=== PATIENT | female | born 1950 | race Caucasian/White ===

== ENCOUNTER → 2017-12-27 | Outpatient (CLI) | payer MEDICARE ==
[2017-12-27 11:18] LABS: Basophils % (A) 1 %; Eosinophils # (A) 0.2 k/uL (0-0.7); Eosinophils % (A) 4 %; HCT 45.9 % (34.0-46.0); HGB 14.8 gm/dL (11.4-16.0); Lymphocytes # (A) 1.5 k/uL (1.0-4.8); Lymphocytes % (A) 32 %; MCHC 32.3 g/dL (31.0-37.0); MCV 89.8 fL (80.0-100.0); Mean Platelet Volume 6.5; Monocytes # (A) 0.2 k/uL (0-1.0); Monocytes % (A) 4 %; Neutrophils # (A) 2.7 k/uL (1.3-7.7); Neutrophils % (A) 58 %; Platelet Count 211 k/uL (150-450); RBC 5.11 m/uL (3.80-5.40); RDW 13.6 % (11.5-15.5); WBC 4.7 k/uL (3.8-10.6)
[2017-12-27 11:28] LABS: INR 1.1 (<1.2); Partial Thromboplastin Time 23.9 sec (22.0-30.0); Prothrombin Time 10.3 sec (9.0-12.0)
[2017-12-27 11:34] LABS: Potassium 4.3 mmol/L (3.5-5.1)
== END | disposition home or self-care (01) ==
LOC: LABPAT 10:36
PROVIDERS: ATTEND Orthopaedic Surgery
DX: Z01.818 Encounter for other preprocedural examination (principal); Z79.01 Long term (current) use of anticoagulants
CPT/HCPCS: 36415; 80051; 85025; 85610; 85730; 86850; 86900; 86901; 87070; 93005

== ENCOUNTER → 2022-03-28 | Outpatient (CLI) | payer MEDICARE ==
[2022-03-28 10:50] VITALS: BP 175/94; PULSE 73; RESP 18; TEMP 98.2
--- NOTE | 2022-03-28 10:53 | P.CON ---
Consult Note - . Consult date: 03/28/22 Assessment/Plan:: HISTORY OF PRESENT ILLNESS: 71 yr old female as a referral from Dr Kern presents today with severe and chronic LBP for several years secondary to DDD, neuroforaminal stenoses and facet arthropathy for evaluation. Patient states her lower back pain is 3 out of 10 in intensity, dull, throbbing and waxes and wanes throughout the day with a burning pain down the left lower extremity. States her left lower pain is provoked by evening and standing on her toes. Pain is relieved with medications (Aleve, Tylenol OTC), topicals, physical therapy in November 2021 which made it worse, chiropractic treatments years ago, daily home exercise regimen, use of a hot top and rest. PMH: HTN, Hypothyroidism, OA PSH: R Shoulder Total Arthroplasty, R Hip Total Arthroplasty SH: Never smoker, Occasional ETOH use, No illicit drug use. FH: Non contributory All: See list Meds: See list REVIEW OF ORGAN SYSTEMS: CONSTITUTIONAL: No fevers or chills. No recent weight loss. HEENT: No visual acuity loss, eye pain, difficulties with hearing. No nosebleeds. No difficulty swallowing. RESPIRATORY: Denies any troubles with breathing or dyspnea on exertion. CARDIOVASCULAR: Denies any chest pain, palpitations, or recent heart attacks. GASTROINTESTINAL: Denies fatty food intolerance. Has change in bowel habits and gas bloat. GENITOURINARY: Denies any blood in urine. Has increased urinary frequency. NEUROLOGICAL: + numbness and tingling along the distal extremities. No seizure disorders or headaches. MUSCULOSKELETAL: + back pain SKIN: No skin cancer. No rash. PSYCHIATRIC: Denies current depression or suicidal tho ughts. ENDOCRINE: Denies current thyroid disorders. Denies any blood sugar glucose intolerance. HEME/LYMPHATIC: Denies any lumps and bumps around the neck. History of deep venous thrombosis. ALLERGY/IMMUNOLOGY: No immunoglobulin therapy. No immune deficiencies. BREAST: Denies current breast lumps, pain or nipple discharge. Physical Examinations : Constitutional : Cooperative , not in acute distress . HEENT: Neck supple. No Lymphadenopathy. Normal thyroid size . Eyes no ptosis , no icterus, no photophobia . Hearing intact. Normal oropharynx. No Thrush. Respiratory : Chest clear to auscultations bilaterally. No wheezing. No rhonchi. Cardiovascular : Regular rate and rhythm , S1 / S2. No S3 . No S4. Gastrointestinal : Abdomen soft. No tenderness. Bowel sounds x 4. No organomegaly . Genitourinary : Deferred. Neurologic : Cranial nerve II to XII intact. No focal neurological deficits. Psychiatric : alert & oriented x 3. Matching mood & appropriate affect. Judgment & insight intact. Lymphatic No Lymphadenopathy. Musculoskeletal : Cervical Spine Motor strength in the deltoid and biceps: Normal right side. Normal Left side Motor strength biceps and the wrist extensors: Normal right side . Normal left side Motor strength in the triceps muscle: Normal right side. Normal left side Deep tendon reflexes: Normal at the biceps. Normal at Brachioradialis. Normal at triceps Cervical facet loading test: positive bilaterally Spurling test: positive bilaterally Neck distraction test: positive bilaterally Neeru sign: positive bilaterally Lumbar spine Motor strength lower extremities ,thigh and legs 5/5 Right side , 5/5 Left side Deep tendon reflexes : Normal Knee Jerk. Normal Ankle Jerk Vertebral body tenderness over Lumbar facet Loading Test: positive Right / positive Left L4-L5, L5-S1 Range of motion of the lumbar spine Flexion 30 degrees, extension 10 degrees Straight Leg Raise test: Left/ Right positive at degree Wendy test: positive right / positive left. Severe tenderness over the Sacroiliac joint on the Right / Left sides Gaenslen test: positive bilaterally Seated flexion test: positive bilaterally. Imaging: MRI of the lumbar spine without contrast from 11/02/21 reviewed Assessment/ Plan : Recommendation of the facet blocks of the medial branches, left L4-L5, L5-S1 #1. May need a series of injections, up until RFA, for optimal pain relief. Risks, benefits of procedure discussed and patient verbalized understanding. Denies aspirin or anti- coagulant use or medical history of diabetes. All questions answered. I have spent greater than 50 minutes on patient care today. Dr Lan was available by phone for the evaluation of this patient. The time was used to review the medical records including relevant urine studies and Prescription history (MAPs), review of the available imaging, evaluation and examination of the patient, coordination of care with the medical staff and if applicable referring physicians, as well as creation of the medical record PQRS Measure Charge Sheet Mode of Arrival: Ambulatory - Pain Location Bilateral Lower Back Non-Pharmacological Interventions: Heat, Inactivity, Physical Therapy, Position/Reposition, Sitting Pharmacological Interventions: PRN Medication, Topical Medication PQRS Narrative: Smoking Status Never smoker Blood Pressure 175/94 Pain Intensity [Bilateral 3 Lower Back] Scale Used Numeric (1 - 10) Hx Alcohol Use (MH) No Home Medications: Ambulatory Orders Levothyroxine Sodium [Synthroid] 112 mcg PO DAILY 09/24/14 Acetaminophen-Codeine 300-30mg [Tylenol #3] 1 tab PO Q8H PRN #30 tablet 01/09/18 Aspirin 325 mg PO BID #60 tab 01/09/18 Docusate [Colace] 100 mg PO DAILY #30 capsule 01/09/18 traMADol HCl [Ultram] 50 mg PO Q6H PRN #40 tab 01/09/18
== END ==
LOC: PNWHC3 10:05
PROVIDERS: ATTEND Specialist
DX: M51.36 Other intervertebral disc degeneration, lumbar region (principal); M48.02 Spinal stenosis, cervical region; G89.29 Other chronic pain; M47.816 Spondylosis without myelopathy or radiculopathy, lumbar region; I10 Essential (primary) hypertension; E03.9 Hypothyroidism, unspecified; M19.90 Unspecified osteoarthritis, unspecified site; Z88.5 Allergy status to narcotic agent; Z88.8 Allergy status to other drugs, medicaments and biological substances
CPT/HCPCS: 99211

== ENCOUNTER 2022-04-28 11:07 | Day surgery (SDC) | payer MEDICARE ==
[~2022-04-28 11:07] MED LIST: LACTATED RINGERS 1,000 ML IV SCH; LIDOCAINE 1% (10MG/ML) FOR IV START INTRADERMA PRN
[2022-04-28 11:34] VITALS: TEMP 96.9
[2022-04-28] MEDS ORDERED: LACTATED RINGERS 1,000 ML IV ONE (11:39)
[2022-04-28] MEDS ORDERED: hydrALAZINE HCL 20 MG/ML 1 ML VIAL IVP ONE (12:21)
[2022-04-28] MEDS ORDERED: MIDAZOLAM 2 MG/2 ML VIAL ONE (12:52)
[2022-04-28] MEDS ORDERED: fentaNYL (PF) 50 MCG/ML 2 ML AMP ONE (12:52)
[2022-04-28] MEDS ORDERED: methylPREDNISolone ACETATE 80 MG/ML 1 ML VIAL ONE (12:52)
[2022-04-28] MEDS ORDERED: IOPAMIDOL M200 10 ML VIAL ONE (12:52)
--- NOTE | 2022-04-28 13:08 | P.PCN ---
Date of Procedure: 04/28/22 Procedure(s) Performed: PREOPERATIVE DIAGNOSIS: 1- Lumbar Degenerative Disc Diseases 2-Lumbar spondylosis with Facet arthropathy without myelopathy POSTOPERATIVE DIAGNOSIS: Same as preop diagnosis. PROCEDURE 1. Lumbar epidural steroid injection under fluoroscopic guidance at the L4-5 level. (Fluoroscopy imaging was available in radiology department) 2. Lumbar epidurogram. ANESTHESIA: Local with 1% lidocaine 3 ml and , moderate sedation with intravenous Versed 1 mg ,and fentanyle 50 Mcg EBL: Minimal PROCEDURE INDICATION: The patient with low back pain and radiculitis symptoms unresponsive to conservative treatment. Fluoroscopy was used to optimize visualization of the needle placement and to maximize safety. PROCEDURE DESCRIPTION / TECHNIQUE: The patient was seen and identified in the preoperative area. Risks, benefits, complications including but not limited to infections ,bleeding ,allergic reaction to the medications ,nerve damage and not complete pain releife , and alternatives were discussed with the patient. The patient agreed to proceed with the procedure and signed the consent. IV was started, and vital signs were stable. Patient was taken to the OR and time out was completed. The patient was placed in the prone position on procedure table and a pillow was placed under the abdomen to reduce lumbar lordosis. The lumbosacral area was prepped and draped in the usual sterile fashion.ere closely monitored during the procedure. Con scious sedation was used during the procedure to decrease patients anxiety. Vital signs was monitered during the entire procedure. Using anterior-posterior fluoroscopy, the L4-5 interlaminar space was identified and the skin over this site was marked and then infiltrated with 1% lidocaine subcutaneously. Subsequently, a 20-gauge Tuohy epidural needle was inserted and advanced toward the epidural space using the ``Loss of resistance technique and guided by AP and lateral fluoroscopy. The correct needle position in the epidural space was verified with the injection of 2 mL of the water soluble contrast dye Isovue 200 contrast and observing an excellent epidurogram with the epidural spread of the dye, after negative aspiration for blood and CSF and in the absence of paresthesias. Again after negative aspiration, a 6 ml mixture containing 60 mg of Depo-medrol , and 2 ml of preservative free Normal Saline, and 2 ml of preservative free lidocaine 1% solution was injected and a washout o f epidurogram was seen. Needle was withdrawn intact, skin was cleansed, and bandages were applied. COMPLICATIONS: None DISPOSITION / PLANS: The patient was placed in a supine position and transferred to the recovery area in a stable condition for observation. There was no evidence of lower extremity motor or sensory deficit after the procedure. Patient was discharged from the recovery room after meeting discharge criteria. Home discharge instructions were given to the patient by the staff. The patient was reexamined prior to discharge. The patient will schedule a follow up in the clinic in 2-4 weeks.
[2022-04-28] MEDS ORDERED: IV FLUID CONTINUATION 600 ML IV ONE (13:16)
[2022-04-28 13:21] VITALS: BP 138/61; PULSE 78; RESP 18
--- NOTE | 2022-04-28 15:55 | FL ---
EXAMINATION TYPE: FL guided pain mgmt statistic DATE OF EXAM: 04/28/2022 HISTORY: Fluoroscopy time 3 seconds of fluoroscopy provided. IMPRESSION: 1. Fluoroscopy time.
== END 2022-04-28 13:44 | disposition home or self-care (01) ==
LOC: ORPAIN 11:07
PROVIDERS: ATTEND Specialist
DX: M47.816 Spondylosis without myelopathy or radiculopathy, lumbar region (principal); M51.36 Other intervertebral disc degeneration, lumbar region; Z88.8 Allergy status to other drugs, medicaments and biological substances; Z79.899 Other long term (current) drug therapy; Z79.82 Long term (current) use of aspirin
CPT/HCPCS: 62323; J2250; J0360; J1040; J3010; Q9966

== ENCOUNTER → 2022-05-11 | Outpatient (CLI) | payer MEDICARE ==
[2022-05-11 14:55] VITALS: BP 134/87; PULSE 80; RESP 18; TEMP 98.9
--- NOTE | 2022-05-11 14:56 | P.PAINPG ---
PQRS Measure Charge Sheet Comment: A 71 yr old female with a history of severe and chronic low back pain secondary to lumbar degenerative disc diseases and lumbar spondylosis with facet arthropathy presents today for evaluation status post LESI L4-L5. Patient states she experienced 100% relief status post procedure. Pain level is currently at 2/10 in intensity, frequent shooting/burning/shooting pain that is worse at bedtime. Localized in the L hip pain that radiates towards her toes. Pain is relieved with heat, medications (Tylenol OTC), topicals, sitting, PT last in October 2021 which provoked the pain. Interventional pain procedures completed include LESI L4-L5 x1 Patient is currently on Tylenol OTC Patient denies any side effects of the medication(s), denies excessive drowsiness or sleepiness, denies suicidal ideation and reports that the current pain medication is helping to control the pain and improve activities of daily living. Patient denies any motor or sensory deficits. Patient denies any fever or night sweats, denies any change in the bowel movements or urination. Physical Examination: -Constitutional: Cooperative. Not in acute distress . -HEENT: Neck is supple. No lymphadenopathy. No thyromegaly. Normal thyroid size. Eyes: No ptosis , no icterus, no photophobia. ENT: No auditory deficits. Normal oropharynx. No Thrush. - Respiratory: Chest clear to auscultations bilaterally. No wheezing. No rhonchi. - Cardiovascular: Regular rate and rhythm. S1 / S2 , no S3 , no S4. - Gastrointestinal: Abdomen soft no tenderness. Bowel sounds positive in all four quadrants. No organomegaly. - Genitourinary: Deferred. - Neurologic: Cranial nerve II to XII intact. No focal neurological deficits. - Psychatric: Alert & oriented x 3. Matching mood & appropriate affect. Judgment and insight intact. - Lymphatic: No Lymphadenopathy. - Musculoskeletal: Cervical spine: Muscle bulk/ tone/ strength in the bilateral upper extremities normal Vertebral body tenderness to palpation over Facet loading test positive Thoracic spine Muscle bulk / tone/ strength in the bilateral paraspinal muscles normal Vertebral body tender to palpation over Facet loading test positive Lumbar spine: Motor bulk/ tone/ strength lower extremities , thigh and legs : 5/5 Deep tendon reflexes : Normal Knee Jerk. Normal Ankle Jerk . Vertebral body tenderness to palpation over Lumbar Facet Loading Test positive over BL L4-L5, L5-S1 with jump reflex, L>R Straight Leg Raise: positive at 30 degrees right side/ left side Gaenslen's Test positive Sacral spine : Severe tenderness over the Sacroiliac joint: right side / left side Range of motion: Flexion of the lumbar spine <60 degrees Range of motion: Extension of the lumbar spine <20 degrees Gaenslen's Test positive Romaine's Test positive Wendy test: positive right side / left side Thigh Thrust Test Sacral Thrust Test Assessment and plan: Chronic low back pain secondary to lumbar degenerative disc disease , lumbar spondylosis with facet arthropathy without myelopathy Recommendation of BL facet blocks of the medial branches L4-L5, L5-S1 #1. May need a series of injections, up until RFA, for optimal pain relief. Risks, benefits of procedure discussed and pt verbalized understanding. Denies anticoagulant use or medical history of diabetes. All patient questions answered MAPS reviewed and it was appropriate. I have spent 31 minutes on patient care today. Dr Lan was available by phone for the evaluation of this patient. The time was used to review the medical records including relevant urine studies and Prescription history (MAPs), review of the available imaging, evaluation and examination of the patient, coordination of care with the medical staff and if applicable referring physicians, as well as creation of the medical record PQRS Narrative: Smoking Status Never smoker Hx Alcohol Use (MH) No Home Medications: Ambulatory Orders Levothyroxine Sodium [Synthroid] 100 mcg PO DAILY 09/24/14 Acetaminophen [Tylenol Extra Strength] 500 mg PO Q6H PRN 04/27/22 Aspirin 81 mg PO DAILY 04/27/22 Aspirin/Acetaminophen/Caffeine [Excedrin Migraine Caplet] 1 each PO DIRECTED PRN 04/27/22 Naproxen Sodium [Aleve] 220 mg PO BID PRN 04/27/22 lisinopriL [Zestril] 20 mg PO DAILY 04/27/22 Controlled Substance Measures - Controlled Substance Measures Is patient prescribed a controlled substance at discharge?: No
== END ==
LOC: PNWHC3 14:18
PROVIDERS: ATTEND Specialist
DX: M51.36 Other intervertebral disc degeneration, lumbar region (principal); M47.816 Spondylosis without myelopathy or radiculopathy, lumbar region; G89.29 Other chronic pain; Z88.8 Allergy status to other drugs, medicaments and biological substances
CPT/HCPCS: 99211

== ENCOUNTER → 2022-08-01 | Outpatient (CLI) | payer MEDICARE ==
[2022-08-01 13:44] VITALS: BP 130/80; PULSE 62; RESP 18
--- NOTE | 2022-08-01 16:21 | P.PAINPG ---
Objective - Vital Signs Vital signs: Vital Signs Temp Pulse 62 08/01/22 13:40 Resp 18 08/01/22 13:40 BP 130/80 08/01/22 13:40 Pulse Ox 97 08/01/22 13:40 FiO2 Intake & Output 07/31/22 08/01/22 08/01/22 18:59 06:59 18:59 Weight 88.904 kg PQRS Measure Charge Sheet Mode of Arrival: Ambulatory Comment: A 72 yr old female with a history of severe and chronic low back pain secondary to lumbar degenerative disc diseases and lumbar spondylosis with facet arthropathy without myelopathy presents today for evaluation s/p TPIs of BL lumbar/ sacral paraspinal muscles. Pt states she experienced 0 % pain relief . Pain level is currently at 5 /10 in intensity, constant, localized in lumbar sine, dull/ achy/ sharp/ shooting towards the L hip and LLE. Pain is provoked by . Pain is alleviated with PT in Oct 2021, home stretching regimen, heat, medications (Ultram prn), topicals, repositioning and rest. Interventional pain procedures completed include TPIs of BL Lumbosacral paraspinals Patient is currently on DENIES Patient denies any side effects of the medication(s), denies excessive drowsiness or sleepiness, denies suicidal ideation and reports that the current pain medication is helping to control the pain and improve activities of daily living. Patient denies any motor or sensory deficits. Patient denies any fever or night sweats, denies any change in the bowel movements or urination. Physical Examination: -Constitutional: Cooperative. Not in acute distress . - Neurologic: Cranial nerve II to XII intact. No focal neurological deficits. - Psychatric: Alert & oriented x 3. Matching mood & appropriate affect. Judgment and insight intact. - Musculoskeletal: Cervical spine: Muscle bulk/ tone/ strength in the bilateral upper extremities normal Vertebral body tenderness to palpation over Spurling test positive Distraction test positive Facet loading test positive Thoracic spine Muscle bulk / tone/ strength in the bilateral paraspinal muscles normal Vertebral body tender to palpation over Facet loading test positive Lumbar spine: Motor bulk/ tone/ strength lower extremities , thigh and legs : 5/5 Deep tendon reflexes : Normal Knee Jerk. Normal Ankle Jerk . Vertebral body tenderness to palpation over L4, L5 Lumbar Facet Loading Test positive Straight Leg Raise: positive at 30 degrees right side/ left side Gaenslen's Test positive Sacral spine : Severe tenderness over the Sacroiliac joint: right side / left side Range of motion: Flexion of the lumbar spine <60 degrees Range of motion: Extension of the lumbar spine <20 degrees Gaenslen's Test positive Romaine's Test positive Wendy test: positive right side / left side Thigh Thrust Test Sacral Thrust Test Assessment and plan: Chronic low back pain secondary to lumbar degenerative disc disease , lumbar spondylosis with facet arthropathy without myelopathy Pt is strongly considering trying to wait to try MBB that lead to ablation. Also discussed a peripheral nerve neurostimulator implant of which she is watchign a video on it to decide. She is disinterested in medication management. Risks, benefits of procedure discussed and pt verbalized understanding. Denies anticoagulant use or medical history of diabetes. All patient questions answered MAPS reviewed and it was appropriate. I have spent less than 30 minutes on patient care today. Dr Lan was available by phone for the evaluation of this patient. The time was used to review the medical records including relevant urine studies and Prescription history (MAPs), review of the available imaging, evaluation and examination of the patient, coordination of care with the medical staff and if applicable referring physicians, as well as creation of the medical record - Pain Location Lower Back Non-Pharmacological Interventions: Heat, Home Exercise, Physical Therapy, Position/Reposition, Sitting, Stretching Pharmacological Interventions: Epidural, PRN Medication, Topical Medication PQRS Narrative: Smoking Status Never smoker Blood Pressure 130/80 Pain Intensity [Lower Back] 5 Scale Used Numeric (1 - 10) Hx Alcohol Use (MH) No Home Medications: Ambulatory Orders Levothyroxine Sodium [Synthroid] 100 mcg PO DAILY 09/24/14 Acetaminophen [Tylenol Extra Strength] 500 mg PO Q6H PRN 04/27/22 Aspirin 81 mg PO DAILY 04/27/22 lisinopriL [Zestril] 20 mg PO DAILY 04/27/22 Atorvastatin [Lipitor] 10 mg PO HS 07/11/22 Ibuprofen [Advil] 200 - 400 mg PO Q6HR PRN 07/11/22 diphenhydrAMINE [Benadryl] 25 mg PO BID PRN 07/11/22 Controlled Substance Measures - Controlled Substance Measures Is patient prescribed a controlled substance at discharge?: No
== END ==
LOC: PNWHC3 13:21
PROVIDERS: ATTEND Specialist
DX: M51.36 Other intervertebral disc degeneration, lumbar region (principal); M47.816 Spondylosis without myelopathy or radiculopathy, lumbar region; G89.29 Other chronic pain; Z88.8 Allergy status to other drugs, medicaments and biological substances
CPT/HCPCS: 99211

== ENCOUNTER → 2022-09-15 | Outpatient (CLI) | payer MEDICARE ==
[2022-09-15 14:30] VITALS: BP 152/76; PULSE 96; RESP 18; TEMP 98.9
--- NOTE | 2022-09-15 14:34 | P.PAINPG ---
PQRS Measure Charge Sheet Comment: A 72 yr old female with a history of severe and chronic low back pain x 14 mo secondary to lumbar degenerative disc diseases and lumbar spondylosis with facet arthropathy without myelopathy presents today for evaluation s/p BL MBB L4-L5, L5-S1 #1. Pt states she experienced % pain relief x days s/p procedure. Pain level is currently at 5/10 in intensity, constant, localized in lower lumbar spine, thorobbing in character w shooting towards the BL hips and LLE. Pain is accompanied w L foot numbness occasionally. Pain is provoked by bending/lifting. Pain is alleviated with medications, topicals, injections, PT x 5-6 sessions in Oct 2021 which provoked pain, hot showers, heating pad, sitting w LEs elevated, repositioning and rest. Interventional pain procedures completed include ESIs L4-L5, BL MBB L3-L5, Lumbar TPIs Patient is currently on Tylenol, Advil Patient denies any side effects of the medication(s), denies excessive drowsiness or sleepiness, denies suicidal ideation and reports that the current pain medication is helping to control the pain and improve activities of daily living. Patient denies any motor or sensory deficits. Patient denies any fever or night sweats, denies any change in the bowel movements or urination. Physical Examination: -Constitutional: Cooperative. Not in acute distress . - Neurologic: Cranial nerve II to XII intact. No focal neurological deficits. - Psychatric: Alert & oriented x 3. Matching mood & appropriate affect. Judgment and insight intact. - Musculoskeletal: Cervical spine: Muscle bulk/ tone/ strength in the bilateral upper extremities normal Vertebral body tenderness to palpation over Spurling test positive Distraction test positive Facet loading test positive Thoracic spine Muscle bulk / tone/ strength in the bilateral paraspinal muscles normal Vertebral body tender to palpation over Facet loading test positive Lumbar spine: Motor bulk/ tone/ strength lower extremities , thigh and legs : 5/5 Deep tendon reflexes : Normal Knee Jerk. Normal Ankle Jerk . Vertebral body tenderness to palpation over Lumbar Facet Loading Test positive Straight Leg Raise: positive at 30 degrees right side/ left side Gaenslen's Test positive Sacral spine : Severe tenderness over the Sacroiliac joint: right side / left side Range of motion: Flexion of the lumbar spine <60 degrees Range of motion: Extension of the lumbar spine <20 degrees Gaenslen's Test positive Romaine's Test positive Wendy test: positive right side / left side Thigh Thrust Test Sacral Thrust Test Assessment and plan: Chronic low back pain secondary to lumbar degenerative disc disease , lumbar spondylosis with facet arthropathy without myelopathy Pt did not exhibit sufficient pain relief w prior MBB procedure. She was negative for most SI joint dysfunction exams. She did not have sufficient pain relief w prior TPI injections and is disinterested in IPG placement. She will follow up w her orthopedic surgeon, Dr Kern, to explore additional treatment options. All patient questions answered ill for I have spent less than 30 minutes on patient care today. Dr Lan was available by phone for the evaluation of this patient. The time was used to review the medical records including relevant urine studies and Prescription history (MAPs), review of the available imaging, evaluation and examination of the patient, coordination of care with the medical staff and if applicable referring physicians, as well as creation of the medical record - Pain Location Bilateral Lower Back Non-Pharmacological Interventions: Heat, Inactivity, Physical Therapy, Sitting Pharmacological Interventions: Block, Epidural, PRN Medication, Scheduled Medication, Topical Medication PQRS Narrative: Smoking Status Never smoker Hx Alcohol Use (MH) No Home Medications: Ambulatory Orders Levothyroxine Sodium [Synthroid] 100 mcg PO QAM 09/24/14 Acetaminophen [Tylenol Extra Strength] 500 mg PO Q6H PRN 04/27/22 Aspirin 81 mg PO DAILY 04/27/22 lisinopriL [Zestril] 20 mg PO HS 04/27/22 Atorvastatin [Lipitor] 10 mg PO HS 07/11/22 Ibuprofen [Advil] 200 - 400 mg PO Q6HR PRN 07/11/22 Controlled Substance Measures - Controlled Substance Measures Is patient prescribed a controlled substance at discharge?: No
== END | disposition home or self-care (01) ==
LOC: PNWHC3 13:47
PROVIDERS: ATTEND Specialist
DX: M47.896 Other spondylosis, lumbar region (principal); M51.36 Other intervertebral disc degeneration, lumbar region
CPT/HCPCS: 99211

== ENCOUNTER → 2022-09-19 | Outpatient (CLI) | payer MEDICARE ==
--- NOTE | 2022-09-19 11:40 | US ---
EXAMINATION TYPE: US abdomen complete DATE OF EXAM: 09/19/2022 COMPARISON: NONE CLINICAL HISTORY: 72-year-old female R10.9 RIGHT FLANK PAIN. Right flank pain x 1.5 months. TECHNIQUE: Multiple sonographic images of the abdomen are obtained. FINDINGS: EXAM MEASUREMENTS: Liver Length: 19.3 cm Gallbladder Wall: 0.2 cm CBD: 0.9 cm Spleen: 10.6 cm Right Kidney: 12.4 x 5.7 x 4.7 cm Left Kidney: 11.3 x 5.1 x 5.7 cm TRAY WORKER NOTES: Limited due to gas. Pancreas: Limited visibility due to bowel gas. Liver: Enlarged increased echogenicity. Lobulated cystic area in the posterior right lobe measurin.1 x 7.1 x 5.0 cm. Anechoic area seen within the right lobe: 1.2 x 1.0 x 0.8 cm suggesting a cyst. Gallbladder: No abnormal distention, wall thickening, pericholecystic fluid, or shadowing calculi. Evidence for sonographic Humphrey's sign: No CBD: Mildly dilated at 9 mm. Spleen: Appears wnl Right Kidney: Mild fullness of the renal collecting system. Left Kidney: Prominent collecting system. Upper IVC: Appears wnl Abd Aorta: Prox and mid appear ectatic up to 2.7 cm. Iliacs were obscured. IMPRESSION: 1. Slight increased echogenicity of the liver could reflect mild fatty infiltration. There is mild he patomegaly 19.3 cm. 2. A lobulated lesion posterior right liver lobe measuring 8.1 cm, likely a cyst. 3-6 months follow-u p ultrasound to reassess. 3. Normal gallbladder by ultrasound. 4. Bile duct mildly dilated up to 9 mm. Likely chronic for the patient. Correlate with alkaline phosp hatase and bilirubin levels. 5. Fullness of the bilateral renal collecting systems probably transient. Follow-up with patient's ki dney function. If concern for early developing hydronephrosis, short interval follow-up ultrasound co uld be performed.
--- NOTE | 2022-09-19 12:03 | US ---
EXAMINATION TYPE: US pelvic complete DATE OF EXAM: 09/19/2022 COMPARISON: NONE CLINICAL HISTORY: 72-year-old female Right upper flank pain x 1.5 months. Hx ectopic in 198 2, D and C. . TECHNIQUE: Transabdominal sonographic images of the pelvis were acquired. Transvaginal sonographic images were offered to visualize left ovary. Patient declined transvaginal scanning at this time. Date of LMP: About 15 years ago. FINDINGS: EXAM MEASUREMENTS: Uterus: 7.8 x 4.1 x 2.4 cm Endometrial Stripe: 0.32 cm Right Ovary: 2.8 x 1.2 x 1.1 cm Left Ovary: Not visualized 1. Uterus: Anteverted and otherwise Appears wnl 2. Endometrium: Appears wnl 3. Right Ovary: Appears wnl 4. Left Ovary: Not visualized 5. Bilateral Adnexa: Appear wnl 6. Posterior cul-de-sac: Appears wnl IMPRESSION: 1. Unable to visualize the left ovary on transabdominal scanning. Patient declined transvaginal scann ing at this time. 2. Otherwise, unremarkable transabdominal sonographic examination of the pelvis.
== END | disposition home or self-care (01) ==
LOC: RADUSWWP 07:49
PROVIDERS: ATTEND Family Medicine
DX: R16.0 Hepatomegaly, not elsewhere classified (principal); K76.9 Liver disease, unspecified
CPT/HCPCS: 76700; 76856

== ENCOUNTER → 2022-10-20 | Outpatient (CLI) | payer MEDICARE ==
--- NOTE | 2022-10-20 09:20 | CT ---
EXAMINATION TYPE: CT lumbar spine wo con DATE OF EXAM: 10/20/2022 9:14 AM COMPARISON: None HISTORY: Spondylolisthesis, lumbar region CT DLP: 1228.5 mGycm Automated exposure control for dose reduction was used. Unenhanced CT of the lumbar spine was performed. Bone and soft tissue window settings are submitted as well as coronal and sagittal reconstructions. L1-L2: Normal disc space height. No disc herniation protrusion or central stenosis. No facet joint arthropathy. No evidence for foraminal encroachment. L2-L3: Mild degenerative disc space narrowing. Mild posterior disc bulge. No evidence for herniation or central stenosis. Foramina are patent bilaterally. L3-L4: Mild degenerative disc space narrowing. Mild posterior disc bulge. No evidence for herniation or central stenosis. Foramina are patent bilaterally. L4-L5: Mild degenerative disc space narrowing. Grade 1 anterolisthesis L4 and L5 measuring 4 mm. Post erior disc bulge with effacement ventral thecal sac. Hypertrophic degenerative change facet joints. M oderate central stenosis. Bilateral foraminal encroachment. L5-S1: Grade 1 anterolisthesis L5 on S1 of 2 mm. Severe facet joint arthropathy. Mild degenerative di sc space narrowing. No evidence for central stenosis or disc herniation. Mild bilateral neural forami nal encroachment. No evidence for fracture. No osseous lesions seen. IMPRESSION: 1. Multilevel degenerative disc disease. 2. 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 3. Grade 1 anterolisthesis of L4 on L5 and L5 on S1.
== END | disposition home or self-care (01) ==
LOC: RADCTMAIN 08:57
PROVIDERS: ATTEND Orthopaedic Surgery
DX: M47.27 Other spondylosis with radiculopathy, lumbosacral region (principal); M51.16 Intervertebral disc disorders with radiculopathy, lumbar region; M43.17 Spondylolisthesis, lumbosacral region; M48.061 Spinal stenosis, lumbar region without neurogenic claudication; M51.26 Other intervertebral disc displacement, lumbar region
CPT/HCPCS: 72131

== ENCOUNTER → 2022-10-24 | Outpatient (CLI) | payer MEDICARE | END | disposition home or self-care (01) | LOC: LABPAT 12:46 | PROVIDERS: ATTEND Orthopaedic Surgery | DX: Z01.812 Encounter for preprocedural laboratory examination (principal); M43.16 Spondylolisthesis, lumbar region; M48.061 Spinal stenosis, lumbar region without neurogenic claudication; Z22.322 Carrier or suspected carrier of Methicillin resistant Staphylococcus aureus | CPT/HCPCS: 87070 ==

== ENCOUNTER 2022-11-01 10:58 | Observation (INO) | payer MEDICARE ==
--- NOTE | 2022-11-01 06:35 | P.HPOR ---
History of Present Illness H&P Date: 10/24/22 .D:Date: 10/24/22 : 11:53am .T:Title: [facility] Date of :[birth year] Age: 72 year Height: 5'7" Weight: 220 lbs BP:120/68 BMI: 34.46 kg/m2 Occupation: Retired teacher VAS: 3 CHIEF COMPLAINT: pre-operative review of the planned lumbar (L4-S1) MIS Transforaminal Lumbar Interbody Fusion DOI: Chronic DOS: None Duration of current treatment regiment: >1 year HISTORY : Xrays No new xrays taken in office Trauma or injury No Work-Related No Pain description aching, burning, sharp, increasing . Location posterior Patient notes that their pain radiates to left lower extremity Activity Modification Hand Dominance TREATMENTS COMPLETED: 6 weeks of PT completed? Month and Year of last PT date? 10/2021 Yes How many sessions? 12 Did it help? No Physician directed home exercise completed? yes , daily without relief for greater than 3 months. Medications yes List: Tylenol and Advil PRN with mild relief. Has previously trialed Medrol Dosepak and Muscle relaxer (unspecified) without relief. Alternative interventions Chiropractic: No Massage therapy: No Brace: No Injections Yes (lumbar TRUDY (04/28/2022) and bilateral facet blocks (08/30/2022) without relief) RFA: No SUBJECTIVE: Ms. Rosen returns to the office for a recheck of their low back pain and to review the planned lumbar (L4-S1) MIS Transforaminal Lumbar Interbody Fusion. Patient reports no changes to her symptoms since the time of the last appointment. Patient continues to complain of low back pain radiating into the left lower extremity. Overall the patient has seen a progressive increase in symptoms since their onset. Ms. Rosen symptoms are exacerbated with prolonged standing and ambulation, due to this they notes that it is increasingly difficult for Ms. Rosen to complete many of their daily tasks. Patient is having sleep disturbances as well due to their ongoing pain and associated symptoms. Regarding treatments, the patient has previously trialed all abovementioned treatment modalities without relief of her symptoms. Patient denies trialing any other modalities at this time. For their symptoms, the patient has been taking Motrin and Tylenol PRN without relief of his symptoms. Otherwise the patient denies any f/c/sob/cp, no incision concerns, no bladder or bowel retention/incontinence, no perineal numbness/tingling, and ambulates independently. HPI: Ms. Rosen last returned to the office on 10/06/2022 for a recheck of their low back pain. Patient reports a continues , worsening low back pain extending into the left lower extremity. Furthermore the patient does also report that she has seen an increase in numbness and tingling about the L4-L5 dermatomal distribution of the left lower extremity as well. Overall the patient has seen a progressive increase in symptoms since their onset. Ms. Rosen symptoms are exacerbated with prolonged standing, ambulation, flexion/extension, and high impact movements like walking up and down stairs, due to this they notes that it is increasingly difficult for Ms. Rosen to complete many of their daily tasks. Patient is having severe sleep disturbances as well due to their ongoing pain and associated symptoms. Regarding treatments, the patient has previously trialed all abovementioned treatment modalities without relief of her symptoms. Patient denies trialing any other modalities at this time. For their symptoms, the patient has been taking Motrin ,Advil, and Tylenol all without relief. Otherwise the patient denies any f/c/sob/cp, no bladder or bowel retention/incontinence, no perineal numbness/tingling, and ambulates independently. Ms. Rosen was last seen on 02/28/2022 regarding her lumbar spine. She reports pain persisting for several years that has progressively worsened over time with no known injury or trauma to indicate an exact onset. Regarding her symptoms, the patient reports primarily left of midline lumbar pain radiating into the left buttocks and lower extremity and foot. This pain is quite diffuse and is made worse with prolonged standing and ambulation. Patient denies any numbness or tingling about the left lower extremity. As for treatments, the patient has perviously trialed 12 sessions of PT, completing her round on 10/2021, without any relief. Additionally she has trialed a physician recommended home exercise program for greater than 3 months without relief as well. In addition to this, sh does take Tylenol and Advil PRN with mild relief. She has previously trialed a Medrol Dosepak and muscle relaxer both without any relief. Overall she denies any lasting improvements to her symptoms with the modalities trialed thus far. Otherwise she denies any bladder or bowel retention/incontinence, no perineal numbness/tingling, and ambulates independently. The patients' past social, medical, family, surgical history, as well as review of systems, have been reviewed. Please refer to the Neurosurgery History and Physical form that has been scanned in to our electronic medical record system. 14 points review of systems completed and as stated in HPI, all other systems reviewed are negative. Social History: Reviewed, see appropriate section of the chart for details. P3 Social History: Smoking: never a smoker P3 Alcohol: occasional alcohol P3 Family History: Reviewed, see appropriate section of the chart for details. P2 Past Medical History: Reviewed, see appropriate section of the chart for details. P1 Current Medications: Rx: aspirin 81 mg tablet,delayed release Ref: 0 Rx: levothyroxine 100 mcg capsule Ref: 0 Rx: lisinopriL 20 mg tablet Ref: 0 Rx: Motrin Ref: 0 Rx: TylenoL Ref: 0 P1 PHYSICAL EXAMINATION: General: Awake, alert, appropriate for age, in no acute distress. HEENT: No unusual neck masses around region of lateral neck triangle, thyroid, supraclavicular groove Heart: Regular rate and rhythm, normal S1, S2 and no murmur/gallop. Lungs: Clear to auscultation bilaterally with no use of accessory muscles. Extremities: Skin warm and dry without acute lesions, coloration, temperature, skin intact, no tenderness or erythema Integument: Hairy patches: ABSENT Dorsal skin dimples: ABSENT Cafe au lait spots: ABSENT Surgical incisions: NONE Palpation: Please see Pain drawing on Intake sheet for further detail. Midline spinal tenderness: No E6 Cervical Tenderness: No E6 Paralumbar tenderness: No E6 Parathoracic tenderness: No E6 Buttocks tenderness: No E6 Sacroiliac Tenderness: No POSTURAL and MUSCULO-SKELETAL EVALUATION: Coronal Balance: NEUTRAL Recumbent testing: Patient is able to lay flat on back Sagittal Balance: NEUTRAL Shoulder Profile: LEVEL Pelvic Girdle: LEVEL Neck ROM: UNRESTRICTED Lumbar ROM: RESTRICTED Shoulder ROM: Symmetrical Hip ROM: Symmetrical Knee ROM: Symmetrical Hands: Normal appearance, symmetrical Feet: Normal appearance, Symmetrical VASCULAR STATUS : LEFT RIGHT Wrist Pulses INTACT INTACT Pedal Pulses (Dors. pedis & post.tibialis) INTACT INTACT Color NORMAL NORMAL Edema Absent Absent NEUROLOGIC EXAMINATION: Mental Status:Awake and alert, fully oriented, with normal attention, concentration and memory, and fluent, appropriate speech. Cranial Nerves: I: Olfactory not tested. II: Visual acuity normal, no visual field deficit noted with confrontation. III,IV: Normal pupillary reflexes & intact extraocular movements without nystagmus. V,: Intact symmetrical facial sensation. VII: Intact symmetrical facial motor movement VIII: Hearing intact. IX,X: Intact gag, swallow, & normal voice. XI: Sternocleidomastoid, trapezius function intact. XII: Tongue midline with normal movements. L'hermitte's Sign: Negative / absent Spurling'Sign: Absent bilaterally. Cubital percussion test: Absent bilaterally. Corrigan-Tinel sign - Carpal region: Absent bilaterally. Straight Leg Raising: Absent bilaterally. Crossed straight leg raise: negative O8 MOTOR EXAM (0-5/5, N/T Muscle appearance: Symmetrical, without signs of atrophy or dystrophy UPPER EXTREMITY RIGHT LEFT Shoulder Abduction 5/5 5/5 Biceps 5/5 5/5 Triceps 5/5 5/5 Wrist Extension 5/5 5/5 Hand Intrinsics 5/5 5/5 Human Resources Operations Coordinator 5/5 5/5 LOWER EXTREMITY RIGHT LEFT Hip Flexion 5/5 5/5 Knee Extension 5/5 5/5 Knee Flexion 5/5 5/5 Dorsiflexion 5/5 4+/5 Plantarflexion 5/5 4/5 EHL 5/5 5/5 FHL 5/5 5/5 Toe heel walk / heel-toe walk intact while maintaining satisfactory balance? No Squatting/straightening w/o assistance to a min of 60 degree knee flexion? No Single leg stance: intact Trendelenburg sign negative bilaterally REFLEXES(0-4/2, NT)Upper ExtremityLower Extremity Right 2 2 Left 2 2 Pathological Reflexes RIGHT LEFT Corrigan's Absent Absent Clonus Absent Absent Babinski Absent Absent Sensory system (0-4, N/T) Test type RU DANN RL LL Joint-Position 2 2 2 2 Vibration 2 2 2 2 Pain & LT sense 2 2 2 2 Dermatomal Deficit: None None None L4-L5 Gait and Functional Evaluation: Ambulatory aids: Independent Romberg's test: Intact bilaterally Steady Gait RADIOGRAPHIC STUDIES: XRay Lumbar Multiview (AP, Lateral, Flexion, Extension) with AP pelvis; 5 views taken at [facility] on 10/06/22 of Lumbar Spine and Pelvis: L4-5 and L5-S1 GI spondylolisthesis that accentuates on Flexion films. There is disruption of sagittal alignment due to this. There is disc height loss at these levels with segmental kyphotic changes on flexion films and subsequent hyperlordosis on extension films showing high degree of motion at these segments. No overt instability. No fracture. No lesions noted. AP pelvis shows congruent level pelvis no fracture MRI scancompleted at Outside facility from 11/02/2021 of Lumbar Spine: L4-5 and L5-S1 spondylolisthesis redemonstrated nearly reduced on supine film. There is disc dessication at both levels with acute disc injury at L5-S1 noted. There is central and foraminal stenosis related to ligamental hypertrophy, facet hypertrophy, pars elongation and epidural lipamatosis at these levels. There is b/l foraminal stenosis at these levels as well related to the slip and the spondylotic changes. No acute fractures noted. No lesions. IMPRESSION: It was my pleasure to have seen and examined Christina. I reviewed the patient's clinical syndrome, physical findings, and imaging studies during the appointment today. It is my impression that the patient has a diagnosis of. 1. L4-5 and L5-S1 spondylolisthesis grade 1 2. L4-S1 central and B/L foraminal stenosis 3.low back pain 4. left lower extremity radiculopathy I outlined the natural course history without intervention and various interventional options. PLAN: Based on my findings I suggest the following course of action: - Ordered a CT scan without contrast of the lumbar spine for pre-operative planning. -Advised patient to continue with supplements, health maintenance, and home exercise programs. Patient expressed understanding and will continue with these modalities. -I discussed treatment options with the patient, including operative and non- operative options, and they have elected to proceed with the following surgical procedure: lumbar (L4-S1) MIS Transforaminal Lumbar Interbody Fusion (88301, [id number], [id number], [id number], [id number], [id number]) The indications, risks, benefits, and alternatives to surgery were discussed with the patient at length. Specifically (but not limited to) the risks of infection, stiffness, recurrence of symptoms, need for revision surgery, local numbness, neurovascular injury, and blood clots were discussed. The patient's questions were answered. The decision to proceed was made. Consent will be obtained for the procedure. Discussed that she will need pre-operative clearance from her PCP. Spine Surgery Risk Review Ms. Rosen is presenting for evaluation of low back pain. It was my pleasure to have seen and examined Ms. Rosen. In our visit today we have had a chance to go over subjective complaints, physical examination findings and treatments including the natural course history without intervention and various interventional options. The patients imaging demonstrates: XRay Lumbar Multiview (AP, Lateral, Flexion, Extension) with AP pelvis; 5 views taken at [facility] on 10/06/22 of Lumbar Spine and Pelvis: L4-5 and L5-S1 GI spondylolisthesis that accentuates on Flexion films. There is disruption of sagittal alignment due to this. There is disc height loss at these levels with segmental kyphotic changes on flexion films and subsequent hyperlordosis on extension films showing high degree of motion at these segments. No overt instability. No fracture. No lesions noted. AP pelvis shows congruent level pelvis no fracture MRI scancompleted at Outside facility from 11/02/2021 of Lumbar Spine: L4-5 and L5-S1 spondylolisthesis redemonstrated nearly reduced on supine film. There is disc dessication at both levels with acute disc injury at L5-S1 noted. There is central and foraminal stenosis related to ligamental hypertrophy, facet hypertrophy, pars elongation and epidural lipamatosis at these levels. There is b/l foraminal stenosis at these levels as well related to the slip and the spondylotic changes. No acute fracture noted. No lesions. On physical exam, Ms. Rosen demonstrates significantly restricted lumbar ROM with left lower extremity radiculopathy. Patient does also demonstrate left lower extremity weakness with dermatomal deficits about the L4-L5 distribution. Overall functional testing limited due to pain. I have explained to the patient that as their condition progresses it will cause further neurological deficits and eventual paralysis. Based on the patients imaging, physical exam, and the rapid progression and disabling nature of their symptoms, at this time I recommend surgery in the form or a: lumbar (L4-S1) MIS Transforaminal Lumbar Interbody Fusion. I discussed the risk and benefits of this procedure at length with Ms. Rosen. The patient agreed to considered pursuing the procedure abovementioned. Prior to surgery, she should follow up with her PCP (Cardio, ID, IM etc) for clearance. Questions were invited and answ ered, and the patient wishes to proceed as outlined below. Currently, I am recommendin.lumbar (L4-S1) MIS Transforaminal Lumbar Interbody Fusion 2.Follow up with PCP for surgical clearance 3.Review of surgical risks and benefits as well as an educational packet on the proposed surgical procedure. Risks: All surgical procedures come with inherent risks, including those related to positioning, anesthesia, intraoperative findings, and postoperative complications. It is important to understand that surgery does not come with any guarantee of a successful outcome as complications and adverse events are always possible. The patient was given a handout in office today discussing the surgical procedure and risks associated with the intervention, both of which were discussed with the patient. These risks include but are not limited to the following: * Experiencing same, different or even worse symptoms in back, neck, arms, or legs compared to before surgery. Requiring further surgery or other forms of treatment presently or at some time in the future at same or other levels of the intended spine surgery. On an extreme but fortunately relatively rare basis severe complication such as blindness, stroke, heart attack, temporary and/or permanent nerve injury, paralysis, coma, or may occur, sometimes without known explanation. Surgical complications may include but are not limited to risk of infection, fluid accumulation in the surgical dissection site, including a seroma or hematoma, that requires additional surgery, wound drainage, bleeding, new numbness or weakness, vision changes/loss, spinal fluid leakage, non-healing and/or infected incision, headaches, difficulty or inability to swallow, hoarseness, hemopneumothorax, pneumothorax, impotence, retrograde ejaculation, vaginal dryness; injury to nerves, spinal cord, blood vessels, lymphatics or other vital organs (i.e., bowel injury, injury to the great vessels); heterotopic bone formation; complications related to the hardware such as screws, rods, cages including misplaced hardware, device failure, instrumentation at the wrong spine level, hardware fracture/breakage, or hardware loosening; vertebral failure of the spinal column above or below the newly placed hardware; retained surgical instrumentations or devices and the need for further surgery. * Medical risks of the planned spine surgery include but are not limited to generalized Infections to the whole body or local areas outside of the surgical site (sepsis), heart attack, bleeding, anaphylaxis, meningitis, seizure, epilepsy, hearing loss, burn laird, laceration of the head or other areas of the body, bruising, hypersensitivity of the skin, bladder over distension; allergic reaction; shoulder injury related to positioning; fat, blood and air clots to other areas of the body like heart, lungs, brain; failure of internal organs such as lungs, kidneys, liver and excessive bleeding. If blood transfusions are necessary, note that transfusions may cause intolerance reactions such as anaphylaxis or other complex reactions. Despite best efforts, the results of spine surgery might not heal in terms of bone, soft tissues such as skin, fascia, ligaments, and joints. Additionally, in order to achieve best possible results, spine surgery may be carried out beyond the initially planned levels and involve decompression, fusion including insertion of hardware at levels other than the original intended area of surgical interest change some portions of the procedure in order to ensure the best possible outcomes. With spine surgery and spinal fusion, there are different off label uses of instrumentation (devices, implants and hardware) as well as biological substances (bone morphogenic proteins, demineralized bone matrix) as well as using extra bone from allograft sources (i.e. cadaver bone) or autograft (iliac crest bone, ribs, or the spine itself). The patient has been given information about these practices and their inherent risks and benefits. [facility] is an educational center that serves as a training facility for neurosurgical and orthopedic TEACHER VOCAL and Nursing students. Physician assistants are medically trained surgical providers who function in the outpatient, inpatient, and operating room setting under the direct supervision of the attending surgeon. [facility] has multiple operating rooms with single and overlapping rooms running daily. They currently function under the required guidelines as produced by the [facility] Finance Committee with regards to the overlapping rooms and will continue to comply with changes to this policy as they occur. The requirements include and are complied with as follows: (1) the critical portions of the overlapping rooms will not occur at the same time, (2) the attending physician will be physically present during the critical portions of the procedure and immediately available during the entire case, and (3) a back-up attending is designated should the primary attending not be immediately available. The patient has had a chance to review all the listed information, has been given print outs detailing this information, and has had all his/her questions answered to their satisfaction. It was my pleasure to have seen and examined Ms. Rosen. In our visit today we have had a chance to go over my understanding of our patient's current condition, the natural course history without intervention and various interventional options. Questions were invited and answered, and the patient wishes to proceed as outlined above. I have seen and examined the patient for 25 minutes and we have spent more than 50% of the time in repeat and detailed counseling about the patient's condition, its natural course history with out and as much as can be predicted with surgery and re-review of various surgical treatment options. In conclusion, Ms. Rosen requested we proceed with the above suggested surgery and are willing to accept risks and limitations of the suggested surgery as nature of the disease process and our best attempts at treatment for the condition. Thank you again for allowing us to be part of your patient's care. Please don't hesitate to contact me if you have any further questions. Signed and authenticated by: Follow- up: 2 weeks post-op Patient Education: (Informational booklet, instructions, etc) given at today's appointment: Yes .ED:Patient Education: Y Plan at next visit: review progress Medications Reviewed: YES In our visit today Ms. Rosen and I have had a chance to go over my understanding of the patient's current condition, the natural course history without intervention and various interventional options. Questions were invited and answered, and the patient wishes to proceed as outlined above. I will be sure to keep you updated afterMs. Rosen returns here for further follow-up. Thank you again for your referral. Please do not hesitate to contact me if you have any further questions. Signed and authenticated by: Keith Eckert [facility] [address] [place] [id number] This message is confidential, intended only for the named recipient(s) and may contain information that is privileged or exempt from disclosure under applicable law. If you are not the intended recipient(s), you are notified that the dissemination, distribution or copying of this information is strictly prohibited. If you received this message in error, please notify the sender then delete this message. Patient verbalizes understanding of the information discussed. # SIGNED BY Keith Kern (RAFAEL)10/26/2022 11:59AM Past Medical History Past Medical History: Cancer, Hyperlipidemia, Thyroid Disorder Additional Past Medical History / Comment(s): hx migraines, arthritis, skin cancer HAD COVID IN MARCH 2022. History of Any Multi-Drug Resistant Organisms: None Reported Past Surgical History: Bladder Surgery, Orthopedic Surgery Additional Past Surgical History / Comment(s): D&C,. joseph foot surGERY FOR PLANTAR FASCIATIS joseph knee scopes,total rt hip, bladder suspension Past Anesthesia/Blood Transfusion Reactions: Family History of Problems w/ Anesthesia Additional Past Anesthesia/Blood Transfusion Reaction / Comment(s): mother- cold and shaky Smoking Status: Never smoker - Past Family History Mother Family Medical History: Cancer, CVA/TIA, Deep Vein Thrombosis (DVT) Additional Family Medical History / Comment(s): ovarian cancer Father Family Medical History: Congestive Heart Failure (CHF) Medications and Allergies Home Medications Medication Instructions Recorded Confirmed Type Levothyroxine Sodium [Synthroid] 100 mcg PO QAM 09/24/14 10/27/22 History Acetaminophen [Tylenol Extra 500 mg PO Q6H PRN 04/27/22 10/27/22 History Strength] Aspirin 81 mg PO DAILY 04/27/22 10/27/22 History lisinopriL [Zestril] 20 mg PO HS 04/27/22 10/27/22 History Atorvastatin [Lipitor] 10 mg PO HS 07/11/22 10/27/22 History Ibuprofen [Advil] 200 - 400 mg PO Q6HR PRN 07/11/22 10/27/22 History Allergies Allergy/AdvReac Type Severity Reaction Status Date / Time Antihistamines - Alkylamine AdvReac shelia, Verified 10/27/22 11:22 lightheaded Physical Examination Osteopathic Statement: *. No significant issues noted on an osteopathic structural exam other than those noted in the History and Physical/Consult.
[~2022-11-01 10:58] MED LIST changes: +ACETAMINOPHEN TAB 500 MG TAB PO PRN; +GABAPENTIN 300 MG CAP PO PRN; -LACTATED RINGERS 1,000 ML IV SCH; -LIDOCAINE 1% (10MG/ML) FOR IV START INTRADERMA PRN; +ONDANSETRON 4 MG/2 ML VIAL IVP ONE; +ONDANSETRON 4 MG/2 ML VIAL IVP PRN; +TRANEXAMIC ACID IN NACL,ISO-OS 1,000 MG in SALINE 1 100ML.BAG IVPB PRN
[2022-11-01] MEDS: LACTATED RINGERS 1,000 ML IV SCH (11:57)
[2022-11-01] MEDS: DEXAMETHASONE SOD PHOSPHATE 4 MG/ML 1 ML VIAL IV ONE (11:57)
[2022-11-01] MEDS ORDERED: ACETAMINOPHEN TAB 500 MG TAB ONE (12:13)
[2022-11-01] MEDS ORDERED: SUCCINYLCHOLINE CHLORIDE 200 MG/10 ML VIAL IV ONE (13:23)
[2022-11-01] MEDS ORDERED: fentaNYL (PF) 50 MCG/ML 2 ML AMP ONE (13:23)
[2022-11-01] MEDS ORDERED: ALBUMIN HUMAN 5% (25gm) 500 ML VIAL IVPB ONE (13:23)
[2022-11-01] MEDS ORDERED: MIDAZOLAM 2 MG/2 ML VIAL ONE (13:23)
[2022-11-01] MEDS ORDERED: HYDROmorphone (PF) 1 MG/ML ONE (13:23)
[2022-11-01] MEDS ORDERED: ROCURONIUM 10 MG/ML (5 ML VIAL) IV ONE (13:23)
[2022-11-01] MEDS ORDERED: TRANEXAMIC ACID IN NACL,ISO-OS 1,000 MG/100 ML BAG ONE (13:23)
[2022-11-01] MEDS ORDERED: NEOSTIGMINE 1 MG/ML 10 ML VIAL ONE (13:23)
[2022-11-01] MEDS ORDERED: PROPOFOL 10 MG/ML 20 ML VIAL IV ONE (13:23)
[2022-11-01] MEDS ORDERED: GLYCOPYRROLATE 0.2 MG/ML 2 ML VIAL ONE (13:23)
[2022-11-01] MEDS ORDERED: KETAMINE 10 MG/ML 20 ML VIAL ONE (13:23)
[2022-11-01] MEDS ORDERED: PHENYLEPHRINE-0.9% NACL SYG 1,000 MCG/10 ML SYRINGE ONE (13:23)
[2022-11-01] MEDS ORDERED: LIDOCAINE 2% INJ 20 MG/ML (2 ML VIAL) ONE (13:23)
[2022-11-01] MEDS ORDERED: ePHEDrine 50 MG/ML 1 ML VIAL ONE (13:23)
[2022-11-01] MEDS ORDERED: HEPARIN SODIUM 1,000 UN/ML (10ML VL) MISCELLANE ONE (14:07)
[2022-11-01] MEDS ORDERED: GELATIN SPONGE,ABSORB (LARGE) 1 EACH SPONGE MISCELLANE ONE (14:08)
[2022-11-01] MEDS ORDERED: LACTATED RINGERS 1,000 ML IV ONE ×2 (15:00→17:44)
[2022-11-01] MEDS ORDERED: SENNOSIDES-DOCUSATE SODIUM 1 EACH TAB PO PRN (17:36)
[2022-11-01] MEDS ORDERED: HYDROmorphone 1 MG/ML 1 ML SYRINGE IVP PRN (17:36)
[2022-11-01] MEDS ORDERED: MAGNESIUM HYDROXIDE 2,400 MG/10 ML CUP PO PRN (17:36)
--- NOTE | 2022-11-01 17:57 | FL ---
Intraoperative/procedural fluoroscopic services were provided. Total fluoroscopy time is 4 minutes 18 seconds with a total of 2 submitted images to PACS. Please see the operative/procedural note for fur ther details.
[2022-11-01] MEDS: HYDROmorphone 0.5 MG/0.5 ML SYRINGE IVP PRN ×3 (18:08→20:33)
[2022-11-01] MEDS: HYDROcodone/APAP 5-325MG 1 EACH TAB PO PRN (20:59)
[2022-11-02] MEDS: HYDROcodone/APAP 5-325MG 1 EACH TAB PO PRN (00:02)
[2022-11-02] MEDS: ACETAMINOPHEN TAB 325 MG TAB PO SCH ×6 (00:07→23:40)
[2022-11-02] MEDS: DEXAMETHASONE SOD PHOSPHATE 4 MG/ML 1 ML VIAL IV ONE (00:08)
--- NOTE | 2022-11-02 01:11 | P.CONS ---
History of Present Illness - Reason for Consult Consult date: 11/01/22 post operative medical care - Chief Complaint chronic low back pain - History of Present Illness 72 year old female with hypothyroid , hypertension patient is here for scheduled lumbar spine surgery due to chronic low back pain with radiculopathy . she tolerated procedure well, no observed immediate post op complications , tolerating PO intake , denies any numbness tingling in her lower extremities she denies any chest pain , or difficulty breathing ,denies any abd pain nausea or vomiting currently pain is well controlle d Review of Systems Pertinent positives as noted in HPI. All other systems were reviewed and are negative Past Medical History Past Medical History: Cancer, Hyperlipidemia, Thyroid Disorder Additional Past Medical History / Comment(s): hx migraines, arthritis, skin cancer HAD COVID IN MARCH 2022. History of Any Multi-Drug Resistant Organisms: None Reported Past Surgical History: Bladder Surgery, Orthopedic Surgery Additional Past Surgical History / Comment(s): D&C,. joseph foot surGERY FOR PLANTAR FASCIATIS joseph knee scopes,total rt hip, bladder suspension Past Anesthesia/Blood Transfusion Reactions: Family History of Problems w/ Anesthesia Additional Past Anesthesia/Blood Transfusion Reaction / Comm: mother- cold and shaky Smoking Status: Never smoker - Past Family History Mother Family Medical History: Cancer, CVA/TIA, Deep Vein Thrombosis (DVT) Additional Family Medical History / Comment(s): ovarian cancer Father Family Medical History: Congestive Heart Failure (CHF) Medications and Allergies Home Medications Medication Instructions Recorded Confirmed Type Levothyroxine Sodium [Synthroid] 100 mcg PO QAM 09/24/14 10/27/22 History Acetaminophen [Tylenol Extra 500 mg PO Q6H PRN 04/27/22 11/01/22 History Strength] Aspirin 81 mg PO DAILY 04/27/22 10/27/22 History lisinopriL [Zestril] 20 mg PO HS 04/27/22 10/27/22 History Atorvastatin [Lipitor] 10 mg PO HS 07/11/22 11/01/22 History Ibuprofen [Advil] 200 - 400 mg PO Q6HR PRN 07/11/22 10/27/22 History Allergies Allergy/AdvReac Type Severity Reaction Status Date / Time Antihistamines - Alkylamine AdvReac shelia, Verified 11/01/22 11:48 lightheaded Physical Exam Vitals: Vital Signs Temp Pulse Resp BP Pulse Ox 11/01/22 19:43 97.4 F L 61 15 129/70 99 11/01/22 18:35 57 L 17 107/53 98 11/01/22 18:20 70 17 113/55 96 11/01/22 18:01 65 17 148/73 96 11/01/22 17:56 77 14 130/61 99 11/01/22 17:41 96.8 F L 93 14 136/61 99 11/01/22 11:46 97.2 F L 64 18 192/86 99 Intake and Output 11/01/22 11/01/22 11/01/22 06:59 14:59 22:59 Intake Total 1050 1100 Output Total 600 Balance 1050 500 Intake: IV 1050 1100 Output: Urine 500 Estimated Blood Loss 100 Other: Weight 96.3 kg Constitutional: No acute distress, conversant, pleasant Eyes: Anicteric sclerae, moist conjunctiva, Pupils equal round reactive to light ENMT: NC/AT Oropharynx clear, no erythema, or exudates Neck: Supple, no masses, or JVD No carotid bruits No thyromegaly Lungs: Clear to auscultation Clear to percussion Normal respiratory effort, no accessory muscle use Cardiovascular: Heart regular in rate and rhythm, No murmurs, gallops, or rubs No peripheral edema Abdominal: Soft Nontender, no guarding, rebound or rigidity Abdomen moving with respiration Normoactive bowel sounds No hepatomegaly, No splenomegaly No palpable mass No abdominal wall hernia noted Skin: Normal temperature, tone, texture, turgor Extremities: No digital cyanosis No clubbing Pedal pulses intact and symmetrical Radial pulses intact and symmetrical No calf tenderness Psychiatric: Alert and oriented to person, place and time Appropriate affect fair judgement Neuro Muscles Strength 5/5 in all 4 extremities Sensation to light touch grossly present throughout Cranial nerves II-XII grossly intact Lymphatics: no palpable cervical or supraclavicular lymph nodes Assessment and Plan Assessment: hypertension , controlled resume home BP meds, lisinopril hypothyroid , resume levothyroxine chronic low back pain , s/p lumbar spine surgery POD zero management per orthopedic stable from medical stand point follow up renal function and CBC in AM DVT PPX mechanical secondary to spine surgery hold aspirin until cleared by orthospine full code thank you for your consultation
[2022-11-02] MEDS: HYDROmorphone 0.5 MG/0.5 ML SYRINGE IVP PRN ×4 (04:20→21:40)
[2022-11-02] MEDS: LEVOTHYROXINE 100 MCG TAB PO SCH (06:16)
[2022-11-02] MEDS: HYDROcodone/APAP 10-325MG 1 EACH TAB PO PRN ×2 (06:21→15:46)
--- NOTE | 2022-11-02 08:55 | P.PN ---
Subjective Progress Note Date: 11/02/22 Principal diagnosis: Lumbar spondylolisthesis Lumbar stenosis Left lower extremity radiculopathy Patient seen and examined at bedside. Patient was resting comfortably in bed laying on her right side. Surgical dressing is clean dry and intact. Patient states that she has not been up since procedure, encouragement provided to work with physical therapy today. Metcalf catheter may be discontinued when patient is up and about. Patient states that her pain is managed on current regimen. Patient has been afebrile, denies any nausea/vomiting, or chest pain. Objective - Vital Signs Vital signs: Vital Signs Temp 99.2 F 11/02/22 05:00 Pulse 81 11/02/22 05:00 Resp 16 11/02/22 05:00 BP 155/72 11/02/22 05:00 Pulse Ox 99 11/02/22 05:00 FiO2 Intake & Output 11/01/22 11/02/22 11/02/22 18:59 06:59 18:59 Intake Total 2150 590 Output Total 600 1700 Balance 1550 -1110 Weight 96.3 kg Intake: IV 2150 Oral 590 Output: Urine 500 1700 Estimated Blood Loss 100 Other: Voiding Method Indwelling Catheter - Exam Physical Examination General: The patient is awake and alert, in no acute distress Skin: Skin is warm and dry with no obvious rashes or lesions. Hairy patches absent, no dorsal skin dimples, no cafe au lait spots. Surgical incision to lumbar region, dressing CDI. Eye: Pupils are equal, round and reactive to light, extra-ocular movements are intact; there is normal conjunctiva bilaterally. Neck: The neck is supple, there is no tenderness and ROM intact. Cardiovascular: There is a regular rate and rhythm. No murmur, rub or gallop is appreciated. Respiratory: Lungs are clear to auscultation, respirations are non-labored, breath sounds are equal. Gastrointestinal: Soft, non-distended, non-tender abdomen. Back: There is no tenderness to palpation in the midline, paralumbar, parathoracic or buttocks region. There is no obvious deformity . Musculoskeletal: ROM limited secondary to pain and stiffness from surgical procedure. Muscle strength in all major muscle groups of bilateral upper extremities 5/5, bilateral lower extremities 4/5. Neurological: CN 2-12 intact. There are no obvious motor or sensory deficits. Movement and coordination equal and intact. Sensory exam to light touch intact C5-T1 and intact from L2-S1. Reflexes 2/4 in bilateral upper and lower extremities. Negative Hoffmans, babinski, and clonus signs. Psychiatric: Cooperative, appropriate mood & affect, normal judgment. Assessment and Plan Assessment: Lumbar spondylolisthesis Lumbar stenosis Left lower extremity radiculopathy -Postop day 1: L4-S1 minimally invasive PLIF Plan: -Appreciate lifestyle consultant and team management. -Activity: Ambulate QID, OOB all meals, up and about, limit lifting bending twisting to less than 5 lbs. Use walker or cane if needed for stability. -Daily PT/OT, increase ambulation strength and balance. -Pain control: Adequate at this time -Meds: reviewed -GI ppx: senna, Miralax -DC metcalf when up and about, bedside commode if needed -DVT PPX: OK to restart Heparin tonight -Hygiene: Shower today. Maintain dressing clean and dry. Meticulous cleaning after BMs away from the incision site -Encourage IS 10x/hr -Dispo: Anticipate discharge home tomorrow with homecare *I reviewed and discussed this case with my attending Dr. Kern, whom has reviewed this chart and films and is in agreement with assessment and plan of care as outlined above. I have personally seen and examined the patient, performed the documentation and the assessment and plan as written. Number of minutes spent on the visit: 20m.
--- NOTE | 2022-11-02 09:06 | CT ---
EXAMINATION TYPE: CT lumbar spine wo con DATE OF EXAM: 11/02/2022 8:01 AM COMPARISON: Prior study October 20, 2022. Intraoperative x-rays one day earlier. HISTORY: Status post L4-S1 surgery. CT DLP: 1326.70 mGycm Automated exposure control for dose reduction was used. Unenhanced CT of the lumbar spine was performed. Bone and soft tissue window settings are submitted as well as coronal and sagittal reconstructions. There is redemonstration of 5 lumbar type vertebra. There is persistent and stable slight dextroconve x scoliosis centered at L3 level. Osseous structures are demineralized. There are posterior rods and screws transfixing L4-S1 levels bilaterally now present. Metallic disc material at L4-L5 and L5-S1 le vels is now seen. Alignment improved at L4-L5 level on sagittal images. Bilateral screw Positioning a nd disc positioning appears satisfactory. Persistent prominent facet arthropathy in the lower lumbar spine. Multilevel spinous process hypertrophy redemonstrated. Spinal canal remains preserved. No new large disc herniation is seen. Large thin-walled cyst posterior right hepatic lobe is only partially imaged. Sigmoid colonic diverti cula. IMPRESSION: As above.
[2022-11-02 09:50] LABS: Basophils # (A) 0.02 X 10*3/uL (0.00-0.10); Basophils % (A) 0.3 %; Eosinophils # (A) 0.04 X 10*3/uL (0.04-0.35); Eosinophils % (A) 0.5 %; HCT 34.7 % (37.2-46.3); HGB 12.1 g/dL (12.0-15.0); Immature Grans, Automated 0.3 %; Lymphocytes % (A) 17.7 %; MCH 30.8 pg (27.0-32.0); MCHC 34.9 g/dL (32.0-37.0); MCV 88.3 fL (80.0-97.0); Mean Platelet Volume 9.9 fL (9.5-12.2); Monocytes # (A) 0.44 X 10*3/uL (0.20-1.00); NRBC Per 100 WBC 0 /100 WBCS (0.0-0.0); Neutrophils # (A) 5.52 X 10*3/uL (1.80-7.70); Neutrophils % (A) 75.2 %; Platelet Count 165 X 10*3/uL (140-440); RBC 3.93 X 10*6/uL (4.10-5.20); RDW 13.1 % (11.5-14.5); WBC 7.34 X 10*3/uL (4.50-10.00)
[2022-11-02] MEDS: CYCLOBENZAPRINE 5 MG TAB PO PRN ×2 (09:54→18:47)
--- NOTE | 2022-11-02 10:06 | P.OP ---
Date of Procedure: 11/01/22 Preoperative Diagnosis: 1. L4-5 and L5-S1 Grade I spondylolisthesis 2. L4-5 severe stenosis 3. L4-S1 spondylosis 4. Mechanical Low back pain 5. LE weakness with radiculopathy Postoperative Diagnosis: 1. L4-5 and L5-S1 Grade I spondylolisthesis 2. L4-5 severe stenosis 3. L4-S1 spondylosis 4. Mechanical Low back pain 5. LE weakness with radiculopathy Procedure(s) Performed: 1. L4-5 and L5-S1 minimally invasive approach posteriolateral and interbody fusion (51690, 33533) 2. Insertion of biomechanical devices L4-5 and L5-S1 ([id number]) 3. Segmental instrumentation L4-S1 (06982) 4. L4-5 laminectomy, complete facetectomy and foraminotomy for extradural decompression of neural elements beyond that of cage placement (73094) 5. L5-S1 decompression and facetectomy for cage placement and neural decompression (06933) 6. Vertebral body BMA through a separate incision for Allocel integration (46030) Use of IONM Use of microscope Implants: -Globus Creo MIS screws -Zivation expandable cage x2 -Autograft -Allograft -MagnatOs -iFactor -Allocel arthrex Surgeon: Keith Kern Boot Trimmer #1: Domenico Bernard (was present and assisted with all aspects of the case from positioning to dressing placement) Estimated Blood Loss (ml): 100 IV fluids (ml): 1,300 Urine output (ml): 250 Pathology: none sent Condition: stable Disposition: PACU Indications for Procedure: Ms. Rosen is presenting for evaluation of low back pain. It was my pleasure to have seen and examined Ms. Rosen. In our visit today we have had a chance to go over subjective complaints, physical examination findings and treatments including the natural course history without intervention and various interventional options. The patients imaging demonstrates: XRay Lumbar Multiview (AP, Lateral, Flexion, Extension) with AP pelvis; 5 views taken at [facility] on 10/06/22 of Lumbar Spine and Pelvis: L4-5 and L5-S1 GI spondylolisthesis that accentuates on Flexion films. There is disruption of sagittal alignment due to this. There is disc height loss at these levels with segmental kyphotic changes on flexion films and subsequent hyperlordosis on extension films showing high degree of motion at these segments. No overt instability. No fracture. No lesions noted. AP pelvis shows congruent level pelvis no fracture MRI scancompleted at Outside facility from 11/02/2021 of Lumbar Spine: L4-5 and L5-S1 spondylolisthesis redemonstrated nearly reduced on supine film. There is disc dessication at both levels with acute disc injury at L5-S1 noted. There is central and foraminal stenosis related to ligamental hypertrophy, facet hypertrophy, pars elongation and epidural lipamatosis at these levels. There is b/l foraminal stenosis at these levels as well related to the slip and the spondylotic changes. No acute fracture noted. No lesions. On physical exam, Ms. Rosen demonstrates significantly restricted lumbar ROM with left lower extremity radiculopathy. Patient does also demonstrate left lower extremity weakness with dermatomal deficits about the L4-L5 distribution. Overall functional testing limited due to pain. I have explained to the patient that as their condition progresses it will cause further neurological deficits and eventual paralysis. Based on the patients imaging, physical exam, and the rapid progression and disabling nature of their symptoms, at this time I recommend surgery in the form or a: lumbar (L4-S1) MIS Transforaminal Lumbar Interbody Fusion. I discussed the risk and benefits of this procedure at length with Ms. Rosen. The patient agreed to considered pursuing the procedure abovementioned. Prior to surgery, she should follow up with her PCP (Cardio, ID, IM etc) for clearance. Questions were invited and answered, and the patient wishes to proceed as outlined below. Currently, I am recommendin.lumbar (L4-S1) MIS Transforaminal Lumbar Interbody Fusion Description of Procedure: The patient was seen and examined in the preoperative area. All preoperative protocols were followed. Informed consent was obtained risks and benefits of the procedure were discussed at length. Risks including bleeding infection damage to the surrounding tissue and risk of reoperation were discussed with the patient. Risk of anesthesia up to and including was a discussed with the patient. These are outlined in the risk review. They were willing to accept these risks and all of the risks of surgery. The patient was given a weight- based dose of antibiotics in the form of [antibiotic]. The patient was seen and evaluated by the anesthesia team who deemed them fit for surgery. The site was marked, the patient was willing to proceed with the procedure. The patient was transferred to the operative suite by the Department of anesthesia. They were then drifted off to sleep by the department anesthesia and GETA was performed. The patient tolerated this well. [Rock catheter was placed by nursing staff, atraumatically]. Once confirmation of lines and ventilation the patient was transferred to a prone Mika table very carefully. All bony prominences including wrists, elbows, axilla, chest, hips, and thighs, and feet were padded very well. Special attention was paid to the genitalia and these were padded accordingly. SCDs were placed on bilateral lower extremities and were connected. Arms were well padded and placed [on arm boards up and out in the 90/90 position]. Once in position, again we confirmed good ventilation capabilities and that lines were running appropriately. The patient's lumbar spine was then exposed. 1010s were placed outlining the incision site. Standard alcohol was used to clean the incision site and allowed to dry. C-arm was used to biomark the patient and confirm level for incision which was marked with a skin marker. Operative briefing was performed with all teams and everyone in agreement to proceed. The patient was then prepped and draped in a normal sterile fashion. Timeout was then performed and all parties were in agreement with the procedure to be performed. Fluoroscopic guidance was used for the placement of screws at L4 through S1. Jamshidi was placed bilaterally into L4 through S1 using biplanar fluoroscopy. A wire was placed in the Jamshidi's void once removed. We then proceeded with placement of screws on the right-hand side first. The screws were placed under lateral fluoroscopy over the wires and wires removed once the screw was at the vertebral body level. Screws were placed from L4 through S1 on the right-hand side first and tested and all tested above 20 mA. We then turned our attention to decompression and interbody placement. Fluoroscopic guidance was then used to place a tubular retractor system in an optimal position on the Left-hand side of the patient at L5-S1. Skin incision was made and sequential dilation taken down to the L5-S1 interspace facet joints and pars. Once the tubular retractor system was in a good position AP and lateral imaging confirmed its positioning. The operating microscope was then brought in for visualization. We then performed limited myomectomy which uncovered the facet joints and revealed L5 pars defect. We have performed a L- shaped cut over the lamina and inferior articular facet of L5 using a high- speed bur. This loosened the facet. Osteotome was then used to complete this cut and the facet was removed entirely [along with the pars defect]. We then performed high-speed bur cut transversely over the superior articular facet of S1 osteotome was then used to complete this cut and this opened up the foramen in this area for a pedicle to pedicle decompression. We finished our medial decompression with a 3 Kerrison performing an extra dural decompression of neural elements. The ligamentum flavum was removed as it was compressive in pathology. An [id number] decompression was then performed using Kerrison rongeurs. We then turned our attention back to the foramen the disc was identified the foraminal ligament was removed and the neural elements were mobilized this mobilization allowed for protection the disc space was identified. An osteotome was then used to access the disc space and under lateral fluoroscopic guidance it was advanced until it was centered in A to P view and anterior on the lateral view. We then perform sequential shaving until endplates were clear of any cartilage and disc material had been removed pituitary was used to remove any further free disc material. Down-biting curet was used to scrape endplates and to reach across midline to remove further disc material across midline. We then used blunt trials to trial the size implant desired. A [12] mm trial was placed and it had good fit and showed good lift and reduction. This was removed. We then irrigated the disc space. A mixture of autograft and allograft was then placed anterior within the disc space and impacted using a blunt trial. The cage was then selected and while protecting neural elements the cage was impacted into position under lateral fluoroscopic guidance. It was then expanded until it met the endplates and created good lift and reduction. The cage was tested and it was stable. Cages then back filled with DBM putty. The stunt woman was removed and the cage was then visualized and tested again it was stable and in good position. AP confirmed good central position. We then irrigated out the area perform meticulous hemostasis inspected the area for any issues and everything was stable. There were no dural tears there was good decompression of the extradural elements. The tubular retractor system was then carefully removed under direct visualization. This was then repeated at the L4-5 interspace. Fluoroscopic guidance was then used to place a tubular retractor system in an optimal position on the Left-hand side of the patient at L4-5. Skin incision was made and sequential dilation taken down to the L4-5interspace facet joints and pars. Once the tubular ret ractor system was in a good position AP and lateral imaging confirmed its positioning. The operating microscope was then brought in for visualization. We then performed limited myomectomy which uncovered the facet joints and revealed L4 pars defect. We have performed a L-shaped cut over the lamina and inferior articular facet of L4 using a high-speed bur. This loosened the facet. Osteotome was then used to complete this cut and the facet was removed entirely [along with the pars defect]. We then performed high-speed bur cut transversely over the superior articular facet of L5 osteotome was then used to complete this cut and this opened up the foramen in this area for a pedicle to pedicle decompression. We finished our medial decompression with a 3 Kerrison performing an extra dural decompression of neural elements to completely decompress across midline and foraminally of this level. The ligamentum flavum was removed as it was compressive in pathology. An [id number] decompression was then performed using Kerrison rongeurs. We then turned our attention back to the foramen the disc was identified the foraminal ligament was removed and the neural elements were mobilized this mobilization allowed for protection the disc space was identified. An osteotome was then used to access the disc space and under lateral fluoroscopic guidance it was advanced until it was centered in A to P view and anterior on the lateral view. We then perform sequential shaving until endplates were clear of any cartilage and disc material had been removed pituitary was used to remove any further free disc material. Down- biting curet was used to scrape endplates and to reach across midline to remove further disc material across midline. We then used blunt trials to trial the size implant desired. A 10 mm trial was placed and it had good fit and showed good lift and reduction. This was removed. We then irrigated the disc space. A mixture of autograft and allograft was then placed anterior within the disc space and impacted using a blunt trial. The cage was then selected and while protecting neural elements the cage was impacted into position under lateral fluoroscopic guidance. It was then expanded until it met the endplates and created good lift and reduction. The cage was tested and it was stable. Cages then back filled with DBM putty. The stunt woman was removed and the cage was then visualized and tested again it was stable and in good position. AP confirmed good central position. We then irrigated out the area perform meticulous hemostasis inspected the area for any issues and everything was stable. There were no dural tears there was good decompression of the extradural elements. The tubular retractor system was then carefully removed under direct vi sualization. The reminder of the screws were then placed on the LHS over the wires in a fashion as described above. With screws in position we measured for a nichol once the nichol was measured was selected and the nichol was placed subfascially bilaterally. We then lock set screws into S1 and L5 bilaterally and sequentially reduced set screws into [L4] bilaterally for spondylolisthesis reduction this was done under lateral fluoroscopic guidance. This showed [good reduction of listhesis as well as] maintenance of height and decompression. Set screws were then final tightened using torque limiter. Tabs were then broken and confirmed to be removed. Final imaging was then taken AP and lateral confirmed good placement of screws as well as cage with good reduction of listhesis in good decompression. Wounds were then copiously irrigated with normal sterile saline. Deep fascia was closed with 0 Vicryl superficial subcu tissue closed with 2-0 Vicryl and skin closed with skin keisha. Wound edges approximated very well. The wound was then cleaned and dressed sterilely with operative foam dressings. The patient was transferred back to their hospital bed atraumatically. Patient was then awakened and extubated by the department of anesthesia having tolerated the procedure very well with no complications. They were transferred to the postoperative care unit in stable condition.
[2022-11-02] MEDS: LACTATED RINGERS 1,000 ML IV SCH (11:20)
[2022-11-02] MEDS ORDERED: diazePAM 2 MG TAB PO STA (11:29)
[2022-11-02] MEDS: LORATADINE 10 MG TAB PO SCH (13:51)
--- NOTE | 2022-11-02 17:39 | P.PN ---
Subjective Progress Note Date: 11/02/22 (Delayed charting seen at 11:15) Patient is 72-year-old female of hypothyroidism, hypertension, and history of migraine headaches who initially presented for elective minimally invasive PLIF. She had no immediate postoperative complications. Patient seen and examined at bedside. She complains of a headache that started 4 days prior to admission. She also complains of back pain and feeling tight overall. She states that her headache is behind her eyes, it is not associated with any visual changes. She does not feel it is her migraine but she does have history of those. Takes Excedrin Migraine but that did not work at home. General: nontoxic, mild distress secondary to pain, appears at stated age Derm: warm, dry Head: atraumatic, normocephalic, symmetric Eyes: EOMI, no lid lag, anicteric sclera Mouth: no lip lesion, mucus membranes moist Cardiovascular: S1S2 reg, no murmur, positive posterior tibial pulse bilateral, Lungs: CTA bilateral, no rhonchi, no rales , no accessory muscle use Abdominal: soft, nontender to palpation, no guarding, no appreciable organomegaly Ext: no gross muscle atrophy, no edema, no contractures Neuro: CN II-XI grossly intact, no focal neuro deficits Psych: Alert, oriented, appropriate affect Assessment/plan: 72-year-old female status post minimally invasive posterior lumbar interbody fusion management orthopedic surgery Headache -Valium 1, increased caffeine intake, continue with pain medications Hypertension with elevated blood pressures -Suspect secondary to pain -Follow blood pressure -Continue lisinopril Hypothyroidism -Synthroid Hypothyroidism -Synthroid Thank you for allowing us to participate in the care of this pleasant patient. Do not hesitate to contact us with questions. Someone can be reached from the [facility] hospitalist group all hours of the day at [phone] or via perfect serve. Objective - Vital Signs Vital signs: Vital Signs Temp 98.7 F 11/02/22 11:20 Pulse 77 11/02/22 11:20 Resp 18 11/02/22 11:20 BP 132/83 11/02/22 11:20 Pulse Ox 93 L 11/02/22 11:20 FiO2 Intake & Output 11/01/22 11/02/22 11/02/22 18:59 06:59 18:59 Intake Total 2150 590 Output Total 600 1700 2100 Balance 1550 -1110 -2100 Weight 96.3 kg Intake: IV 2150 Oral 590 Output: Urine 500 1700 2100 Estimated Blood Loss 100 Other: Voiding Method Indwelling Catheter Indwelling Catheter - Labs CBC & Chem 7: 11/02/22 06:16 Labs: Abnormal Lab Results - Last 24 Hours (Table) 11/02/22 Range/Units 06:16 RBC 3.93 L (4.10-5.20) X 10*6/uL Hct 34.7 L (37.2-46.3) %
[2022-11-02] MEDS: lisinopriL 20 MG TAB PO SCH (21:40)
[2022-11-02] MEDS: ATORVASTATIN 10 MG TAB PO SCH (21:40)
[2022-11-03] MEDS: CYCLOBENZAPRINE 5 MG TAB PO PRN (04:50)
[2022-11-03] MEDS: LEVOTHYROXINE 100 MCG TAB PO SCH (04:50)
[2022-11-03] MEDS: ACETAMINOPHEN TAB 325 MG TAB PO SCH ×3 (04:50→18:01)
[2022-11-03] MEDS: LACTATED RINGERS 1,000 ML IV SCH (04:51)
--- NOTE | 2022-11-03 08:44 | P.PN ---
Subjective Progress Note Date: 11/03/22 Principal diagnosis: Lumbar spondylolisthesis Lumbar stenosis Left lower extremity radiculopathy Patient seen and examined at bedside. Patient was resting comfortably in bed. Patient does have c/o uncontrolled pain in her lower back. Medications will be reviewed and adjusted. Surgical dressing is clean dry and intact. Patient states that she has been up with PT and utilizing bedside commode. Patient has been afebrile, denies any nausea/vomiting, or chest pain. Objective - Vital Signs Vital signs: Vital Signs Temp 98.9 F 11/03/22 04:26 Pulse 95 11/03/22 04:26 Resp 13 11/03/22 04:26 BP 144/83 11/03/22 04:26 Pulse Ox 97 11/03/22 04:26 FiO2 Intake & Output 11/02/22 11/03/22 11/03/22 18:59 06:59 18:59 Output Total 2100 Balance -2100 Output: Urine 2100 Other: Voiding Method Indwelling Catheter # Voids 1 - Exam Physical Examination General: The patient is awake and alert, in no acute distress Skin: Skin is warm and dry with no obvious rashes or lesions. Hairy patches absent, no dorsal skin dimples, no cafe au lait spots. Surgical incision to lien mbar region, dressing CDI. Eye: Pupils are equal, round and reactive to light, extra-ocular movements are intact; there is normal conjunctiva bilaterally. Neck: The neck is supple, there is no tenderness and ROM intact. Cardiovascular: There is a regular rate and rhythm. No murmur, rub or gallop is appreciated. Respiratory: Lungs are clear to auscultation, respirations are non-labored, b reath sounds are equal. Gastrointestinal: Soft, non-distended, non-tender abdomen. Back: There is no tenderness to palpation in the midline, paralumbar, parathoracic or buttocks region. There is no obvious deformity . Musculoskeletal: ROM limited secondary to pain and stiffness from surgical p rocedure. Muscle strength in all major muscle groups of bilateral upper extremities 5/5, bilateral lower extremities 4/5. Neurological: CN 2-12 intact. There are no obvious motor or sensory deficits. Movement and coordination equal and intact. Sensory exam to light touch intact C5-T1 and intact from L2-S1. Reflexes 2/4 in bilateral upper and lower extremities. Negative Hoffmans, babinski, and clonus signs. Psychiatric: Cooperative, appropriate mood & affect, normal judgment. - Labs CBC & Chem 7: 11/02/22 06:16 Labs: Abnormal Lab Results - Last 24 Hours (Table) 11/02/22 Range/Units 06:16 RBC 3.93 L (4.10-5.20) X 10*6/uL Hct 34.7 L (37.2-46.3) % Assessment and Plan Assessment: Lumbar spondylolisthesis Lumbar stenosis Left lower extremity radiculopathy -Postop day 2: L4-S1 minimally invasive PLIF Plan: -Appreciate software sales consultant and team management. -Activity: Ambulate QID, OOB all meals, up and about, limit lifting bending twisting to less than 5 lbs. Use walker or cane if needed for stability. -Daily PT/OT, increase ambulation strength and balance. -Pain control: Adequate at this time -Meds: reviewed -GI ppx: senna, Miralax -DC metcalf when up and about, bedside commode if needed -DVT PPX: Heparin -Hygiene: Shower today. Maintain dressing clean and dry. Meticulous cleaning after BMs away from the incision site -Encourage IS 10x/hr -Dispo: Anticipate discharge home tomorrow with homecare *I reviewed and discussed this case with my attending Dr. Kern, whom has reviewed this chart and films and is in agreement with assessment and plan of care as outlined above. I have personally seen and examined the patient, performed the documentation and the assessment and plan as written. Number of minutes spent on the visit: 20m.
[2022-11-03] MEDS: LORATADINE 10 MG TAB PO SCH (09:40)
[2022-11-03] MEDS: CYCLOBENZAPRINE 5 MG TAB PO SCH ×3 (09:40→20:24)
[2022-11-03] MEDS ORDERED: CAFFEINE-SODIUM BENZOATE 500 MG in SODIUM CHLORIDE 0.9% 1,000 ML IVPB ONE (09:45)
[2022-11-03] MEDS: HYDROcodone/APAP 10-325MG 1 EACH TAB PO SCH ×3 (12:45→20:23)
--- NOTE | 2022-11-03 13:10 | P.PN ---
Subjective Progress Note Date: 11/03/22 Patient is 72-year-old female of hypothyroidism, hypertension, and history of migraine headaches who initially presented for elective minimally invasive PLIF. She had no immediate postoperative complications. She has suffered from a headache since 4 days prior to admission. This has been worsening since admission she about to get a caffine infusion. Patient seen and examined at bedside. Per nursing she had an episode of hypotension when standing with therapy that caused some nausea. She continues to have and headache and back pain with pain around her eyes. She had some nausea this morning. General: nontoxic, mild distress secondary to pain, appears at stated age Derm: warm, dry Head: atraumatic, normocephalic, symmetric Eyes: EOMI, no lid lag, anicteric sclera Mouth: no lip lesion, mucus membranes moist Cardiovascular: S1S2 reg, no murmur, positive posterior tibial pulse bilateral, Lungs: CTA bilateral, no rhonchi, no rales , no accessory muscle use Abdominal: soft, nontender to palpation, no guarding, no appreciable organomegaly Ext: no gross muscle atrophy, no edema, no contractures Neuro: CN II-XI grossly intact, no focal neuro deficits Psych: Alert, oriented, appropriate affect Assessment/plan: 72-year-old female status post minimally invasive posterior lumbar interbody fusion management orthopedic surgery Headache -caffeine given - if no improvement then decadron X 1, compazine and benadryl - no improvement with valium Hypertension with elevated blood pressures -Suspect secondary to pain -Follow blood pressure -Continue lisinopril Hypothyroidism -Synthroid Hypothyroidism -Synthroid Thank you for allowing us to participate in the care of this pleasant patient. Do not hesitate to contact us with questions. Someone can be reached from the [facility] hospitalist group all hours of the day at [phone] or via [email or web address]. Objective - Vital Signs Vital signs: Vital Signs Temp 98.4 F 11/03/22 11:24 Pulse 97 11/03/22 11:24 Resp 18 11/03/22 11:24 BP 138/82 11/03/22 11:24 Pulse Ox 97 11/03/22 11:24 FiO2 Intake & Output 11/02/22 11/03/22 11/03/22 18:59 06:59 18:59 Output Total 2100 Balance -2100 Output: Urine 2100 Other: Voiding Method Indwelling Catheter Indwelling Catheter # Voids 1 1 - Labs CBC & Chem 7: 11/02/22 06:16
[2022-11-03] MEDS: ATORVASTATIN 10 MG TAB PO SCH (20:24)
[2022-11-03] MEDS: lisinopriL 20 MG TAB PO SCH (20:24)
[2022-11-04] MEDS: ACETAMINOPHEN TAB 325 MG TAB PO SCH ×4 (00:24→18:55)
[2022-11-04] MEDS: HYDROcodone/APAP 10-325MG 1 EACH TAB PO SCH ×6 (00:25→20:41)
[2022-11-04] MEDS: LEVOTHYROXINE 100 MCG TAB PO SCH (06:34)
[2022-11-04] MEDS: LACTATED RINGERS 1,000 ML IV SCH (06:36)
--- NOTE | 2022-11-04 07:46 | P.PN ---
Subjective Progress Note Date: 11/04/22 Principal diagnosis: Lumbar spondylolisthesis Lumbar stenosis Left lower extremity radiculopathy Patient seen and examined at bedside. Patient was resting comfortably in bed. Patient states that the adjustment made to her medication has provided her relief of her low back pain. She has c/o sharp pain into her RLE, making it difficult for her to participate with PT and use the restroom. Gabapentin has been ordered. Patient states she has been able to ambulate within room with walker. Surgical dressings are clean dry and intact. Patient has been afebrile, denies any nausea/vomiting, or chest pain. Objective - Vital Signs Vital signs: Vital Signs Temp 98.4 F 11/04/22 05:00 Pulse 86 11/04/22 05:00 Resp 15 11/04/22 05:00 BP 107/69 11/04/22 05:00 Pulse Ox 92 L 11/04/22 05:00 FiO2 Intake & Output 11/03/22 11/04/22 11/04/22 18:59 06:59 18:59 Other: Voiding Method Indwelling Catheter Indwelling Catheter # Voids 1 1 - Exam Physical Examination General: The patient is awake and alert, in no acute distress Skin: Skin is warm and dry with no obvious rashes or lesions. Hairy patches absent, no dorsal skin dimples, no cafe au lait spots. Surgical incision to lumbar region, dressings CDI. Eye: Pupils are equal, round and reactive to light, extra-ocular movements are intact; there is normal conjunctiva bilaterally. Neck: The neck is supple, there is no tenderness and ROM intact. Cardiovascular: There is a regular rate and rhythm. No murmur, rub or gallop is appreciated. Respiratory: Lungs are clear to auscultation, respirations are non-labored, breath sounds are equal. Gastrointestinal: Soft, non-distended, non-tender abdomen. Back: There is no tenderness to palpation in the midline, paralumbar, parathoracic or buttocks region. There is no obvious deformity . Musculoskeletal: ROM limited secondary to pain and stiffness from surgical procedure. Muscle strength in all major muscle groups of bilateral upper extremities 5/5, bilateral lower extremities 4/5. Neurological: CN 2-12 intact. There are no obvious motor or sensory deficits. Movement and coordination equal and intact. Sensory exam to light touch intact C5-T1 and intact from L2-S1. Reflexes 2/4 in bilateral upper and lower extremities. Negative Hoffmans, babinski, and clonus signs. Psychiatric: Cooperative, appropriate mood & affect, normal judgment. - Labs CBC & Chem 7: 11/02/22 06:16 Assessment and Plan Assessment: Lumbar spondylolisthesis Lumbar stenosis Left lower extremity radiculopathy -Postop day 3: L4-S1 minimally invasive PLIF Plan: -Appreciate hospice care consultant and team management. -Activity: Ambulate QID, OOB all meals, up and about, limit lifting bending twisting to less than 5 lbs. Use walker or cane if needed for stability. -Daily PT/OT, increase ambulation strength and balance. -Pain control: Adequate at this time -Meds: reviewed -GI ppx: senna, Miralax -DVT PPX: Heparin -Hygiene: Shower today. Maintain dressing clean and dry. Meticulous cleaning after BMs away from the incision site -Encourage IS 10x/hr -Dispo: Anticipate discharge home later today vs tomorrow with homecare *I reviewed and discussed this case with my attending Dr. Kern, whom has reviewed this chart and films and is in agreement with assessment and plan of care as outlined above. I have personally seen and examined the patient, performed the documentation and the assessment and plan as written. Number of minutes spent on the visit: 20m.
[2022-11-04] MEDS: LORATADINE 10 MG TAB PO SCH (09:00)
[2022-11-04] MEDS: GABAPENTIN 300 MG CAP PO SCH ×3 (09:00→21:10)
[2022-11-04] MEDS: CYCLOBENZAPRINE 5 MG TAB PO SCH ×3 (09:00→21:10)
--- NOTE | 2022-11-04 16:11 | P.PN ---
Subjective Progress Note Date: 11/04/22 Patient is 72-year-old female of hypothyroidism, hypertension, and history of migraine headaches who initially presented for elective minimally invasive PLIF. She had no immediate postoperative complications. She has suffered from a headache since 4 days prior to admission. This has been worsening since admission she about to get a caffine infusion. Patient seen and examined at bedside. Per nursing she had an episode of hypotension when standing with therapy that caused some nausea. She continues to have and headache and back pain with pain around her eyes. She had some nausea this morning. General: nontoxic,no distress , appears at stated age Derm: warm, dry Head: atraumatic, normocephalic, symmetric Eyes: EOMI, no lid lag, anicteric sclera Mouth: no lip lesion, mucus membranes moist Cardiovascular: S1S2 reg, no murmur, positive posterior tibial pulse bilateral, Lungs: CTA bilateral, no rhonchi, no rales , no accessory muscle use Ext: no gross muscle atrophy, no edema, no contractures Neuro: CN II-XI grossly intact, no focal neuro deficits Psych: Alert, oriented, appropriate affect Assessment/plan: 72-year-old female status post minimally invasive posterior lumbar interbody fusion management orthopedic surgery Constipation - add scheduled medications - continue prn medications Headache, resolved Hypertension, controlled -Follow blood pressure -Continue lisinopril Hypothyroidism -Synthroid Thank you for allowing us to participate in the care of this pleasant patient. Do not hesitate to contact us with questions. Someone can be reached from the [facility] hospitalist group all hours of the day at [phone] or via perfect serve. Objective - Vital Signs Vital signs: Vital Signs Temp 98.9 F 11/04/22 11:24 Pulse 84 11/04/22 11:24 Resp 18 11/04/22 11:24 BP 109/62 11/04/22 11:24 Pulse Ox 96 11/04/22 11:24 FiO2 Intake & Output 11/03/22 11/04/22 11/04/22 18:59 06:59 18:59 Other: Voiding Method Indwelling Catheter Indwelling Catheter Indwelling Catheter # Voids 1 1 1 - Labs CBC & Chem 7: 11/02/22 06:16
[2022-11-04] MEDS: SENNOSIDES 8.6 MG TAB PO SCH (16:32)
[2022-11-04] MEDS: ATORVASTATIN 10 MG TAB PO SCH (20:41)
[2022-11-04] MEDS: lisinopriL 20 MG TAB PO SCH (20:41)
[2022-11-05] MEDS: HYDROcodone/APAP 10-325MG 1 EACH TAB PO SCH ×7 (00:20→23:48)
[2022-11-05] MEDS: ACETAMINOPHEN TAB 325 MG TAB PO SCH ×5 (00:20→23:50)
[2022-11-05 04:07] VITALS: RESP 18
[2022-11-05] MEDS: LACTATED RINGERS 1,000 ML IV SCH (04:20)
[2022-11-05] MEDS: LEVOTHYROXINE 100 MCG TAB PO SCH (05:34)
[2022-11-05] MEDS: LORATADINE 10 MG TAB PO SCH (08:43)
[2022-11-05] MEDS: SENNOSIDES 8.6 MG TAB PO SCH (08:43)
[2022-11-05] MEDS: GABAPENTIN 300 MG CAP PO SCH ×3 (08:43→21:20)
[2022-11-05] MEDS: CYCLOBENZAPRINE 5 MG TAB PO SCH ×3 (08:43→21:20)
--- NOTE | 2022-11-05 09:40 | P.PN ---
Subjective Progress Note Date: 11/05/22 Principal diagnosis: 1. L4-5 and L5-S1 Grade I spondylolisthesis 2. L4-5 severe stenosis 3. L4-S1 spondylosis 4. Mechanical Low back pain 5. LE weakness with radiculopathy Patient seen at bedside this morning lying in the semirecumbent position. Patient says she is doing better this morning. Patient says she did get up yesterday and walk around the room in bed. Patient says she is still having some numbness/tingling and weakness in the right lower extremity at this time. Patient is hoping to go home tomorrow with health services. Patient mentions she is also having some low back pain near incisions. Patient says she has not had bowel movement yet. Patient says she has urinated daily since surgery. Patient denies any chest pain, fever, shortness breath, nausea, vomiting, change in vision. Objective - Vital Signs Vital signs: Vital Signs Temp 98.5 F 11/05/22 04:07 Pulse 90 11/05/22 04:07 Resp 18 11/05/22 04:07 BP 119/75 11/05/22 04:07 Pulse Ox 93 L 11/05/22 04:07 FiO2 Intake & Output 11/04/22 11/05/22 11/05/22 18:59 06:59 18:59 Intake Total 1000 Balance 1000 Intake: Oral 1000 Other: Voiding Method Indwelling Catheter Bedside Commode # Voids 1 3 - Exam Surgical dressings present over incisions. Incisions appear to be healing well at this time. Negative for any active drainage. Negative for any fluctuance/purulence. Plan for dressing change tomorrow before discharge home. Patient does have some generalized tenderness to palpation over incisions. Patient also does present with some weakness in the right lower extremity in resisted hip flexion/extension and knee flexion/extension. Patient does have good strength in the bilateral upper extremities on exam. Radial pulses intact, 2+ bilaterally. Cap refill under 3 seconds in digits of the upper extremities. Sensation is equal, symmetric, bilaterally intact throughout the upper and lower extremities on exam. Negative Homans bilaterally. - Labs CBC & Chem 7: 11/02/22 06:16 Assessment and Plan Assessment: 1. L4-5 and L5-S1 Grade I spondylolisthesis 2. L4-5 severe stenosis 3. L4-S1 spondylosis 4. Mechanical Low back pain 5. LE weakness with radiculopathy Postoperative day 4 status post L4-S1 MIS posterolateral interbody fusion Plan: 1. L4-5 and L5-S1 Grade I spondylolisthesis; L4-5 severe stenosis; L4-S1 spondylosis; Mechanical Low back pain; LE weakness with radiculopathy - surgery performed 11/01/2022 - L4-S1 MIS posterolateral interbody fusion. Patient stable at bedside this morning. Plan for discharge home with health services tomorrow, 11/06/2022. 2. Appreciate medical management 3. Pain management - [place]; Tylenol; Flexeril; gabapentin 4. GI prophylaxis - senna 5. DVT prophylaxis - mechanical 6. PT/OT - weightbearing as tolerated 7. Encourage incentive spirometer use 8. Discharge planning - discharge home with health services tomorrow 11/06/2022. Time with Patient: Less than 30
[2022-11-05] MEDS: lisinopriL 20 MG TAB PO SCH (20:00)
[2022-11-05] MEDS: ATORVASTATIN 10 MG TAB PO SCH (20:00)
[2022-11-06] MEDS: HYDROcodone/APAP 10-325MG 1 EACH TAB PO SCH ×2 (04:03→08:40)
[2022-11-06 04:07] VITALS: BP 114/73; PULSE 78; TEMP 97.7
[2022-11-06] MEDS: LACTATED RINGERS 1,000 ML IV SCH (04:08)
[2022-11-06] MEDS: ACETAMINOPHEN TAB 325 MG TAB PO SCH (06:13)
[2022-11-06] MEDS: LEVOTHYROXINE 100 MCG TAB PO SCH (06:15)
--- NOTE | 2022-11-06 08:25 | P.DS ---
Providers Date of admission: 11/02/22 07:16 Expected date of discharge: 11/06/22 Attending physician: Keith Kern DO Consults: 11/01/22 17:40 Consult Physician Routine Consulting Provider: Ana Ross Consult Reason/Comments: Medical Management s/p L4-S1 MIS TLIF Do you want consulting provider notified?: Yes Primary care physician: ALBIN LUCIANO DO Hospital Course: Date of admission: 11/01/2022 Date of discharge: 11/06/2022 Admission diagnosis: 1. L4-5 and L5-S1 Grade I spondylolisthesis 2. L4-5 severe stenosis 3. L4-S1 spondylosis 4. Mechanical Low back pain 5. LE weakness with radiculopathy Discharge diagnosis: Same Attending physician: Dr. Kern Surgical procedures: L4-S1 MIS posterolateral interbody fusion Brief history: Patient is a 72-year-old female with a history of L4-L5 stenosis; L4-S1 spondylosis; low back pain; lower extremity weakness and radiculopathy. At this point patient has failed conservative treatment measures and has opted to proceed with a elective L4-S1 MIS posterior lateral interbody fusion. Hospital course: Details of patient's surgery can be found in operative report. Patient tolerated the procedure well and was subsequently transported to orthopedic floor. Patient's orthopeidc and medical care was provided daily. Patient had daily laboratory tests performed for evaluation of overall blood counts. Patient had daily physical therapy to include strengthening range of motion as well as education with walker ambulation. Patient was treated with Xarelto for their postoperative DVT prophylaxis during their inpatient stay. Patient was noted to have a relatively uneventful postoperative course. Patient reported satisfactory pain control with oral pain medications by postoperative day 5. Patient showed satisfactory progress with physical therapy. Patient moved steadily through the program and had no difficulty meeting the goals by postoperative day 5. Given patient's otherwise satisfactory course and having met physical therapy goals, plan is to discharge patient with health services on postoperative day 5. Discharge condition/disposition: Patient will be discharged home with health services in stable condition. Discharge medications: Instructions are given on resumption of patient's normal daily medications per primary care recommendation, in addition patient will be prescribed Lyman; gabapentin; Flexeril; senna; Duricef. Spine Discharge and Recovery Instructions Date of Surgery: 11/01/2022 Diagnosis: 1. L4-5 and L5-S1 Grade I spondylolisthesis 2. L4-5 severe stenosis 3. L4-S1 spondylosis 4. Mechanical Low back pain 5. LE weakness with radiculopathy Procedure: L4-S1 MIS posterolateral interbody fusion Medications: See medication list All medication refills should be obtained through your primary care doctor or your clinic spine surgeon. Please discuss prescription refills at your follow up appointment. Do not call the hospital for medication refills. Dressing: Leave your dressing in place for a total of 5 days post operatively. Then you may remove your dressing and leave open to air. Keep the area clean and if not able to keep area clean, then cover with sterile gauze and tape. Showering: You may shower 3 days after your procedure allowing soap and water to run over incision. Do not scrub. Do not soak. Blot dry. Follow up: Please confirm a follow up appointment with your surgeon 3 weeks post operatively. Please make an appointment to follow up with your PCP in 1-2 weeks after surgery for evaluation 3 phase, 3-week plan POST OP WEEKS 1-3 1. Lifting/carrying/pushing/pulling limited to less than 5 pounds. 2. Do not sit for longer than 15 minutes at one time. Get up and walk around. Prolonged sitting is NOT advised. If you lay down, see if you can tolerate laying down on you front (belly side) 3. Walk for periods of 15 minutes = 1 mile but no longer; do it multiple times times each day. 4. Ice your low back after activity. POST OP WEEKS 3-6 1. Lifting limited to less than 20 pounds. 2. Do not sit for longer than 30 minutes at a time. Frequently change positions. Use a sit-to stand workstation or take frequent breaks from sitting if you have returned to work. 3. Walk for 30 minutes each day. If possible, do these three or more times a day POST OP WEEKS 6+ At your 6-week appointment we will give you a physical therapy referral to focus on a core stabilization and strengthening program. You should also work on leg & buttock strengthening, hamstring & quadriceps stretching, and continue a low impact aerobic activity program such as swimming, walking, or riding a stationary bicycle. During the initial 6 weeks after your surgery, you are at the highest risk of re-injuring your spine. You should generally avoid BLTs (bending, lifting and twisting combination motions) and follow the above guidelines to reduce the chance of reinjury. You can anticipate post op appointments in our office at approximately 3 weeks and 6 weeks after your surgery. INCISION CARE: If your incision is not draining you do NOT need to cover it with a dressing. Keep your incision clean, dry and intact. In most cases, we apply skin glue, keisha or sutures to the incision at the time of surgery. This will be like a crust or have the appearance of a scab and will fall off in time on its own. The stitches or keisha need to be removed at 3 weeks post op appointment. You may begin to shower 3 days after surgery (this allows the glue to gomez well). However, please avoid scrubbing the incision site or peeling off any of the skin glue. This will ensure optimal healing of your incision. Also, during this time avoid soaking the incision area in water - this includes swimming pools, hot tubs or baths. No ointments, lotions or oils on the incision until your surgeon allows. Leave keisha, sutures or glue in place. Neurological dysfunction that comes on suddenly can also be a sign of a stroke. Below some common symptoms of a stroke are listed: B - balance difficulty such as sudden onset walking or leaning to one side - NEW E - eye problem such as sudden double vision or trouble seeing on one side - NEW F - Facial weakness or numbness on one side - NEW A - Arm or leg weakness or numbness on one side - NEW S - Slurred speech or difficulty with word finding - NEW T - Time is BRAIN! Call 911 as soon as you recognize these symptoms Diet: Consume a regular diet rich in vegetables and lean protein such as chicken or fish. You should consume in a ratio of approximately 20% fats|40% carbohydrates|40%protein. Vegetables, sweet potatoes, brown rice or quinoa are examples of good carbohydrates. Chips, white bread, cookies and sweets/sugar are examples of bad carbohydrates. Limit your bad carbs, go wild with good carbs. "Life's Simple 7" Guidelines as per [place] [employer] These will help you reclaim your life after surgery and press worker helper in your recovery, keeping in mind your restrictions. (1) Get Active. Physical activity can help people lose weight, control high blood pressure and cholesterol, feel emotionally better, and sleep better. (2) Control Cholesterol. Avoid a diet high in saturated fat, trans fat, & cholesterol. Limit whole milk & cream, ice cream, butter, egg yolks, processed meats (like sausage and hot dogs), and fatty meats. Choose healthy foods that are low in saturated fat, trans fat and cholesterol which include: Fruits and vegetables, fiber rich grain products (like whole grain pasta and brown rice), lean meat such as chicken, fish, nuts, seeds, and legumes. (3) Eat Better. Eat small portions. Shop at the grocery with a list and do not stray from it. Tips for a healthy diet include: Limit sodium intake to less than 1500mg daily, avoid prepackaged, processed, and fast foods, choose a diet rich in fruits, vegetables, and whole grain, high fiber foods, and limit saturated & cholesterol in your diet. (4) Manage Blood Pressure. If you have high blood pressure, you should have a cuff at home so that you can check your blood pressure regularly. Be sure you have a good cuff. An arm one is generally better than a wrist one. Bring the cuff to a doctor's appointment to validate that the measurements that your cuff are taking are accurate. Take your blood pressure twice daily when you are sitting down and relaxing. Record the numbers in a log and bring this log with you to your doctors' appointments. (5) Lose Weight if your BMI is above 25. A healthy BMI is between 19-25. To calculate Your BMI, you may use a Standard BMI Calculator on the NIH BMI website: <www.nhlbi.nih.gov/guidelines/obesity/BMI/bmicalc.htm>. Weigh oneself daily. If you are overweight, set a goal to lose weight. A pound a week loss if needed is a good target. (6) Reduce Blood Sugar. Limit foods and liquids with "added sugars." (Added sugars include sucrose, fructose, glucose, maltose, dextrose, high fructose corn syrup, corn syrup, concentrated fruit juice and honey). (7) Stop Smoking. If you smoke, quitting smoking is one of the best things that you can do for your health. Smoking increases your risk of heart attack, stroke, and peripheral vascular disease, which is a build-up of plaque in your arteries. Please discard all the cigarettes and lighters in your house. Have a plan for what you will do when you have the urge to smoke. Direct and second- hand smoke shortens your life as well as the lives of your family, friends and others around you. For your health and the health of those around you, please consider quitting! Proper Bending Body Mechanics: Maintain a wide stance with one foot slightly in front of the other. Keep your back straight. Bend utilizing the strength in your hips and knees. Do not bend at the waist. Maintain the lifted object at your waist-level close to your body. Avoid lifting weight that causes immediately pain or pain anywhere in the body afterwards. Smoking/Nicotine If there was ever one thing that you could do to increase your overall health, decrease your risk of cardiovascular problems by about 39% the second you make the choice, it is to STOP SMOKING. Your body's most instant gratification is the second you stop smoking. We have all heard the studies, read the articles but it is true, smoking is extremely bad for your overall health, and moreover it is detrimental to your bone health. Nicotine, IN ANY FORM, kills bone cells, prevents your body from healing fractures, and significantly prolongs healing after surgery. In spine surgery specifically, it increases your risk of not healing your bones to create a fusion and increases your risk of having a revision surgery due to this up to 60%. I know it is hard. I know it feels impossible. But there are ways. Take control of your life. We are here to help you through it. And when you are ready, ask us and we can direct you to help if you desire. Use the START Plan to Quit Smoking (please visit the Helpguide.org website listed below for more information): S = Set a quit date. Choose a date within the next 2 weeks, so you have enough time to prepare without losing your motivation to quit. If you mainly smoke at work, quit on the weekend, so you have a few days to adjust to the change. T = Tell family, friends, and co-workers that you plan to quit. Let your friends and family in on your plan to quit smoking and tell them you need their support and encouragement to stop. Look for a quit nighat who wants to stop smoking as well. You can help each other get through the rough times. A = Anticipate and plan for the challenges you'll face while quitting. Most people who begin smoking again do so within the first 3 months. You can help yourself make it through by preparing ahead for common challenges, such as nicotine withdrawal and cigarette cravings. R = Remove cigarettes and other tobacco products from your home, car, and work. Throw away all your cigarettes (no emergency pack!), lighters, ashtrays, and matches. Wash your clothes and freshen up anything that smells like smoke. Shampoo your car, clean your drapes and carpet, and steam your furniture. T = Talk to your doctor about getting help to quit. Your doctor can prescribe medication to help with withdrawal and suggest other alternatives. If you can't see a doctor, you can get many products over the counter at your local pharmacy or grocery store, including the nicotine patch, nicotine lozenges, and nicotine gum. Resources for Quitting Smoking: <https://www.[place].gov/documents/[facility]/Quit_Tobacco_Resources_for_patients_313 480_7.pdf> Supplementation: Take recommended dosages of Vitamin D and Calcium to help fortify your bones and help them to heal. See your health maintenance packet for dosages and recommended levels. DVT/VTE prophylaxis: You will be given compression stockings from the hospital. Wear these daily for the first two weeks after surgery. You may take them off at night. You may be prescribed a medication to help thin your blood. Take this as directed. If you are not prescribed this medication, early and frequent ambulation has been shown to be the best prophylaxis to deep vein thrombosis and sequelae related to this event. Assessment: 1. L4-5 and L5-S1 Grade I spondylolisthesis 2. L4-5 severe stenosis 3. L4-S1 spondylosis 4. Mechanical Low back pain 5. LE weakness with radiculopathy Procedures: L4-S1 MIS posterolateral interbody fusion Patient Condition at Discharge: Good Plan - Discharge Summary Discharge Rx Participant: No New Discharge Prescriptions: New Gabapentin 300 mg PO TID #27 cap HYDROcodone/APAP 10-325MG [Lyman 10-325] 1 tab PO Q6HR PRN #28 tab PRN Reason: Pain Sennosides/Docusate Sodium [Senna Plus 8.6-50 mg Softgel] 1 each PO DAILY #20 cap cefaDROXiL [Duricef] 500 mg PO Q12HR 5 Days #10 cap Cyclobenzaprine [Flexeril] 5 mg PO TID #21 tablet Continue Levothyroxine Sodium [Synthroid] 100 mcg PO QAM Acetaminophen [Tylenol Extra Strength] 500 mg PO Q6H PRN PRN Reason: Pain lisinopriL [Zestril] 20 mg PO HS Atorvastatin [Lipitor] 10 mg PO HS No Action Aspirin 81 mg PO DAILY Ibuprofen [Advil] 200 - 400 mg PO Q6HR PRN PRN Reason: Pain Discharge Medication List Levothyroxine Sodium [Synthroid] 100 mcg PO QAM 09/24/14 [History] Acetaminophen [Tylenol Extra Strength] 500 mg PO Q6H PRN 04/27/22 [History] Aspirin 81 mg PO DAILY 04/27/22 [History] lisinopriL [Zestril] 20 mg PO HS 04/27/22 [History] Atorvastatin [Lipitor] 10 mg PO HS 07/11/22 [History] Ibuprofen [Advil] 200 - 400 mg PO Q6HR PRN 07/11/22 [History] Cyclobenzaprine [Flexeril] 5 mg PO TID #21 tablet 11/06/22 [Rx] Gabapentin 300 mg PO TID #27 cap 11/06/22 [Rx] HYDROcodone/APAP 10-325MG [Lyman 10-325] 1 tab PO Q6HR PRN #28 tab 11/06/22 [Rx] Sennosides/Docusate Sodium [Senna Plus 8.6-50 mg Softgel] 1 each PO DAILY #20 cap 11/06/22 [Rx] cefaDROXiL [Duricef] 500 mg PO Q12HR 5 Days #10 cap 11/06/22 [Rx] Follow up Appointment(s)/Referral(s): Keith Kern DO [Doctor of Osteopathic Medicine] - 2 Weeks Patient Instructions/Handouts: Lumbar Spinal Fusion (GEN) Activity/Diet/Wound Care/Special Instructions: Spine Discharge and Recovery Instructions Date of Surgery: 11/01/2022 Diagnosis: [1. L4-5 and L5-S1 Grade I spondylolisthesis 2. L4-5 severe stenosis 3. L4-S1 spondylosis 4. Mechanical Low back pain 5. LE weakness with radiculopathy] Procedure: [L4-S1 MIS posterolateral interbody fusion] Medications: See medication list All medication refills should be obtained through your primary care doctor or your clinic spine surgeon. Please discuss prescription refills at your follow up appointment. Do not call the hospital for medication refills. Dressing: Leave your dressing in place for a total of 5 days post operatively. Then you may remove your dressing and leave open to air. Keep the area clean and if not able to keep area clean, then cover with sterile gauze and tape. Showering: You may shower 3 days after your procedure allowing soap and water to run over incision. Do not scrub. Do not soak. Blot dry. Follow up: Please confirm a follow up appointment with your surgeon 3 weeks post operatively. Please make an appointment to follow up with your PCP in 1-2 weeks after surgery for evaluation 3 phase, 3-week plan POST OP WEEKS 1-3 1. Lifting/carrying/pushing/pulling limited to less than 5 pounds. 2. Do not sit for longer than 15 minutes at one time. Get up and walk around. Prolonged sitting is NOT advised. If you lay down, see if you can tolerate laying down on you front (belly side) 3. Walk for periods of 15 minutes = 1 mile but no longer; do it multiple times times each day. 4. Ice your low back after activity. POST OP WEEKS 3-6 1. Lifting limited to less than 20 pounds. 2. Do not sit for longer than 30 minutes at a time. Frequently change positions. Use a sit-to stand workstation or take frequent breaks from sitting if you have returned to work. 3. Walk for 30 minutes each day. If possible, do these three or more times a day POST OP WEEKS 6+ At your 6-week appointment we will give you a physical therapy referral to focus on a core stabilization and strengthening program. You should also work on leg & buttock strengthening, hamstring & quadriceps stretching, and continue a low impact aerobic activity program such as swimming, walking, or riding a stationary bicycle. During the initial 6 weeks after your surgery, you are at the highest risk of re-injuring your spine. You should generally avoid BLTs (bending, lifting and twisting combination motions) and follow the above guidelines to reduce the chance of reinjury. You can anticipate post op appointments in our office at approximately 3 weeks and 6 weeks after your surgery. INCISION CARE: If your incision is not draining you do NOT need to cover it with a dressing. Keep your incision clean, dry and intact. In most cases, we apply skin glue, keisha or sutures to the incision at the time of surgery. This will be like a crust or have the appearance of a scab and will fall off in time on its own. The stitches or keisha need to be removed at 3 weeks post op appointment. You may begin to shower 3 days after surgery (this allows the glue to gomez well). However, please avoid scrubbing the incision site or peeling off any of the skin glue. This will ensure optimal healing of your incision. Also, during this time avoid soaking the incision area in water - this includes swimming pools, hot tubs or baths. No ointments, lotions or oils on the incision until your surgeon allows. Leave keisha, sutures or glue in place. Neurological dysfunction that comes on suddenly can also be a sign of a stroke. Below some common symptoms of a stroke are listed: B - balance difficulty such as sudden onset walking or leaning to one side - NEW E - eye problem such as sudden double vision or trouble seeing on one side - NEW F - Facial weakness or numbness on one side - NEW A - Arm or leg weakness or numbness on one side - NEW S - Slurred speech or difficulty with word finding - NEW T - Time is BRAIN! Call 911 as soon as you recognize these symptoms Diet: Consume a regular diet rich in vegetables and lean protein such as chicken or fish. You should consume in a ratio of approximately 20% fats|40% carbohydrates|40%protein. Vegetables, sweet potatoes, brown rice or quinoa are examples of good carbohydrates. Chips, white bread, cookies and sweets/sugar are examples of bad carbohydrates. Limit your bad carbs, go wild with good carbs. "Life's Simple 7" Guidelines as per [place] [employer] These will help you reclaim your life after surgery and press worker helper in your recovery, keeping in mind your restrictions. (1) Get Active. Physical activity can help people lose weight, control high blood pressure and cholesterol, feel emotionally better, and sleep better. (2) Control Cholesterol. Avoid a diet high in saturated fat, trans fat, & cholesterol. Limit whole milk & cream, ice cream, butter, egg yolks, processed meats (like sausage and hot dogs), and fatty meats. Choose healthy foods that are low in saturated fat, trans fat and cholesterol which include: Fruits and vegetables, fiber rich grain products (like whole grain pasta and brown rice), lean meat such as chicken, fish, nuts, seeds, and legumes. (3) Eat Better. Eat small portions. Shop at the grocery with a list and do not stray from it. Tips for a healthy diet include: Limit sodium intake to less than 1500mg daily, avoid prepackaged, processed, and fast foods, choose a diet rich in fruits, vegetables, and whole grain, high fiber foods, and limit saturated & cholesterol in your diet. (4) Manage Blood Pressure. If you have high blood pressure, you should have a cuff at home so that you can check your blood pressure regularly. Be sure you have a good cuff. An arm one is generally better than a wrist one. Bring the cuff to a doctor's appointment to validate that the measurements that your cuff are taking are accurate. Take your blood pressure twice daily when you are sitting down and relaxing. Record the numbers in a log and bring this log with you to your doctors' appointments. (5) Lose Weight if your BMI is above 25. A healthy BMI is between 19-25. To calculate Your BMI, you may use a Standard BMI Calculator on the NIH BMI website: <www.nhlbi.nih.gov/guidelines/obesity/BMI/bmicalc.htm>. Weigh oneself daily. If you are overweight, set a goal to lose weight. A pound a week loss if needed is a good target. (6) Reduce Blood Sugar. Limit foods and liquids with "added sugars." (Added sugars include sucrose, fructose, glucose, maltose, dextrose, high fructose corn syrup, corn syrup, concentrated fruit juice and honey). (7) Stop Smoking. If you smoke, quitting smoking is one of the best things that you can do for your health. Smoking increases your risk of heart attack, stroke, and peripheral vascular disease, which is a build-up of plaque in your arteries. Please discard all the cigarettes and lighters in your house. Have a plan for what you will do when you have the urge to smoke. Direct and second- hand smoke shortens your life as well as the lives of your family, friends and others around you. For your health and the health of those around you, please consider quitting! Proper Bending Body Mechanics: Maintain a wide stance with one foot slightly in front of the other. Keep your back straight. Bend utilizing the strength in your hips and knees. Do not bend at the waist. Maintain the lifted object at your waist-level close to your body. Avoid lifting weight that causes immediately pain or pain anywhere in the body afterwards. Smoking/Nicotine If there was ever one thing that you could do to increase your overall health, decrease your risk of cardiovascular problems by about 39% the second you make the choice, it is to STOP SMOKING. Your body's most instant gratification is the second you stop smoking. We have all heard the studies, read the articles but it is true, smoking is extremely bad for your overall health, and moreover it is detrimental to your bone health. Nicotine, IN ANY FORM, kills bone cells, prevents your body from healing fractures, and significantly prolongs healing after surgery. In spine surgery specifically, it increases your risk of not healing your bones to create a fusion and increases your risk of having a revision surgery due to this up to 60%. I know it is hard. I know it feels impossible. But there are ways. Take control of your life. We are here to help you through it. And when you are ready, ask us and we can direct you to help if you desire. Use the START Plan to Quit Smoking (please visit the Helpguide.org website listed below for more information): S = Set a quit date. Choose a date within the next 2 weeks, so you have enough time to prepare without losing your motivation to quit. If you mainly smoke at work, quit on the weekend, so you have a few days to adjust to the change. T = Tell family, friends, and co-workers that you plan to quit. Let your friends and family in on your plan to quit smoking and tell them you need their support and encouragement to stop. Look for a quit nighat who wants to stop smoking as well. You can help each other get through the rough times. A = Anticipate and plan for the challenges you'll face while quitting. Most people who begin smoking again do so within the first 3 months. You can help yourself make it through by preparing ahead for common challenges, such as nicotine withdrawal and cigarette cravings. R = Remove cigarettes and other tobacco products from your home, car, and work. Throw away all your cigarettes (no emergency pack!), lighters, ashtrays, and matches. Wash your clothes and freshen up anything that smells like smoke. Shampoo your car, clean your drapes and carpet, and steam your furniture. T = Talk to your doctor about getting help to quit. Your doctor can prescribe medication to help with withdrawal and suggest other alternatives. If you can't see a doctor, you can get many products over the counter at your local pharmacy or grocery store, including the nicotine patch, nicotine lozenges, and nicotine gum. Resources for Quitting Smoking: <https://www.[place].gov/documents/[facility]/Quit_Tobacco_Resources_for_patients_313 480_7.pdf> Supplementation: Take recommended dosages of Vitamin D and Calcium to help fortify your bones and help them to heal. See your health maintenance packet for dosages and recommended levels. DVT/VTE prophylaxis: You will be given compression stockings from the hospital. Wear these daily for the first two weeks after surgery. You may take them off at night. You may be prescribed a medication to help thin your blood. Take this as directed. If you are not prescribed this medication, early and frequent ambulation has been shown to be the best prophylaxis to deep vein thrombosis and sequelae related to this even Discharge Disposition: HOME WITH HOME HEALTH SERVICES
[2022-11-06] MEDS: LORATADINE 10 MG TAB PO SCH (08:40)
[2022-11-06] MEDS: SENNOSIDES 8.6 MG TAB PO SCH (08:40)
[2022-11-06] MEDS: CYCLOBENZAPRINE 5 MG TAB PO SCH (08:41)
[2022-11-06] MEDS: GABAPENTIN 300 MG CAP PO SCH (08:42)
== END 2022-11-06 12:00 | disposition home health service (06) ==
LOC: OR 10:58 → 5NMEDONC 17:22 → OR 11-02 07:16 → 5NMEDONC 11-02 07:16
PROVIDERS: ADMIT Orthopaedic Surgery; ATTEND Orthopaedic Surgery
DX: M43.16 Spondylolisthesis, lumbar region (principal); M43.17 Spondylolisthesis, lumbosacral region; M48.061 Spinal stenosis, lumbar region without neurogenic claudication; M47.27 Other spondylosis with radiculopathy, lumbosacral region; M40.50 Lordosis, unspecified, site unspecified; M40.299 Other kyphosis, site unspecified; E03.9 Hypothyroidism, unspecified; I10 Essential (primary) hypertension; G43.909 Migraine, unspecified, not intractable, without status migrainosus; K59.00 Constipation, unspecified; E78.5 Hyperlipidemia, unspecified; Z85.828 Personal history of other malignant neoplasm of skin; Z79.82 Long term (current) use of aspirin; Z79.890 Hormone replacement therapy; Z79.899 Other long term (current) drug therapy
CPT/HCPCS: 97116; 97530; 97162; 86900; 86901; 85025; 86850; 72100; 72131; 22633; 22634; 22853 ×2; 22842; 20936; 20931; G0378 ×5; C1713; C1762; J2250; J0330; J2710; J0690 ×2; J2405; J3010; J1644; J1170 ×3; P9045; J2370; J2704; J2001

== ENCOUNTER → 2023-04-18 | Outpatient (CLI) | payer MEDICARE | END | disposition home or self-care (01) | LOC: LABPAT 08:18 | PROVIDERS: ATTEND Orthopaedic Surgery | DX: Z01.812 Encounter for preprocedural laboratory examination (principal); M48.061 Spinal stenosis, lumbar region without neurogenic claudication; Z22.322 Carrier or suspected carrier of Methicillin resistant Staphylococcus aureus | CPT/HCPCS: 87070 ==

== ENCOUNTER 2023-04-20 09:59 | Day surgery (SDC) | payer MEDICARE ==
[2023-04-18 11:49] VITALS: BMI 31.6
--- NOTE | 2023-04-20 08:22 | P.HPOR ---
History of Present Illness H&P Date: 03/22/23 .D:Date: 03/22/23 : 05:03pm .T:Title: [facility] Date of :[birth year] R14 Allergies: Age: 72 year Height: 5'7" Weight: 220 lbs BMI: 34.46 kg/m2 Occupation: Retired Teacher VAS: 2 CHIEF COMPLAINT: S/P lumbar (L4-S1) MIS Transforaminal Lumbar Interbody Fusion DOI:Chronic DOS:11/01/22 Post Op Week: 19 weeks SUBJECTIVE: Ms. Rosen returns to the office for a post-operative evaluation following their S/P lumbar (L4-S1) MIS Transforaminal Lumbar Interbody Fusion. Patient reports no changes to her symptoms since her last appointment besides an increase in pain from the hip to knee in the morning when getting up. Ms. Rosen notes that their symptoms are exacerbated with prolonged standing and ambulation. For pain the patient has been taking Aspirin, Motrin, Tylenol, Flexeril, Gabapentin, and Hermon. Patient is having mild sleep disturbances as well. Otherwise the patient is very happy with the progress they have made and have no acute concerns at this time. Patient denies any f/c/sob/cp, no incision concerns, no bladder or bowel retention/incontinence, no perineal numbness/tingling, and ambulates independently. HPI: Ms. Rosen presents to the office for a post-operative evaluation following their S/P lumbar (L4-S1) MIS Transforaminal Lumbar Interbody Fusion. Patient reports decreasing lumbar pain since the time of their procedure but does note numbness in left lower extremity and left foot. Ms. Rosen notes that their symptoms are exacerbated with prolonged standing, but this is well controlled with gabapentin, aspirin and tylenol. Patient also completed a medrol dose sindy with good relief. Patient is having mild sleep disturbances as well. Otherwise the patient is very happy with the progress they have made and have no acute concerns at this time. Patient denies any f/c/sob/cp, no incision concerns, no bladder or bowel retention/incontinence, no perineal numbness/tingling, and ambulates independently. Social History: Smoking: never a smoker P3 Alcohol: occasional alcohol P3 Family History: Reviewed, see appropriate section of the chart for details. P2 Past Medical History: Reviewed, see appropriate section of the chart for details. P1 Current Medications: Rx: aspirin 81 mg tablet,delayed release Ref: 0 Rx: levothyroxine 100 mcg capsule Ref: 0 Rx: lisinopriL 20 mg tablet Ref: 0 Rx: Motrin Ref: 0 Rx: TylenoL Ref: 0 Rx: cyclobenzaprine 5 mg tablet Ref: 0 Rx: gabapentin 300 mg capsule Ref: 0 Rx: HYDROcodone 10 mg-acetaminophen 325 mg tablet Ref: 0 Rx: gabapentin 600 mg tablet Ref: 0 Rx: methylPREDNISolone 4 mg tablets in a dose pack Ref: 0 PHYSICAL EXAM: -Patient is alert and oriented 3 appears well-nourished well-hydrated is in no acute distress. They do not appear septic. -On exam the patient has no tenderness to palpation of their thoracic or lumbar spine. There is no edema or ballottement sign. -Upper extremities show 5/5 strength in all major muscle groups. -Lower extremities with 5 out of 5 strength in all major muscle groups -There is FROM that is painless of the b/l UE and LE in all major joints. -They are intact to light touch sensation in L2 to S1 nerve distribution as well as the C5-T1 distribution. -DTRs 2/4 all upper and lower -Patient has palpable distal pulses in all four extremities -Compartments are soft and compressible. -Neg Corrigan's -No Clonus -Neg Babinski -Neg Shelly's -No tensioning signs. -Cranial nerves II through XII are grossly intact. -Overall alignment is well-maintained in the sagittal coronal planes. Surgical incision: Looks good, no sign of any infection, no drainage, EEE, edema, or ecchymosis. No fevers or chills. RADIOGRAPHS XRay taken on 02/08/23 in office of [facility] Spine: Compared to previous films no interval changes seen in hardware, alignment, rotation. Everything remains stable. CT Myelogram taken on 03/16/23 of [facility]:images are reviewed with the patient.this does demonstrate some continued L4-L5 stenosis centrally and bilateral foraminal. There is scar tissue buildup noted around the nerve on the left-hand side. Hardware appears to be in good position without be evidence of dislocation loosening fracture or translation. No other severe changes noted. ASSESSMENT 1. L4-5 stenosis 2. S/P lumbar (L4-S1) MIS Transforaminal Lumbar Interbody Fusion PLAN: All options were reviewed today, we decided the best course of action would be: -Advised patient to continue with supplements, health maintenance, and home exercise programs. Patient expressed understanding and will continue with these modalities. -I discussed treatment options with the patient, including operative and non- operative options, and they have elected to proceed with the following surgical procedure: Lumbar L4-5 Revision Decompression The indications, risks, benefits, and alternatives to surgery were discussed with the patient and family at length. Specifically (but not limited to) the risks of infection, stiffness, recurrence of symptoms, need for revision surgery, local numbness, neurovascular injury, and blood clots were discussed. The patient's questions were answered. The decision to proceed was made. Consent will be obtained for the procedure. -No lifting, bending, twisting no lifting greater than 30 lbs -Ambulate daily -Take pain medications and post op medications as needed and as directed -Ice and rest for pain and swelling control. Spine Surgery Risk Review Ms. Rosen is presenting for evaluation of Lumbar pain following her L4-S1 TLIF . It was my pleasure to have seen and examined Ms. Rosen. In our visit today we have had a chance to go over subjective complaints, physical examination findings and treatments including the natural course history without intervention and various interventional options. The patients imaging demonstrates: XRay taken on 02/08/23 in office of [facility]: Compared to previous films no interval changes seen in hardware, alignment, rotation. Everything remains stable. CT Myelogram taken on 03/16/23 of [facility]:images are reviewed with the patient.this does demonstrate some continued L4-L5 stenosis centrally and bilateral foraminal. There is scar tissue buildup noted around the nerve on the left-hand side. Hardware appears to be in good position without be evidence of dislocation loosening fracture or translation. No other severe changes noted. On physical exam, Ms. Rosen demonstrates: L4-5 stenosis, as well as numbness throughout the lower left extremity into the foot. I have explained to the patient that as their condition progresses it will cause further neurological deficits and eventual paralysis. Based on the patients imaging, physical exam, and the rapid progression and disabling nature of their symptoms, at this time I recommend surgery in the form of a: Lumbar L4-5 Revision Decompression I discussed the risk and benefits of this procedure at length with Ms. Dunlap. The patient and their significant other agreed to considered pursuing the procedure abovementioned. Prior to surgery, she should follow up with her PCP (Cardio, ID, IM etc) for clearance. Questions were invited and answered, and the patient wishes to proceed as outlined below. Currently, I am recommendin. Lumbar L4-5 Revision Decompression 2.Follow up with PCP for surgical clearance 3.Review of surgical risks and benefits as well as an educational packet on the proposed surgical procedure. Risks: All surgical procedures come with inherent risks, including those related to positioning, anesthesia, intraoperative findings, and postoperative complications. It is important to understand that surgery does not come with any guarantee of a successful outcome as complications and adverse events are always possible. The patient was given a handout in office today discussing the surgical procedure and risks associated with the intervention, both of which were discussed with the patient. These risks include but are not limited to the following: * Experiencing same, different or even worse symptoms in back, neck, arms, or legs compared to before surgery. Requiring further surgery or other forms of treatment presently or at some time in the future at same or other levels of the intended spine surgery. On an extreme but fortunately relatively rare basis severe complication such as blindness, stroke, heart attack, temporary and/or permanent nerve injury, paralysis, coma, or may occur, sometimes without known explanation. Surgical complications may include but are not limited to risk of infection, fluid accumulation in the surgical dissection site, including a seroma or hematoma, that requires additional surgery, wound drainage, bleeding, new numbness or weakness, vision changes/loss, spinal fluid leakage, non-healing and/or infected incision, headaches, difficulty or inability to swallow, hoarseness, hemopneumothorax, pneumothorax, impotence, retrograde ejaculation, vaginal dryness; injury to nerves, spinal cord, blood vessels, lymphatics or other vital organs (i.e., bowel injury, injury to the great vessels); heterotopic bone formation; complications related to the hardware such as screws, rods, cages including misplaced hardware, device failure, instrumentation at the wrong spine level, hardware fracture/breakage, or hardware loosening; vertebral failure of the spinal column above or below the newly placed hardware; retained surgical instrumentations or devices and the need for further surgery. * Medical risks of the planned spine surgery include but are not limited to generalized Infections to the whole body or local areas outside of the surgical site (sepsis), heart attack, bleeding, anaphylaxis, meningitis, seizure, epilepsy, hearing loss, burn laird, laceration of the head or other areas of the body, bruising, hypersensitivity of the skin, bladder over distension; allergic reaction; shoulder injury related to positioning; fat, blood and air clots to other areas of the body like heart, lungs, brain; failure of internal organs such as lungs, kidneys, liver and excessive bleeding. If blood transfusions are necessary, note that transfusions may cause intolerance reactions such as anaphylaxis or other complex reactions. Despite best efforts, the results of spine surgery might not heal in terms of bone, soft tissues such as skin, fascia, ligaments, and joints. Additionally, in order to achieve best possible results, spine surgery may be carried out beyond the initially planned levels and involve decompression, fusion including insertion of hardware at levels other than the original intended area of s urgical interest change some portions of the procedure in order to ensure the best possible outcomes. With spine surgery and spinal fusion, there are different off label uses of instrumentation (devices, implants and hardware) as well as biological substances (bone morphogenic proteins, demineralized bone matrix) as well as using extra bone from allograft sources (i.e. cadaver bone) or autograft (iliac crest bone, ribs, or the spine itself). The patient has been given information about these practices and their inherent risks and benefits. [facility] is an educational center that serves as a training facility for neurosurgical and orthopedic CARDIAC NURSE SPECIALIST and Nursing students. Physician assistants are medically trained surgical providers who function in the outpatient, inpatient, and operating room setting under the direct supervision of the attending surgeon. [facility] has multiple operating rooms with single and overlapping rooms running daily. They currently function under the required guidelines as produced by the [facility] with regards to the overlapping rooms and will continue to comply with changes to this policy as they occur. The requirements include and are complied with as follows: (1) the critical portions of the overlapping rooms will not occur at the same time, (2) the attending physician will be physically present during the critical portions of the procedure and immediately available during the entire case, and (3) a back-up attending is designated should the primary attending not be immediately available. The patient has had a chance to review all the listed information, has been given print outs detailing this information, and has had all his/her questions answered to their satisfaction. It was my pleasure to have seen and examined Ms. Rosen. In our visit today we have had a chance to go over my understanding of our patient's current condition, the natural course history without intervention and various intervent ional options. Questions were invited and answered, and the patient wishes to proceed as outlined above. I have seen and examined the patient for 25 minutes and we have spent more than 50% of the time in repeat and detailed counseling about the patient's condition, its natural course history with out and as much as can be predicted with surgery and re-review of various surgical treatment options. In conclusion, Ms. Rosen and her spouse requested we proceed with the above suggested surgery and are willing to accept risks and limitations of the sug gested surgery as nature of the disease process and our best attempts at treatment for the condition. Thank you again for allowing us to be part of your patient's care. Please don't hesitate to contact me if you have any further questions. Signed and authenticated by: [employer] P:\\\\ppart\\\\[id number]\\\\[id number] \\d Keith Eckert [facility] Minimally Invasive Spine Surgery [address] [place] [id number] Follow- up: 1 week Pre-Op Patient Education: (Informational booklet, instructions, etc) given at today's appointment: Yes .ED:Patient Education: Y Medications Reviewed: YES Attestation: In our visit today Ms. Rosen and I have had a chance to go over my understanding of the patient's current condition, the natural course history without intervention and various interventional options. Questions were invited and answered, and the patient wishes to proceed as outlined above. I will be sure to keep you updated afterMsMonica Rosen returns here for further follow-up. Thank you again for your referral. Please do not hesitate to contact me if you have any further questions. Signed and authenticated by: Keith Eckert [facility] [address] [place] [address] This message is confidential, intended only for the named recipient(s) and may contain information that is privileged or exempt from disclosure under applicable law. If you are not the intended recipient(s), you are notified that the dissemination, distribution or copying of this information is strictly prohibited. If you received this message in error, please notify the sender then delete this message. CC: [facility] # SIGNED BY Keith Kern (GOO)04/03/2023 09:23AM Past Medical History Past Medical History: Cancer, Hyperlipidemia, Hypertension, Thyroid Disorder Additional Past Medical History / Comment(s): hx migraines, arthritis, skin cancer HAD COVID IN MARCH 2022., STARTING OF CATARACTS History of Any Multi-Drug Resistant Organisms: None Reported Past Surgical History: Back Surgery, Bladder Surgery, Orthopedic Surgery Additional Past Surgical History / Comment(s): D&C,. joseph foot surGERY FOR PLANTAR FASCIATIS, PAIN CLINIC PROCEDURE, BILAT KNEE SCOPES, RT SOFIA, COLONOSCOPY Past Anesthesia/Blood Transfusion Reactions: Family History of Problems w/ Anesthesia Additional Past Anesthesia/Blood Transfusion Reaction / Comment(s): mother- cold and shaky Smoking Status: Never smoker - Past Family History Mother Family Medical History: Cancer, CVA/TIA, Deep Vein Thrombosis (DVT) Additional Family Medical History / Comment(s): ovarian cancer Father Family Medical History: Congestive Heart Failure (CHF) Medications and Allergies Home Medications Medication Instructions Recorded Confirmed Type Levothyroxine Sodium [Synthroid] 100 mcg PO QAM 09/24/14 04/18/23 History Aspirin 81 mg PO DAILY 04/27/22 04/18/23 History lisinopriL [Zestril] 20 mg PO HS 04/27/22 04/18/23 History Atorvastatin [Lipitor] 10 mg PO DAILY 07/11/22 04/18/23 History Cetirizine HCl [Zyrtec] 10 mg PO DAILY 04/18/23 04/18/23 History Allergies Allergy/AdvReac Type Severity Reaction Status Date / Time Antihistamines - Alkylamine AdvReac shelia, Verified 04/18/23 11:35 lightheaded Physical Examination Osteopathic Statement: *. No significant issues noted on an osteopathic structural exam other than those noted in the History and Physical/Consult.
[~2023-04-20 09:59] MED LIST changes: +HYDROmorphone 0.5 MG/0.5 ML SYRINGE IVP PRN; +MIDAZOLAM 2 MG/2 ML VIAL IV PRN; -ONDANSETRON 4 MG/2 ML VIAL IVP ONE
[2023-04-20] MEDS: LACTATED RINGERS 1,000 ML IV SCH (11:06)
[2023-04-20] MEDS ORDERED: TRANEXAMIC ACID IN NACL,ISO-OS 1,000 MG/100 ML BAG ONE (12:36)
[2023-04-20] MEDS ORDERED: PHENYLEPHRINE-0.9% NACL SYG 1,000 MCG/10 ML SYRINGE ONE (12:36)
[2023-04-20] MEDS ORDERED: PROPOFOL 10 MG/ML 20 ML VIAL IV ONE (12:36)
[2023-04-20] MEDS ORDERED: SUCCINYLCHOLINE CHLORIDE 200 MG/10 ML VIAL IV ONE (12:36)
[2023-04-20] MEDS ORDERED: NEOSTIGMINE 1 MG/ML 10 ML VIAL ONE (12:36)
[2023-04-20] MEDS ORDERED: fentaNYL (PF) 50 MCG/ML 2 ML AMP ONE (12:36)
[2023-04-20] MEDS ORDERED: ePHEDrine 50 MG/ML 1 ML VIAL ONE (12:36)
[2023-04-20] MEDS ORDERED: GLYCOPYRROLATE 0.2 MG/ML 2 ML VIAL ONE (12:36)
[2023-04-20] MEDS ORDERED: ROCURONIUM 10 MG/ML (5 ML VIAL) IV ONE (12:36)
[2023-04-20] MEDS ORDERED: MIDAZOLAM 2 MG/2 ML VIAL ONE (12:36)
[2023-04-20] MEDS ORDERED: LIDOCAINE 2% INJ 20 MG/ML (2 ML VIAL) ONE (12:36)
[2023-04-20] MEDS ORDERED: GELATIN SPONGE,ABSORB (LARGE) 1 EACH SPONGE MISCELLANE ONE (13:20)
[2023-04-20] MEDS ORDERED: THROMBIN (BOVINE) 5,000 UNIT VIAL MISCELLANE ONE (13:20)
[2023-04-20] MEDS ORDERED: ceFAZolin 3,000 MG in SODIUM CHLORIDE 0.9% IRRIGATIO 3,000 ML IRRIGATION ONE (13:43)
[2023-04-20] MEDS ORDERED: GENTAMICIN 80 MG in SODIUM CHLORIDE 0.9% IRRIGATIO 3,000 ML IRRIGATION ONE (13:44)
[2023-04-20] MEDS ORDERED: VANCOMYCIN 1,000 MG VIAL MISCELLANE ONE (14:28)
--- NOTE | 2023-04-20 14:45 | XR ---
EXAM TYPE: LUMBAR SPINE X RAY SERIES COMPARISON: NONE HISTORY: Lumbar laminectomy TECHNIQUE: 4 views are submitted. FINDINGS: Limited resolution intraoperative images demonstrating postsurgical changes which appear in near noman omic alignment and anterolisthesis of L4 vertebral IMPRESSION: 1. Intraoperative images..
[2023-04-20] MEDS ORDERED: bisacodyL 10 MG SUPP RECTAL PRN (14:55)
[2023-04-20] MEDS ORDERED: HYDROmorphone 0.5 MG/0.5 ML SYRINGE IVP PRN (14:55)
[2023-04-20] MEDS ORDERED: HYDROcodone/APAP 5-325MG 1 EACH TAB PO PRN (14:55)
[2023-04-20] MEDS ORDERED: ONDANSETRON 4 MG/2 ML VIAL IVP PRN (14:55)
[2023-04-20] MEDS ORDERED: HYDROmorphone 1 MG/ML 1 ML SYRINGE IVP PRN (14:55)
[2023-04-20] MEDS ORDERED: MAG HYDROX/AL HYDROX/SIMETH 30 ML CUP PO PRN (14:55)
[2023-04-20] MEDS ORDERED: CYCLOBENZAPRINE 5 MG TAB PO PRN (14:55)
[2023-04-20] MEDS ORDERED: SENNOSIDES-DOCUSATE SODIUM 1 EACH TAB PO PRN (14:55)
[2023-04-20] MEDS ORDERED: HYDROcodone/APAP 10-325MG 1 EACH TAB PO PRN (14:55)
[2023-04-20] MEDS ORDERED: NA PHOS,M-B/NA PHOS,DI-BA 133 ML ENEMA RECTAL PRN (14:55)
--- NOTE | 2023-04-20 15:10 | FL ---
EXAMINATION TYPE: FL guidance operating room DATE OF EXAM: 04/20/2023 HISTORY: Fluoroscopy time Total dose area product (DAP) in uGy*m?, mGy*cm? (or similar): 2.8187 IMPRESSION: 1. Fluoroscopy time.
[2023-04-20] MEDS ORDERED: SODIUM CHLORIDE 0.9% 1,000 ML IV SCH (15:15)
--- NOTE | 2023-04-20 18:02 | P.CONS ---
History of Present Illness - Reason for Consult Consult date: 04/20/23 - Chief Complaint medical management - History of Present Illness 72-year-old woman with medical history of hypertension, hypothyroidism, hyperlipidemia who is status post L4 to S1 PLIF in October 2022 who presented to the hospital for L4 to 5 revision decompression. Medicine was consulted for medical management. Patient has no complaints at this time, reports that her pain is well-controlled. On evaluation, patient was afebrile, 143/72, heart rate 57, 100% on 2 L nasal cannula. No lab work to review, no imaging to review. All Systems reviewed and pertinent positives and negatives noted in HPI, all other symptoms are negative Gen: in no apparent distress, resting comfortably in bed Eyes: PERRL, no scleral injection or icterus HENT: normocephalic, atraumatic, good hearing acuity, moist mucous membranes Neck: no tracheal deviation, full range of motion Resp: good air exchange, breathing comfortably with no accessory muscle use, no tactile fremitus CVS: good distal perfusion x 4, no pitting edema GI: soft, NTTP, ND, no hepatosplenomegaly : no suprapubic tenderness, no CVAT, metcalf catheter not present MSK: no clubbing, no cyanosis, no noted contractures of extremities Skin: no noted rashes, petechiae; temperature of skin is appropriate Neuro: moving all extremities without signs of weakness, CN II-XII intact Psych: cooperative, euthymic mood, insight and judgment intact Assessment: Status post L4 to 5 revision decompression surgery Hypertension Hypothyroidism Hyperlipidemia Plan: Vital signs reviewed and noted in the HPI Patient's lisinopril was resumed Continue to hold patient's aspirin Resume patient's levothyroxine Past Medical History Past Medical History: Cancer, Hyperlipidemia, Hypertension, Thyroid Disorder Additional Past Medical History / Comment(s): hx migraines, arthritis, skin cancer HAD COVID IN MARCH 2022., STARTING OF CATARACTS History of Any Multi-Drug Resistant Organisms: None Reported Past Surgical History: Back Surgery, Bladder Surgery, Orthopedic Surgery Additional Past Surgical History / Comment(s): D&C,. joseph foot surGERY FOR PLANTAR FASCIATIS, PAIN CLINIC PROCEDURE, BILAT KNEE SCOPES, RT SOFIA, COLONOSCOPY Past Anesthesia/Blood Transfusion Reactions: Family History of Problems w/ Anesthesia Additional Past Anesthesia/Blood Transfusion Reaction / Comm: mother- cold and shaky Smoking Status: Never smoker - Past Family History Mother Family Medical History: Cancer, CVA/TIA, Deep Vein Thrombosis (DVT) Additional Family Medical History / Comment(s): ovarian cancer Father Family Medical History: Congestive Heart Failure (CHF) Medications and Allergies Home Medications Medication Instructions Recorded Confirmed Type Levothyroxine Sodium [Synthroid] 100 mcg PO QAM 09/24/14 04/20/23 History Aspirin 81 mg PO DAILY 04/27/22 04/20/23 History lisinopriL [Zestril] 20 mg PO HS 04/27/22 04/20/23 History Atorvastatin [Lipitor] 10 mg PO DAILY 07/11/22 04/20/23 History Cetirizine HCl [Zyrtec] 10 mg PO DAILY 04/18/23 04/20/23 History Allergies Allergy/AdvReac Type Severity Reaction Status Date / Time Antihistamines - Alkylamine AdvReac shelia, Verified 04/20/23 10:28 lightheaded Physical Exam Osteopathic Statement: *. No significant issues noted on an osteopathic structural exam other than those noted in the History and Physical/Consult. Vitals: Vital Signs Temp Pulse Pulse Resp BP BP Pulse Ox 04/20/23 16:15 53 L 16 145/68 100 04/20/23 16:00 63 16 142/68 100 04/20/23 15:45 56 L 16 144/66 100 04/20/23 15:30 76 16 139/63 96 04/20/23 15:15 75 14 145/66 99 04/20/23 15:00 97.2 F L 85 14 150/68 99 04/20/23 10:42 97.8 F 72 18 185/77 99 Intake and Output 04/20/23 04/20/23 04/20/23 06:59 14:59 22:59 Intake Total 1552 200 Output Total 500 Balance 1052 200 Intake: IV 1552 200 Output: Urine 450 Estimated Blood Loss 50 Other: Weight 97.1 kg
[2023-04-20] MEDS ORDERED: lisinopriL 20 MG TAB PO SCH (21:00)
[2023-04-21] MEDS ORDERED: ACETAMINOPHEN TAB 325 MG TAB PO PRN (01:38)
[2023-04-21 06:12] LABS: Basophils % (A) 0 %; Eosinophils # (A) 0.1 k/uL (0-0.7); Eosinophils % (A) 2 %; HGB 12.2 gm/dL (11.4-16.0); Lymphocytes # (A) 1.1 k/uL (1.0-4.8); Lymphocytes % (A) 19 %; MCH 30.5 pg (25.0-35.0); MCHC 34.9 g/dL (31.0-37.0); MCV 87.4 fL (80.0-100.0); Mean Platelet Volume 7.6; Monocytes # (A) 0.3 k/uL (0-1.0); Monocytes % (A) 5 %; Neutrophils # (A) 4.3 k/uL (1.3-7.7); Neutrophils % (A) 73 %; Platelet Count 181 k/uL (150-450); RBC 4.01 m/uL (3.80-5.40); RDW 13.9 % (11.5-15.5)
[2023-04-21 06:19] LABS: African American GFR (CKD) >90 (>60 ml/min/1.73 sqM); Anion Gap 6 mmol/L; Blood Urea Nitrogen 9 mg/dL (7-17); Calcium 8.4 mg/dL (8.4-10.2); Carbon Dioxide 26 mmol/L (22-30); Chloride 104 mmol/L (98-107); Glucose 109 mg/dL (74-99); Non-African American GFR(CKD) >90 (>60 ml/min/1.73 sqM); Potassium 3.8 mmol/L (3.5-5.1); Sodium 136 mmol/L (137-145)
[2023-04-21] MEDS ORDERED: LEVOTHYROXINE 100 MCG TAB PO SCH (06:30)
[2023-04-21 07:44] VITALS: BP 128/78; PULSE 82; RESP 18; TEMP 98.1
--- NOTE | 2023-04-21 08:33 | P.PN ---
Subjective Progress Note Date: 04/21/23 Principal diagnosis: s/p L4-S1 MIS TLIF Lumbar stenosis Left lower extremity radiculopathy Patient seen and examined this morning. She is resting comfortably in bed. Patient reports her pain is managed on current regimen. She does report a constant headache that she believes is from anesthesia. Medications will be ordered. Patient states that she has been up multiple times throughout the night ambulating independently to the restroom without any difficulty. Surgical dressing to the lumbar region is saturated with sangeous output. ART drain present with minimal output. Dressing has been changed with loose gauze and ABD dressing and pressure tape applied, drain has been removed. Patient states she continues to have radicular symptoms into left lower extremity. Educated patient that the symptoms may resolve with time. She verbalizes understanding. Patient states she feels comfortable with discharge later today. She has been afebrile, denies nausea/vomiting or chest pain. Objective - Vital Signs Vital signs: Vital Signs Temp 98.1 F 04/21/23 07:26 Pulse 82 04/21/23 07:26 Resp 18 04/21/23 07:26 BP 128/78 04/21/23 07:26 Pulse Ox 97 04/21/23 07:26 FiO2 Intake & Output 04/20/23 04/21/23 04/21/23 18:59 06:59 18:59 Intake Total 1752 Output Total 500 Balance 1252 Weight 97.1 kg Intake: IV 1752 Output: Urine 450 Estimated Blood Loss 50 Other: # Voids 0 3 - Exam Physical Examination General: The patient is awake and alert, in no acute distress Skin: Skin is warm and dry with no obvious rashes or lesions. Surgical incision to the lumbar region, Dressing changed this morning and ART drain removed. Eye: Pupils are equal, round and reactive to light, extra-ocular movements are intact; there is normal conjunctiva bilaterally. Neck: The neck is supple, there is no tenderness and ROM intact. Cardiovascular: There is a regular rate and rhythm. No murmur, rub or gallop is appreciated. Respiratory: Lungs are clear to auscultation, respirations are non-labored, breath sounds are equal. Gastrointestinal: Soft, non-distended, non-tender abdomen. Back: There is no tenderness to palpation in the midline, paralumbar, parathoracic or buttocks region. There is no obvious deformity . Musculoskeletal: ROM limited secondary to pain and stiffness from surgical procedure. Muscle strength in all major muscle groups of bilateral upper extremities 5/5, bilateral lower extremities 5/5. Neurological: CN 2-12 intact. There are no obvious motor or sensory deficits. Movement and coordination equal and intact. Sensory exam to light touch intact C5-T1 and intact from L2-S1. Reflexes 2/4 in bilateral upper and lower extremities. Negative Hoffmans, babinski, and clonus signs. Psychiatric: Cooperative, appropriate mood & affect, normal judgment. - Labs CBC & Chem 7: 04/21/23 05:41 04/21/23 05:41 Labs: Abnormal Lab Results - Last 24 Hours (Table) 04/21/23 Range/Units 05:41 Sodium 136 L (137-145) mmol/L Glucose 109 H (74-99) mg/dL Assessment and Plan Assessment: Postop day 1: L4-S1 laminectomy with decompression s/p L4-S1 MIS TLIF Lumbar stenosis Left lower extremity radiculopathy Plan: -Appreciate construction safety consultant and team management. -Activity: Ambulate QID, OOB all meals, up and about, limit lifting bending twisting to less than 5 lbs. Use walker or cane if needed for stability. -Daily PT/OT, increase ambulation strength and balance. -Pain control: Adequate at this time -Meds: reviewed -GI ppx: senna, Miralax -DVT PPX: SCDs/TEDS -Hygiene: Shower today. Maintain dressing clean and dry. Meticulous cleaning after BMs away from the incision site. -Encourage IS 10x/hr -Dispo: Anticipate discharge home later today with homecare *I reviewed and discussed this case with my attending Dr. Kern, whom has reviewed this chart and films and is in agreement with assessment and plan of care as outlined above. I have personally seen and examined the patient, performed the documentation and the assessment and plan as written. Number of minutes spent on the visit: 20m.
[2023-04-21] MEDS ORDERED: BUTALB/APAP/CAFF 50-325-40MG TAB PO STA (08:39)
[2023-04-21] MEDS ORDERED: SENNOSIDES-DOCUSATE SODIUM 1 EACH TAB PO SCH (09:00)
[2023-04-21] MEDS ORDERED: ATORVASTATIN 10 MG TAB PO SCH (09:00)
[2023-04-21] MEDS ORDERED: LORATADINE 10 MG TAB PO SCH (09:00)
--- NOTE | 2023-04-21 10:38 | P.PN ---
Subjective Progress Note Date: 04/21/23 No new complaints today. Gen: in no apparent distress, resting comfortably in bed Eyes: PERRL, no scleral injection or icterus HENT: normocephalic, atraumatic, good hearing acuity, moist mucous membranes Neck: no tracheal deviation, full range of motion Resp: good air exchange, breathing comfortably with no accessory muscle use, no tactile fremitus CVS: good distal perfusion x 4, no pitting edema GI: soft, NTTP, ND, no hepatosplenomegaly : no suprapubic tenderness, no CVAT, metcalf catheter not present MSK: no clubbing, no cyanosis, no noted contractures of extremities Skin: no noted rashes, petechiae; temperature of skin is appropriate Neuro: moving all extremities without signs of weakness, CN II-XII intact Psych: cooperative, euthymic mood, insight and judgment intact Assessment: Status post L4 to 5 revision decompression surgery Hypertension Hypothyroidism Hyperlipidemia Plan: Vital signs reviewed and noted in the HPI Patient's lisinopril was resumed Continue to hold patient's aspirin Resume patient's levothyroxine Objective - Vital Signs Vital signs: Vital Signs Temp 98.1 F 04/21/23 07:26 Pulse 82 04/21/23 07:26 Resp 18 04/21/23 07:26 BP 128/78 04/21/23 07:26 Pulse Ox 97 04/21/23 07:26 FiO2 Intake & Output 04/20/23 04/21/23 04/21/23 18:59 06:59 18:59 Intake Total 1752 Output Total 500 Balance 1252 Weight 97.1 kg Intake: IV 1752 Output: Urine 450 Estimated Blood Loss 50 Other: # Voids 0 3 - Labs CBC & Chem 7: 04/21/23 05:41 04/21/23 05:41 Labs: Abnormal Lab Results - Last 24 Hours (Table) 04/21/23 Range/Units 05:41 Sodium 136 L (137-145) mmol/L Glucose 109 H (74-99) mg/dL
--- NOTE | 2023-04-21 12:17 | P.DS ---
Providers Date of admission: 04/20/23 Expected date of discharge: 04/21/23 Attending physician: Keith Kern DO Consults: 04/20/23 15:01 Consult Physician Routine Consulting Provider: Ana Ross Consult Reason/Comments: Medical Management Do you want consulting provider notified?: Yes Primary care physician: Ceferino San MD Hospital Course: Hospital Course: The patient was evaluated preoperatively and found to have the diagnosis of status post L4-S1 MIS TLIF, lumbar stenosis, left lower extremity radiculopathy. They underwent appropriate preoperative care and were willing to undergo the intended procedure. They underwent a successful L4 S1 laminectomy with decompression, were recovered appropriately and sent to the floor. While on the floor they worked with physical therapy, occupational therapy and nursing to enhance their recovery experience. Their pain was well controlled through their stay and they were started on appropriate medications, DVT ppx modalities, activity and dietary needs. Daily labs were monitored closely, and transfusions were only used when necessary. Medicine as well as other consulting services have made their input and have helped with our team approach and multidisciplinary care. PT milestones have been met and passed and they have made the recommendation of home with home care for this patient and treating providers agree with this care path. The patient will be discharged home with appropriate medications, instructions and follow-up information and in stable condition. The patient does refuse home care at this time. Patient Condition at Discharge: Good Plan - Discharge Summary Discharge Rx Participant: Yes New Discharge Prescriptions: New cefaDROXiL [Duricef] 500 mg PO Q12HR 10 Days #20 cap HYDROcodone/APAP 10-325MG [[place] 10-325] 1 tab PO Q4-6H PRN #42 tab PRN Reason: Pain Sennosides/Docusate Sodium [Senna Plus 8.6-50 mg Softgel] 1 each PO DAILY PRN #20 capsule PRN Reason: Constipation No Action Levothyroxine Sodium [Synthroid] 100 mcg PO QAM Aspirin 81 mg PO DAILY lisinopriL [Zestril] 20 mg PO HS Atorvastatin [Lipitor] 10 mg PO DAILY Cetirizine HCl [Zyrtec] 10 mg PO DAILY Discharge Medication List Levothyroxine Sodium [Synthroid] 100 mcg PO QAM 09/24/14 [History] Aspirin 81 mg PO DAILY 04/27/22 [History] lisinopriL [Zestril] 20 mg PO HS 04/27/22 [History] Atorvastatin [Lipitor] 10 mg PO DAILY 07/11/22 [History] Cetirizine HCl [Zyrtec] 10 mg PO DAILY 04/18/23 [History] HYDROcodone/APAP 10-325MG [[place] 10-325] 1 tab PO Q4-6H PRN #42 tab 04/21/23 [Rx] Sennosides/Docusate Sodium [Senna Plus 8.6-50 mg Softgel] 1 each PO DAILY PRN #20 capsule 04/21/23 [Rx] cefaDROXiL [Duricef] 500 mg PO Q12HR 10 Days #20 cap 04/21/23 [Rx] Follow up Appointment(s)/Referral(s): Ceferino San MD [Primary Care Provider] - 1 Week Keith Kern DO [Doctor of Osteopathic Medicine] - 2 Weeks Activity/Diet/Wound Care/Special Instructions: Spine Discharge and Recovery Instructions Date of Surgery: 04/20/2023 Diagnosis: Status post L4-S1 MIS TLIF, Lumbar stenosis, left lower extremity radiculopathy Procedure: Revision L4-S1 laminectomy with decompression Medications: See medication list All medication refills should be obtained through your primary care doctor or your clinic spine surgeon. Please discuss prescription refills at your follow up appointment. Do not call the hospital for medication refills. Dressing: Leave your dressing in place for a total of 5 days post operatively. Then you may remove your dressing and leave open to air. Keep the area clean and if not able to keep area clean, then cover with sterile gauze and tape. Showering: You may shower 3 days after your procedure allowing soap and water to run over incision. Do not scrub. Do not soak. Blot dry. Follow up: Please confirm a follow up appointment with your surgeon 3 weeks post operatively. Please make an appointment to follow up with your PCP in 1-2 weeks after s urgery for evaluation 3 phase, 3-week plan POST OP WEEKS 1-3 1. Lifting/carrying/pushing/pulling limited to less than 5 pounds. 2. Do not sit for longer than 15 minutes at one time. Get up and walk around. Prolonged sitting is NOT advised. If you lay down, see if you can tolerate laying down on you front (belly side) 3. Walk for periods of 15 minutes = 1 mile but no longer; do it multiple times times each day. 4. Ice your low back after activity. POST OP WEEKS 3-6 1. Lifting limited to less than 20 pounds. 2. Do not sit for longer than 30 minutes at a time. Frequently change positions. Use a sit-to stand workstation or take frequent breaks from sitting if you have returned to work. 3. Walk for 30 minutes each day. If possible, do these three or more times a day POST OP WEEKS 6+ At your 6-week appointment we will give you a physical therapy referral to focus on a core stabilization and strengthening program. You should also work on leg & buttock strengthening, hamstring & quadriceps stretching, and continue a low impact aerobic activity program such as swimming, walking, or riding a stationary bicycle. During the initial 6 weeks after your surgery, you are at the highest risk of re-injuring your spine. You should generally avoid BLTs (bending, lifting and twisting combination motions) and follow the above guidelines to reduce the chance of reinjury. You can anticipate post op appointments in our office at approximately 3 weeks and 6 weeks after your surgery. INCISION CARE: If your incision is not draining you do NOT need to cover it with a dressing. Keep your incision clean, dry and intact. In most cases, we apply skin glue, keisha or sutures to the incision at the time of surgery. This will be like a crust or have the appearance of a scab and will fall off in time on its own. The stitches or keisha need to be removed at 3 weeks post op appointment. You may begin to shower 3 days after surgery (this allows the glue to gomez well). However, please avoid scrubbing the incision site or peeling off any of the skin glue. This will ensure optimal healing of your incision. Also, during this time avoid soaking the incision area in water - this includes swimming pools, hot tubs or baths. No ointments, lotions or oils on the incision until your surgeon allows. Leave keisha, sutures or glue in place. Neurological dysfunction that comes on suddenly can also be a sign of a stroke. Below some common symptoms of a stroke are listed: B - balance difficulty such as sudden onset walking or leaning to one side - NEW E - eye problem such as sudden double vision or trouble seeing on one side - NEW F - Facial weakness or numbness on one side - NEW A - Arm or leg weakness or numbness on one side - NEW S - Slurred speech or difficulty with word finding - NEW T - Time is BRAIN! Call 911 as soon as you recognize these symptoms Diet: Consume a regular diet rich in vegetables and lean protein such as chicken or fish. You should consume in a ratio of approximately 20% fats|40% carbohydrates|40%protein. Vegetables, sweet potatoes, brown rice or quinoa are examples of good carbohydrates. Chips, white bread, cookies and sweets/sugar are examples of bad carbohydrates. Limit your bad carbs, go wild with good carbs. "Life's Simple 7" Guidelines as per [place] [employer] These will help you reclaim your life after surgery and impregnator helper in your recovery, keeping in mind your restrictions. (1) Get Active. Physical activity can help people lose weight, control high blood pressure and cholesterol, feel emotionally better, and sleep better. (2) Control Cholesterol. Avoid a diet high in saturated fat, trans fat, & cholesterol. Limit whole milk & cream, ice cream, butter, egg yolks, processed meats (like sausage and hot dogs), and fatty meats. Choose healthy foods that are low in saturated fat, trans fat and cholesterol which include: Fruits and vegetables, fiber rich grain products (like whole grain pasta and brown rice), lean meat such as chicken, fish, nuts, seeds, and legumes. (3) Eat Better. Eat small portions. Shop at the grocery with a list and do not stray from it. Tips for a healthy diet include: Limit sodium intake to less than 1500mg daily, avoid prepackaged, processed, and fast foods, choose a diet rich in fruits, vegetables, and whole grain, high fiber foods, and limit saturated & cholesterol in your diet. (4) Manage Blood Pressure. If you have high blood pressure, you should have a cuff at home so that you can check your blood pressure regularly. Be sure you have a good cuff. An arm one is generally better than a wrist one. Bring the cuff to a doctor's appointment to validate that the measurements that your cuff are taking are accurate. Take your blood pressure twice daily when you are sitting down and relaxing. Record the numbers in a log and bring this log with you to your doctors' appointments. (5) Lose Weight if your BMI is above 25. A healthy BMI is between 19-25. To ca lculate Your BMI, you may use a Standard BMI Calculator on the NIH BMI website: <www.nhlbi.nih.gov/guidelines/obesity/BMI/bmicalc.htm>. Weigh oneself daily. If you are overweight, set a goal to lose weight. A pound a week loss if needed is a good target. (6) Reduce Blood Sugar. Limit foods and liquids with "added sugars." (Added sugars include sucrose, fructose, glucose, maltose, dextrose, high fructose corn syrup, corn syrup, concentrated fruit juice and honey). (7) Stop Smoking. If you smoke, quitting smoking is one of the best things that you can do for your health. Smoking increases your risk of heart attack, stroke, and peripheral vascular disease, which is a build-up of plaque in your arteries. Please discard all the cigarettes and lighters in your house. Have a plan for what you will do when you have the urge to smoke. Direct and second- hand smoke shortens your life as well as the lives of your family, friends and others around you. For your health and the health of those around you, please consider quitting! Proper Bending Body Mechanics: Maintain a wide stance with one foot slightly in front of the other. Keep your back straight. Bend utilizing the strength in your hips and knees. Do not bend at the waist. Maintain the lifted object at your waist-level close to your body. Avoid lifting weight that causes immediately pain or pain anywhere in the body afterwards. Smoking/Nicotine If there was ever one thing that you could do to increase your overall health, decrease your risk of cardiovascular problems by about 39% the second you make the choice, it is to STOP SMOKING. Your body's most instant gratification is the second you stop smoking. We have all heard the studies, read the articles but it is true, smoking is extremely bad for your overall health, and moreover it is detrimental to your bone health. Nicotine, IN ANY FORM, kills bone cells, prevents your body from healing fractures, and significantly prolongs healing after surgery. In spine surgery specifically, it increases your risk of not healing your bones to create a fusion and increases your risk of having a revision surgery due to this up to 60%. I know it is hard. I know it feels impossible. But there are ways. Take control of your life. We are here to help you through it. And when you are ready, ask us and we can direct you to help if you desire. Use the START Plan to Quit Smoking (please visit the Helpguide.org website listed below for more information): S = Set a quit date. Choose a date within the next 2 weeks, so you have enough time to prepare without losing your motivation to quit. If you mainly smoke at work, quit on the weekend, so you have a few days to adjust to the change. T = Tell family, friends, and co-workers that you plan to quit. Let your friends and family in on your plan to quit smoking and tell them you need their support and encouragement to stop. Look for a quit nighat who wants to stop smoking as well. You can help each other get through the rough times. A = Anticipate and plan for the challenges you'll face while quitting. Most people who begin smoking again do so within the first 3 months. You can help yourself make it through by preparing ahead for common challenges, such as nicotine withdrawal and cigarette cravings. R = Remove cigarettes and other tobacco products from your home, car, and work. Throw away all your cigarettes (no emergency pack!), lighters, ashtrays, and matches. Wash your clothes and freshen up anything that smells like smoke. Shampoo your car, clean your drapes and carpet, and steam your furniture. T = Talk to your doctor about getting help to quit. Your doctor can prescribe medication to help with withdrawal and suggest other alternatives. If you can't see a doctor, you can get many products over the counter at your local pharmacy or grocery store, including the nicotine patch, nicotine lozenges, and nicotine gum. Resources for Quitting Smoking: <https://www.[place].gov/documents/mdc/Quit_Tobacco_Resources_fo r_patients_313480_7.pdf> Supplementation: Take recommended dosages of Vitamin D and Calcium to help fortify your bones and help them to heal. See your health maintenance packet for dosages and recommended levels. DVT/VTE prophylaxis: You will be given compression stockings from the hospital. Wear these daily for the first two weeks after surgery. You may take them off at night. You may be prescribed a medication to help thin your blood. Take this as directed. If you are not prescribed this medication, early and frequent ambulation has been shown to be the best prophylaxis to deep vein thrombosis and sequelae related to this event. Discharge Disposition: HOME WITH HOME HEALTH SERVICES
--- NOTE | 2023-04-26 07:38 | P.OP ---
Date of Procedure: 04/20/23 Preoperative Diagnosis: 1. 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 Left lower extremity radiculopathy 3. Lower extremity paresthesias Postoperative Diagnosis: 1. 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 Left lower extremity radiculopathy 3. Lower extremity paresthesias Procedure(s) Performed: 1. Revision L4 5 and L5-S1 bilateral laminectomy with facetectomy and foraminotomy [id number], [id number]) 2. Exploration of fusion L4-S1 (89437) Implants: None Anesthesia: GETA Surgeon: Keith Kern 4Th Grade Teacher #1: Radha Cunningham (Was present and assisted with all aspects of the case from positioning to dressing placement) Estimated Blood Loss (ml): 50 IV fluids (ml): 500 Urine output (ml): 250 Pathology: none sent Condition: stable Disposition: PACU Indications for Procedure: In our visit today we have had a chance to go over subjective complaints, physical examination findings and treatments including the natural course history without intervention and various interventional options. The patients imaging demonstrates: XRay taken on 02/08/23 in office of [facility]: Compared to previous films no interval changes seen in hardware, alignment, rotation. Everything remains stable. CT Myelogram taken on 03/16/23 of [facility]:images are reviewed with the patient.this does demonstrate some continued L4-L5 stenosis centrally and bilateral foraminal. There is scar tissue buildup noted around the nerve on the left-hand side. Hardware appears to be in good position without be evidence of dislocation loosening fracture or translation. No other severe changes noted. On physical exam, Ms. Rosen demonstrates: L4-5 stenosis, as well as numbness throughout the lower left extremity into the foot. I have explained to the patient that as their condition progresses it will cause further neurological deficits and eventual paralysis. Based on the patients imaging, physical exam, and the rapid progression and disabling nature of their symptoms, at this time I recommend surgery in the form of a: Lumbar L4-5 Revision Decompression I discussed the risk and benefits of this procedure at length with Ms. Rosen. The patient and their significant other agreed to considered pursuing the procedure abovementioned. Prior to surgery, she should follow up with her PCP (Cardio, ID, IM etc) for clearance. Questions were invited and answered, and the patient wishes to proceed as outlined below. Currently, I am recommendin. Lumbar L4-5 Revision Decompression Description of Procedure: The patient was seen and examined in the preoperative area. All preoperative protocols were followed. Informed consent was obtained risks and benefits of the procedure were discussed at length. Risks including bleeding infection damage to the surrounding tissue and risk of reoperation were discussed with the patient. Risk of anesthesia up to and including was a discussed with the patient. These are outlined in the risk review. They were willing to accept these risks and all of the risks of surgery. The patient was given a weight- based dose of antibiotics in the form of 2 g Ancef. The patient was seen and evaluated by the anesthesia team who deemed them fit for surgery. The site was marked, the patient was willing to proceed with the procedure. The patient was transferred to the operative suite by the Department of anesthesia. They were then drifted off to sleep by the department anesthesia and GETA was performed. The patient tolerated this well. Rock catheter was placed by nursing staff, atraumatically. Once confirmation of lines and ventilation the patient was transferred to a prone Mika table very carefully. All bony prominences including wrists, elbows, axilla, chest, hips, and thighs, and feet were padded very well. Special attention was paid to the genitalia and these were padded accordingly. SCDs were placed on bilateral lower extremities and were connected. Arms were well padded and placed on arm boards up and out in the 90/90 position. Once in position, again we confirmed good ventilation capabilities and that lines were running appropriately. The patient's lumbar spine was then exposed. 1010s were placed outlining the incision site. Standard alcohol was used to clean the incision site and allowed to dry. C-arm was used to biomark the patient and confirm level for incision which was marked with a skin marker. Operative briefing was performed with all teams and everyone in agreement to proceed. The patient was then prepped and draped in a normal sterile fashion. Timeout was then performed and all parties were in agreement with the procedure to be performed. Midline skin incision was made over the previously marked. Dissection taken down until the fracture was identified midline. Fascia was split centrally over the appropriate levels and dissection taken out subperiosteally over the lamina. We then reached the area of previous decompression which was then carefully exp osed. Hardware was visualized and fusion was explored. There was good hardware placement hardware was not loose and there was bony formation around this area. Once decompression was completed we confirmed levels with lateral x-ray. Decompression was then done using a high-speed bur as well as rongeur and Kerrison rongeur bilateral laminectomy complete facetectomy and foraminotomy revision was done on the left-hand side and on the right-hand side the facetectomy was done at L4 5 and L5-S1. Complete foraminotomies were done as well using Kerrison rongeur and nerve roots were followed distally past the foraminal ligament. This was redone on the left-hand side exuberant scar tissue was removed from this area. We performed neural lysis in this area to release the nerve root from any scar tissue. The risks are intact however and were in good order. Once decompression was complete the area was copiously irrigated with irrigant and we inspected the area. There are no dural leaks or injuries. Good decompression was completed imaging was done with markers was confirmed good decompression in this area. The wound was then copiously irrigated with 3 L of Ancef solution 3 L gentamicin followed by 3 L of normal sterile saline. Surgicel was placed over the dura meticulous hemostasis performed. 2 g of vancomycin powder was then placed deep within the wound. Layered closure was th en performed and the fascia with #1 PDS deep subcu tissue with 0 Vicryl superficial subcu tissue 2-0 Vicryl and skin with skin keisha. The wound edges approximated very well. The wound was then cleaned and dressed sterilely with an operative foam dressing. A deep drain had been placed prior to this was sewed into position. The patient was transferred back to their hospital bed atraumatically. Drain continued to hold suction and were in good position. Patient was then awakened and extubated by the department of anesthesia having tolerated the procedure very well with no complications. They were transferred to the postoperative care unit in stable condition.
== END 2023-04-21 14:49 | disposition home health service (06) ==
LOC: OR 09:59 → 4SSUR 15:00 → OR 04-21 14:49
PROVIDERS: ATTEND Orthopaedic Surgery
DX: M48.061 Spinal stenosis, lumbar region without neurogenic claudication (principal); M99.63 Osseous and subluxation stenosis of intervertebral foramina of lumbar region; M54.16 Radiculopathy, lumbar region; Z98.1 Arthrodesis status; F10.20 Alcohol dependence, uncomplicated; G47.9 Sleep disorder, unspecified; I10 Essential (primary) hypertension; E78.5 Hyperlipidemia, unspecified; M19.90 Unspecified osteoarthritis, unspecified site; G43.909 Migraine, unspecified, not intractable, without status migrainosus; E07.9 Disorder of thyroid, unspecified; Z86.16 Personal history of COVID-19; Z85.828 Personal history of other malignant neoplasm of skin; Z88.8 Allergy status to other drugs, medicaments and biological substances; Z79.52 Long term (current) use of systemic steroids; Z79.82 Long term (current) use of aspirin; Z79.890 Hormone replacement therapy; Z79.1 Long term (current) use of non-steroidal anti-inflammatories (NSAID); Z79.899 Other long term (current) drug therapy
CPT/HCPCS: 97162; 86900; 86901; 80048; 85025; 86850; 72100; 63047; 22830; 63048; J2250; J3370; J0330; J1580; J2710; J0690 ×3; J2405; J3010; J2370; J2704; J1170; J2001

== ENCOUNTER → 2023-08-01 | Outpatient (CLI) | payer MEDICARE ==
--- NOTE | 2023-08-01 13:18 | CT ---
EXAMINATION TYPE: CT lumbar spine wo con DATE OF EXAM: 08/01/2023 COMPARISON: 10/23/2022 HISTORY: low back pain. pain after recent fall. pt had recent back sx CT DLP: [address] of the lumbar spine was performed. Bone and soft tissue window settings are submitted as well as coronal and sagittal reconstructions. L1-L2: There is an acute superior endplate compression fracture with loss of height of L1 estimated a t 10%. Mild paraspinal hematoma is seen. There is no evidence for bony retropulsion. L1-2 disc space appears to be intact and grossly unremarkable. No central stenosis present. L2-L3: Mild degenerative disc space narrowing. Mild circumferential disc bulge with minimal effacemen t of ventral thecal sac. No evidence for disc herniation or central stenosis. L3-L4: Mild degenerative disc space narrowing. Circumferential disc bulge with mild effacement ventra l thecal sac. No evidence for overt stenosis. Mild bilateral foraminal encroachment. No disc herniati on seen. L4-L5: Postoperative changes of lumbar laminectomy and fusion. Intervertebral spacer is in place and well seated. Alignment is stable from prior examination. There appears to be a 2 mm grade 1 anterolis thesis L4 on L5. L5-S1: Postoperative changes of lumbar laminectomy and fusion. Intervertebral spacers in place. Stabl e grade 1 anterolisthesis of L5 on S1 at 3 mm. Pedicular screws are in place. No paraspinal masses are identified. Lumbar segments are free if fracture. Hepatic cyst seen right h epatic lobe. IMPRESSION: 1. Acute or subacute testing for endplate compression fracture of L1 as noted above. 2. Postoperative changes of lumbar laminectomy and fusion at L4-5 and L5-S1 with stable alignment.
== END | disposition home or self-care (01) ==
LOC: RADCTMAIN 10:53
PROVIDERS: ATTEND Orthopaedic Surgery
DX: S32.010A Wedge compression fracture of first lumbar vertebra, initial encounter for closed fracture (principal); M51.36 Other intervertebral disc degeneration, lumbar region; M43.17 Spondylolisthesis, lumbosacral region; K76.89 Other specified diseases of liver; M99.73 Connective tissue and disc stenosis of intervertebral foramina of lumbar region; Z98.1 Arthrodesis status; X58.XXXA Exposure to other specified factors, initial encounter
CPT/HCPCS: 72131

== ENCOUNTER → 2024-02-19 | Outpatient (CLI) | payer MEDICARE ==
[2024-02-19 10:32] VITALS: BP 181/93; PULSE 68; RESP 16; TEMP 97.3
--- NOTE | 2024-02-19 14:36 | P.PAINPG ---
PQRS Measure Charge Sheet Comment: A 73 yr old female with a history of severe and chronic low back pain x 14 mo secondary to lumbar degenerative disc diseases and lumbar spondylosis with facet arthropathy without myelopathy presents today for evaluation. Pain level is currently at 9/10 in intensity, constant, localized in lower lumbar spine, thorobbing in character w shooting towards the L foot and R groin/ thigh. Pain is provoked by bending/lifting. Pain is alleviated with medications, topical, injections, PT x 4 wks which ended in Dec 2023 which provoked pain, hot showers, heating pad, sitting w LEs elevated, repositioning and rest. Oswestry axial score of 34. Interventional pain procedures completed include ESIs L4-L5, BL MBB L3-L5, Lumbar TPIs, L4-S1 TLIF (2022), L1 Kyphoplasty with cement Patient is currently on Neurontin, Tylenol, Advil, BioFreeze gel Patient denies any side effects of the medication(s), denies excessive drowsiness or sleepiness, denies suicidal ideation and reports that the current pain medication is helping to control the pain and improve activities of daily living. Patient denies any motor or sensory deficits. Patient denies any fever or night sweats, denies any change in the bowel movements or urination. Physical Examination: -Constitutional: Cooperative. Not in acute distress . - Neurologic: Cranial nerve II to XII intact. No focal neurological deficits. - Psychatric: Alert & oriented x 3. Matching mood & appropriate affect. Judgment and insight intact. - Musculoskeletal: Cervical spine: Muscle bulk/ tone/ strength in the bilateral upper extremities normal Vertebral body tenderness to palpation over Spurling test positive Distraction test positive Facet loading test positive Thoracic spine Muscle bulk / tone/ strength in the bilateral paraspinal muscles normal Vertebral body tender to palpation over Facet loading test positive Lumbar spine: Motor bulk/ tone/ strength lower extremities , thigh and legs : 5/5 Deep tendon reflexes : Normal Knee Jerk. Normal Ankle Jerk . Vertebral body tenderness to palpation over L5 Coffman test positive L L5-S1 Lumbar Facet Loading Test positive Straight Leg Raise: positive at 30 degrees right side/ left side Gaenslen's Test positive Sacral spine : Severe tenderness over the Sacroiliac joint: right side / left side Range of motion: Flexion of the lumbar spine <60 degrees Range of motion: Extension of the lumbar spine <20 degrees Gaenslen's Test positive Romaine's Test positive Wendy test: positive right side / left side Thigh Thrust Test Sacral Thrust Test Imaging: CT non contrast of the lumbar spine from 08/02/23 reviewed Assessment and plan: Chronic low back pain secondary to L1 Kyphoplasty, L4-S1 TLIF Recommendation of L TFESI L5-S1 #1. May need a series of injections for opitmal pain relief. Risks, benefits of procedure discussed and pt verbalized understanding. Protocol for discontinuation/ continuation of medications catarino procedure discussed. All patient questions answered I have spent less than 30 minutes on patient care today. Dr Lan was available by phone for the evaluation of this patient. The time was used to review the medical records including relevant urine studies and Prescription history (MAPs), review of the available imaging, evaluation and examination of the patient, coordination of care with the medical staff and if applicable referring physicians, as well as creation of the medical record PQRS Narrative: Smoking Status Never smoker Hx Alcohol Use (MH) No Home Medications: Ambulatory Orders Levothyroxine Sodium [Synthroid] 100 mcg PO QAM 09/24/14 Aspirin 81 mg PO DAILY 04/27/22 lisinopriL [Zestril] 20 mg PO HS 04/27/22 Atorvastatin [Lipitor] 10 mg PO DAILY 07/11/22 Cetirizine HCl [Zyrtec] 10 mg PO DAILY 04/18/23 HYDROcodone/APAP 10-325MG [[place] 10-325] 1 tab PO Q4-6H PRN #42 tab 04/21/23 Gabapentin 300 mg PO TID PRN 08/14/23 HYDROcodone/APAP 7.5-325MG [[place] 7.5] 1 each PO Q6HR PRN #28 tab 08/17/23 Controlled Substance Measures - Controlled Substance Measures Is patient prescribed a controlled substance at discharge?: No
== END ==
LOC: PNWHC3 09:25
PROVIDERS: ATTEND Specialist
DX: M54.50 Low back pain, unspecified (principal); G89.29 Other chronic pain; Z98.1 Arthrodesis status; Z88.8 Allergy status to other drugs, medicaments and biological substances
CPT/HCPCS: 99211

== ENCOUNTER 2024-03-05 11:10 | Day surgery (SDC) | payer MEDICARE ==
[2024-03-01 10:51] VITALS: BMI 33.1
[~2024-03-05 11:10] MED LIST changes: -ACETAMINOPHEN TAB 500 MG TAB PO PRN; -GABAPENTIN 300 MG CAP PO PRN; -HYDROmorphone 0.5 MG/0.5 ML SYRINGE IVP PRN; +LACTATED RINGERS 1,000 ML IV SCH; -MIDAZOLAM 2 MG/2 ML VIAL IV PRN; -ONDANSETRON 4 MG/2 ML VIAL IVP PRN; -TRANEXAMIC ACID IN NACL,ISO-OS 1,000 MG in SALINE 1 100ML.BAG IVPB PRN
[2024-03-05 11:45] VITALS: TEMP 98
[2024-03-05] MEDS ORDERED: IOPAMIDOL M200 10 ML VIAL ONE (12:34)
[2024-03-05] MEDS ORDERED: methylPREDNISolone ACETATE 80 MG/ML 1 ML VIAL ONE (12:34)
--- NOTE | 2024-03-05 12:48 | P.PCN ---
Date of Procedure: 03/05/24 Procedure(s) Performed: PREOPERATIVE DIAGNOSIS: 1-Lumbar radiculopathy . 2-history of lumbar laminectomy and fusion POSTOPERATIVE DIAGNOSIS: same As preop diagnosis. PROCEDURE 1. Transforaminal epidural steroid injection under fluoroscopic guidance at left L5-S1 level. (Fluoroscopy images stored on file in the radiology Department ) 2. Lumbar epidurogram . ANESTHESIA: Local with 1% lidocaine 3 ml. EBL: Minimal PROCEDURE INDICATION: The patient with low back pain and radiculopathy symptoms unresponsive to conservative treatment. PROCEDURE DESCRIPTION / TECHNIQUE: The patient was seen and identified in the preoperative area. Risks, benefits, complications, and alternatives were discussed with the patient. The patient agreed to proceed with the procedure and signed the consent, and vital signs were stable. Patient was taken to the OR and time out was completed. The patient was placed in the prone position on procedure table and a pillow was placed under the abdomen to reduce lumbar lordosis. The lumbosacral area was prepped and draped in the usual sterile fashion. Critical pause was taken. Vital signs were closely monitored during the procedure. Using oblique fluoroscopy, the chin of the ``Milo dog at left L5-S1 level was identified, and the skin and deeper tissues just below was localized with 1% lidocaine. Subsequently, a 22-gauge 5-inch spinal needle was advanced under a tunneled view fluoroscopic guidance just underneath the chin of the ``Milo dog at the left L5-S1 Under lateral fluoroscopy, the needle was then advanced to the posterior border of the interforaminal space. After negative aspiration of CSF and blood and with no paresthesias, 1 mL Isovue 200 contrast dye was injected excellent epidurogram and outlining of the nerve root Subsequently, 3 mL of block solution containing 60 mg Depo-Medrol and 2 mL of 0.9% normal saline PF was injected. Needle was remove. At the end of the procedure, skin was cleansed, and bandages were applied. COMPLICATIONS:none DISPOSITION / PLANS: The patient was placed in a supine position and transferred to the recovery area in a stable condition for observation. There was no evidence of lower extremity motor or sensory deficit after the procedure. Patient was discharged from the recovery room after meeting discharge criteria. Home discharge instructions were given to the patient by the staff. The patient was reexamined prior to discharge.
--- NOTE | 2024-03-05 12:58 | FL ---
EXAMINATION TYPE: FL guided pain mgmt statistic Intraoperative/procedural fluoroscopic services were provided. Total fluoroscopy time is 25.5 seconds with a total of 2 submitted images to PACS. Please s ee the operative/procedural note for further details. DAP: 0.1432 mGym2
[2024-03-05 13:12] VITALS: RESP 18
[2024-03-05 13:55] VITALS: BP 133/82; PULSE 66
== END 2024-03-05 13:15 | disposition home or self-care (01) ==
LOC: ORPAIN 11:10
PROVIDERS: ATTEND Specialist
DX: M51.16 Intervertebral disc disorders with radiculopathy, lumbar region (principal); Z98.1 Arthrodesis status; Z88.8 Allergy status to other drugs, medicaments and biological substances
CPT/HCPCS: 64483; Q9966; J1010

== ENCOUNTER → 2024-03-28 | Outpatient (CLI) | payer MEDICARE ==
--- NOTE | 2024-03-28 12:10 | MR ---
EXAMINATION TYPE: MR lumbar spine wo con DATE OF EXAM: 03/28/2024 COMPARISON: CT scan 08/01/2023, MRI 11/02/2021 HISTORY: Prior on PACS, chronic left foot numbness, multiple surgeries including fusion, history of c ompression fracture, no CA TECHNIQUE: T1 and T2 axial and sagittal images of the lumbar spine are submitted. FINDINGS: There is no abnormal signal seen within the visualized spinal cord or paraspinal soft tissu es. There is a 3.9 cm cystic structure in the abdomen apparently in to the left. At L1-2 there is stable chronic mild to moderate compression fracture superior endplate L1. Minimal c entral disc bulging but no canal stenosis or disc herniation. No foraminal encroachment. At L2-3 there is no disc herniation, canal stenosis, or foraminal encroachment. At L3-4 there is assessment spinal canal limited due to artifact from the surgical change. Hypertroph ic change of the facets and ligamentum flavum flavum results in some lateral compression of the theca l sac. Neural foramina are mildly narrowed bilaterally. No focal herniation. At L4-5 there is stable grade 1 anterolisthesis with minimal central and right paracentral disc bulgi ng. Postoperative changes compatible with decompression surgery and laminectomy are similar to recent CT scan. Mild bilateral foraminal encroachment. At L5-S1 there is stable grade 1 anterolisthesis with minimal central and right paracentral disc bulg ing. Postoperative changes compatible with decompression surgery and laminectomy are similar to recen t CT scan. Mild bilateral foraminal encroachment. IMPRESSION: 1. Postsurgical changes L4-5 and L5-S1 with grade 1 anterolisthesis at both levels stable. 2. Stable chronic mild to moderate superior endplate compression fracture L1. 3. There is some lateral compression to the thecal sac at L3-L4 due to ligamentum flavum hypertrophy and facet arthropathy. 4. Mild multilevel bilateral foraminal encroachment. 5. There is a cystic structure in the upper abdomen measuring 3.9 cm possibly related to the pancreas recommend CT of the abdomen and pelvis.
== END | disposition home or self-care (01) ==
LOC: RADMRIMAIN 10:23
PROVIDERS: ATTEND Orthopaedic Surgery
DX: M43.16 Spondylolisthesis, lumbar region (principal); M43.17 Spondylolisthesis, lumbosacral region; M48.56XA Collapsed vertebra, not elsewhere classified, lumbar region, initial encounter for fracture; M47.816 Spondylosis without myelopathy or radiculopathy, lumbar region; M24.28 Disorder of ligament, vertebrae; Z98.1 Arthrodesis status
CPT/HCPCS: 72148

== ENCOUNTER → 2024-04-03 | Outpatient (CLI) | payer MEDICARE ==
[2024-04-03 12:44] VITALS: BP 156/83; PULSE 67; RESP 16
--- NOTE | 2024-04-03 14:49 | P.PAINPG ---
PQRS Measure Charge Sheet Comment: A 73 yr old female with a history of severe and chronic low back pain x 14 mo secondary to lumbar degenerative disc diseases and lumbar spondylosis with facet arthropathy without myelopathy presents today for evaluation s/p L TFESI L5-S1 #1. Pt states she experienced 2 % pain relief x 4 wks s/p procedure. Pain level is currently at 9 /10 in intensity, constant, localized in lower lumbar spine, stinging in character w shooting towards the L foot. Pain is provoked by bending/lifting. Pain is alleviated with medications, topical, injections, PT x 4 wks which ended in Dec 2023 which provoked pain, hot showers, heating pad, sitting w LEs elevated, repositioning and rest. Oswestry axial score of 34. Interventional pain procedures completed include L1 Kyphoplasty with cement, L4- S1 TLIF (2022), ESIs L4-L5, BL MBB L3-L5, Lumbar TPIs, L TFESI L5-S1 x1 Patient is currently on Neurontin, Tylenol, Advil, BioFreeze gel Patient denies any side effects of the medication(s), denies excessive drowsiness or sleepiness, denies suicidal ideation and reports that the current pain medication is helping to control the pain and improve activities of daily living. Patient denies any motor or sensory deficits. Patient denies any fever or night sweats, denies any change in the bowel movements or urination. Physical Examination: -Constitutional: Cooperative. Not in acute distress . - Neurologic: Cranial nerve II to XII intact. No focal neurological deficits. - Psychatric: Alert & oriented x 3. Matching mood & appropriate affect. Judgment and insight intact. - Musculoskeletal: Cervical spine: Muscle bulk/ tone/ strength in the bilateral upper extremities normal Vertebral body tenderness to palpation over Spurling test positive Distraction test positive Facet loading test positive Thoracic spine Muscle bulk / tone/ strength in the bilateral paraspinal muscles normal Vertebral body tender to palpation over Facet loading test positive Lumbar spine: Motor bulk/ tone/ strength lower extremities , thigh and legs : 5/5 Deep tendon reflexes : Normal Knee Jerk. Normal Ankle Jerk . Vertebral body tenderness to palpation Coffman test positive Lumbar Facet Loading Test positive BL L5-S1 Straight Leg Raise: positive at 30 degrees right side/ left side Gaenslen's Test positive Sacral spine : Severe tenderness over the Sacroiliac joint: right side / left side Range of motion: Flexion of the lumbar spine <60 degrees Range of motion: Extension of the lumbar spine <20 degrees Gaenslen's Test positive Romaine's Test positive Wendy test: positive right side / left side Thigh Thrust Test Sacral Thrust Test Imaging: CT non contrast of the lumbar spine from 08/02/23 reviewed MRI non contrast of the lumbar spine from 03/28/24 reviewed Assessment and plan: Chronic low back pain secondary to L1 Kyphoplasty, L4-S1 TLIF Recommendation of BL MBB L5-S1 #1. May need a series of injections, up until RFA, for optimal pain relief. Risks, benefits of procedure discussed and pt verbalized understanding. Protocol for discontinuation/ continuation of medications catarino procedure discussed. All patient questions answered I have spent less than 30 minutes on patient care today. Dr Lan was available by phone for the evaluation of this patient. The time was used to review the medical records including relevant urine studies and Prescription history (MAPs), review of the available imaging, evaluation and examination of the patient, coordination of care with the medical staff and if applicable referring physicians, as well as creation of the medical record PQRS Narrative: Smoking Status Never smoker Hx Alcohol Use (MH) No Home Medications: Ambulatory Orders Levothyroxine Sodium [Synthroid] 100 mcg PO QAM 09/24/14 lisinopriL [Zestril] 20 mg PO QAM 04/27/22 Atorvastatin [Lipitor] 10 mg PO HS 07/11/22 Gabapentin 300 mg PO BID 08/14/23 Acetaminophen [Tylenol] 325 - 650 mg PO Q4H PRN 03/01/24 [id number] [Excedrin] 1 each PO Q6HR PRN 03/01/24 Controlled Substance Measures - Controlled Substance Measures Is patient prescribed a controlled substance at discharge?: No
== END ==
LOC: PNWHC3 10:39
PROVIDERS: ATTEND Specialist
DX: M54.50 Low back pain, unspecified (principal); M40.47 Postural lordosis, lumbosacral region; Z88.9 Allergy status to unspecified drugs, medicaments and biological substances
CPT/HCPCS: 99211

== ENCOUNTER 2024-04-23 08:12 | Day surgery (SDC) | payer MEDICARE ==
[2024-04-19 13:21] VITALS: BMI 32.8
[2024-04-23 08:49] VITALS: TEMP 97
[2024-04-23] MEDS: IV FLUID CONTINUATION 1,000 ML IV ONE ×2 (09:00→09:42)
[2024-04-23] MEDS: LACTATED RINGERS 1,000 ML IV SCH (09:06)
[2024-04-23] MEDS ORDERED: ROPIVACAINE 5MG/ML 20ML VIAL ONE (09:17)
[2024-04-23] MEDS ORDERED: MIDAZOLAM 2 MG/2 ML VIAL ONE (09:17)
--- NOTE | 2024-04-23 09:40 | P.PCN ---
Date of Procedure: 04/23/24 Surgeon: Raman Gurrola Pathology: none sent Condition: stable Disposition: PACU Description of Procedure: PREOPERATIVE DIAGNOSIS : 1- Lumbar spondylosis with Facet Arthropathy without myelopathy . 2-postlaminectomy pain syndrome POSTOPERATIVE DIAGNOSIS: 1- Lumbar spondylosis with Facet Arthropathy without myelopathy . 2- postlaminectomy pain syndrome PROCEDURE: Diagnostic bilateral L5-S1 medial branch block under fluoroscopy Physician: Raman Gurrola MD ANESTHESIA: Local with 1% lidocaine;and IV moderate conscious sedation with 2 mg of Versed EBL: Negligible sedation time: 119990 of note the patient has extensive hardware in her back and only level I could recognize was the superior medial aspect of the sacral ala. I recommend that the patient gets caudal epidural steroid injection next time with lysis of adhesions.she also has a separate left foot pain and the left atrial block may be helpful and can be tried as diagnostic procedure in the future. Of note the patient failed to respond to transforaminal epidural steroid injection most likely due to inability to recognize the target points given the extensive hardware in her back. COMPLICATION: None. PROCEDURE INDICATION: Chronic low back pain secondary to Facet arthropathy unresponsive to conservative treatment. PROCEDURE DESCRIPTION: the patient was seen and identified in the preop holding area , risks and benefits and possible complications of the procedure and alternatives were discussed with the patient, and the patient agreed to proceed with the procedure and signed the consent. IV was started and vital signs monitored during the procedure and fluoroscopy was used to maximize the benefit and accuracy of the needle placement, sedation was given to decrease patient anxiety, patient was taken to the procedure room and placed in prone position vital signs monitored. The patient was brought into the procedure room and placed in prone position. Skin was prepped with Chloraprep and draped in a sterile manner. Lidocaine 1% was used to numb the skin up at the target points that were chosen as follows: at the L5-S1 level which corresponds to the dorsal ramus of L5 the target points were at the superior medial aspect of the sacral ala on each side of the spine on the AP view of fluoroscopy. I used 22-gauge 3-1/2 inch Quincke spinal needles for this procedure and after contacting bone at the target points mentioned above I injected 1 mL of Ropivacaine 0.5% PF in each needle . Patient tolerated procedure well. At the end of the procedure the needles removed and a bandage applied after the skin was cleaned the cleaning solution. patient was then taken to the recovery room in stable condition and monitored in the recovery room for 20-30 minutes and discharged home in stable condition after discharge criteria met . A copy of the needle placement picture was saved to the C-arm machine.
[2024-04-23 10:08] VITALS: BP 135/73; PULSE 67; RESP 16
--- NOTE | 2024-04-23 11:06 | FL ---
EXAMINATION TYPE: FL guided pain mgmt statistic Intraoperative/procedural fluoroscopic services were provided. Total fluoroscopy time is 7.8 seconds with a total of 1 submitted images to PACS. Please se e the operative/procedural note for further details. DAP: [id number] mGym2
== END 2024-04-23 10:10 | disposition home or self-care (01) ==
LOC: ORPAIN 08:12
PROVIDERS: ATTEND Anesthesiology
DX: M47.816 Spondylosis without myelopathy or radiculopathy, lumbar region (principal); M96.1 Postlaminectomy syndrome, not elsewhere classified; G89.29 Other chronic pain; Z88.8 Allergy status to other drugs, medicaments and biological substances
CPT/HCPCS: 64493; 99152; J2250; J2795

== ENCOUNTER → 2024-05-02 | Outpatient (CLI) | payer MEDICARE ==
[2024-05-02 10:55] VITALS: BP 169/80; PULSE 67; RESP 16; TEMP 97.3
--- NOTE | 2024-05-02 13:28 | P.PAINPG ---
Objective - Vital Signs Vital signs: Intake & Output 05/01/24 05/02/24 05/02/24 18:59 06:59 18:59 Weight 51.256 kg PQRS Measure Charge Sheet Comment: A 73 yr old female with a history of severe and chronic low back pain x 14 mo secondary to lumbar degenerative disc diseases and lumbar spondylosis with facet arthropathy without myelopathy presents today for evaluation s/p BL MBB L5-S1 #1. Pt states she experienced 100 % pain relief x 6 hrs s/p procedure. Pain level is currently at 9 /10 in intensity, constant, localized in lower lumbar spine, stinging in character w shooting towards the L foot. Pain is provoked by bending/lifting. Pain is alleviated with medications, topical, injections, PT x 4 wks which ended in Dec 2023 which provoked pain, hot showers, heating pad, sitting w LEs elevated, repositioning and rest. Oswestry axial score of 34. Interventional pain procedures completed include L1 Kyphoplasty with cement, L4- S1 TLIF (2022), ESIs L4-L5, BL MBB L3-L5, Lumbar TPIs, L TFESI L5-S1 x1 , BL MBB L5-S1 x1 Patient is currently on Neurontin, Tylenol, Advil, BioFreeze gel Patient denies any side effects of the medication(s), denies excessive drowsiness or sleepiness, denies suicidal ideation and reports that the current pain medication is helping to control the pain and improve activities of daily living. Patient denies any motor or sensory deficits. Patient denies any fever or night sweats, denies any change in the bowel movements or urination. Physical Examination: -Constitutional: Cooperative. Not in acute distress . - Neurologic: Cranial nerve II to XII intact. No focal neurological deficits. - Psychatric: Alert & oriented x 3. Matching mood & appropriate affect. Judgment and insight intact. - Musculoskeletal: Cervical spine: Muscle bulk/ tone/ strength in the bilateral upper extremities normal Vertebral body tenderness to palpation over Spurling test positive Distraction test positive Facet loading test positive Thoracic spine Muscle bulk / tone/ strength in the bilateral paraspinal muscles normal Vertebral body tender to palpation over Facet loading test positive Lumbar spine: Motor bulk/ tone/ strength lower extremities , thigh and legs : 5/5 Deep tendon reflexes : Normal Knee Jerk. Normal Ankle Jerk . Vertebral body tenderness to palpation Coffman test positive Lumbar Facet Loading Test positive BL L5-S1 Straight Leg Raise: positive at 30 degrees right side/ left side Gaenslen's Test positive Sacral spine : Severe tenderness over the Sacroiliac joint: right side / left side Range of motion: Flexion of the lumbar spine <60 degrees Range of motion: Extension of the lumbar spine <20 degrees Gaenslen's Test positive Romaine's Test positive Wendy test: positive right side / left side Thigh Thrust Test Sacral Thrust Test Imaging: CT non contrast of the lumbar spine from 08/02/23 reviewed MRI non contrast of the lumbar spine from 03/28/24 reviewed Assessment and plan: Chronic low back pain secondary to L1 Kyphoplasty, L4-S1 TLIF Recommendation of BL MBB L5-S1 #2. May need a series of injections, up until RFA, for optimal pain relief. Risks, benefits of procedure discussed and pt verbalized understanding. Protocol for discontinuation/ continuation of medications catarino procedure discussed. Minimal anesthesia including Fentanyl and Versed if clincally indicated. All patient questions answered I have spent less than 30 minutes on patient care today. Dr Lan was available by phone for the evaluation of this patient. The time was used to review the medical records including relevant urine studies and Prescription history (MAPs), review of the available imaging, evaluation and examination of t he patient, coordination of care with the medical staff and if applicable referring physicians, as well as creation of the medical record PQRS Narrative: Smoking Status Never smoker Hx Alcohol Use (MH) No Home Medications: Ambulatory Orders Levothyroxine Sodium [Synthroid] 100 mcg PO QAM 09/24/14 lisinopriL [Zestril] 20 mg PO QAM 04/27/22 Atorvastatin [Lipitor] 10 mg PO HS 07/11/22 Gabapentin 300 mg PO BID 08/14/23 Acetaminophen [Tylenol] 325 - 650 mg PO Q4H PRN 03/01/24 Cizeich-Dxfd-Iwhe [id number] [Excedrin] 1 each PO Q6HR PRN 03/01/24 Cetirizine HCl [Zyrtec] 5 mg PO DAILY 04/23/24 Controlled Substance Measures - Controlled Substance Measures Is patient prescribed a controlled substance at discharge?: No
== END ==
LOC: PNWHC3 10:30
PROVIDERS: ATTEND Specialist
DX: G89.29 Other chronic pain (principal); M40.205 Unspecified kyphosis, thoracolumbar region; M43.27 Fusion of spine, lumbosacral region; Z88.8 Allergy status to other drugs, medicaments and biological substances
CPT/HCPCS: 99211

== ENCOUNTER → 2024-06-06 | Day surgery (SDC) | payer MEDICARE ==
[2024-06-06 09:42] VITALS: PULSE 62; RESP 16; TEMP 96.9
[2024-06-06 09:44] VITALS: BP 179/90
[2024-06-06] MEDS: IV FLUID CONTINUATION 1,000 ML IV ONE (09:50)
[2024-06-06] MEDS: LACTATED RINGERS 1,000 ML IV SCH (09:50)
--- NOTE | 2024-06-06 10:43 | P.PN ---
Progress Note - Text Today patient has come for second diagnostic medial branch block. Patient's main pain is in the left lower extremity from lateral aspect of thigh to the posterior lateral aspect of the leg up to the arch of the foot. Patient is reluctant to have today's diagnostic injection as her shooting pain to left lower extremity is not expected to relieve from today's injection as it is more of radicular type. I had a long discussion with the patient. Please schedule next procedure: Caudal epidural steroid injection with lysis of adhesions. Diagnosis: Postlaminectomy syndrome. Lumbar radiculopathy.
== END ==
LOC: ORPAIN 09:04
PROVIDERS: ATTEND Pain Medicine Interventional Pain Medicine
DX: Z53.8 Procedure and treatment not carried out for other reasons (principal); M96.1 Postlaminectomy syndrome, not elsewhere classified; M54.16 Radiculopathy, lumbar region

== ENCOUNTER → 2024-07-10 | Outpatient (CLI) | payer MEDICARE | LOC: PNWHC3 09:30 | PROVIDERS: ATTEND Specialist | DX: M54.16 Radiculopathy, lumbar region | CPT/HCPCS: 99211 ==

== ENCOUNTER → 2024-08-08 | Outpatient (CLI) | payer MEDICARE ==
--- NOTE | 2024-08-08 10:56 | US ---
EXAMINATION TYPE: US abdomen complete DATE OF EXAM: 08/08/2024 COMPARISON: NONE CLINICAL INDICATION: Female, 74 years old with history of R10.11 RUQ PAIN; RUQ pain TECHNIQUE: Multiple sonographic images of the abdomen are obtained. FINDINGS: EXAM MEASUREMENTS: Liver Length: 17.4 cm Gallbladder Wall: 0.2 cm CBD: .9 cm Spleen: 12.3 cm Right Kidney: 11.7 x 4.2 x 3.8 cm Left Kidney: 9.9 x 4.1 x 4.3 cm FAMILY MEDICINE PHYSICIAN ASSISTANT NOTES: Pancreas: Tail obscured by overlying bowel gas Liver: Two cystic areas seen largest 5.4 x 5.9 x 7.4 cm Gallbladder: Echogenic areas seen Evidence for sonographic Humphrey's sign: no CBD: Dilated Spleen: wnl Right Kidney: No hydronephrosis or masses seen Left Kidney: No hydronephrosis or masses seen Upper IVC: wnl Abd Aorta: wnl The liver is homogenous. The intrahepatic portion of the IVC and proximal abdominal aorta are within normal limits. Cholelithiasis versus layering debris in the gallbladder lumen.. Common bile duct is unremarkable. The visualized portions of the pancreas are homogenous. The spleen is unremarkable. Kidneys are symmetric and free of hydronephrosis. No renal lesions are seen. IMPRESSION: 1. No evidence for acute process. 2. Hepatic cysts. 3. Layering gallstones versus debris in the gallbladder lumen. [facility] Lashae Villa, , 08/08/2024 10:54 AM
== END | disposition home or self-care (01) ==
LOC: RADUSWWP 10:14
PROVIDERS: ATTEND Family Medicine
DX: R10.11 Right upper quadrant pain
CPT/HCPCS: 76700

== ENCOUNTER 2024-08-30 06:05 | Day surgery (SDC) | payer MEDICARE ==
[2024-08-30] MEDS: IV FLUID CONTINUATION 1,000 ML IV ONE ×3 (06:43→10:30)
[2024-08-30] MEDS ORDERED: MIDAZOLAM 2 MG/2 ML VIAL IV PRN (07:00)
[2024-08-30] MEDS ORDERED: HYDROmorphone 0.5 MG/0.5 ML SYRINGE IVP PRN (07:00)
[2024-08-30] MEDS: HEPARIN SODIUM,PORCINE 5,000 UNIT/ML 1 ML VIAL SQ PRN (07:03)
[2024-08-30] MEDS: ACETAMINOPHEN TAB 500 MG TAB PO PRN (07:03)
[2024-08-30] MEDS: DEXAMETHASONE SOD PHOSPHATE 4 MG/ML 1 ML VIAL IV ONE (07:03)
[2024-08-30] MEDS: LACTATED RINGERS 1,000 ML IV SCH (07:04)
[2024-08-30] MEDS: ONDANSETRON 4 MG/2 ML VIAL IVP ONE (07:04)
[2024-08-30 07:06] LABS: HCT 39.6 % (34.0-46.0); HGB 13.2 gm/dL (11.4-16.0); MCH 30.5 pg (25.0-35.0); MCHC 33.3 g/dL (31.0-37.0); MCV 91.5 fL (80.0-100.0); Mean Platelet Volume 7.2; Platelet Count 179 k/uL (150-450); RBC 4.33 m/uL (3.80-5.40); RDW 13.6 % (11.5-15.5); WBC 3.9 k/uL (3.8-10.6)
[2024-08-30] MEDS ORDERED: GLYCOPYRROLATE 0.2 MG/ML 2 ML VIAL ONE (07:31)
[2024-08-30] MEDS ORDERED: PROPOFOL 10 MG/ML 20 ML VIAL IV ONE (07:31)
[2024-08-30] MEDS ORDERED: PHENYLEPHRINE 10 MG/ML VIAL ONE (07:31)
[2024-08-30] MEDS ORDERED: SUCCINYLCHOLINE CHLORIDE 200 MG/10 ML VIAL IV ONE (07:31)
[2024-08-30] MEDS ORDERED: ROCURONIUM 10 MG/ML (5 ML VIAL) IV ONE (07:31)
[2024-08-30] MEDS ORDERED: MIDAZOLAM 2 MG/2 ML VIAL ONE (07:31)
[2024-08-30] MEDS ORDERED: LIDOCAINE 1% INJ 10MG/ML (20 ML MDV) ONE (07:31)
[2024-08-30] MEDS ORDERED: fentaNYL (PF) 50 MCG/ML 2 ML AMP ONE (07:31)
[2024-08-30] MEDS ORDERED: KETOROLAC 15 MG/ML 1 ML VIAL ONE (07:31)
[2024-08-30] MEDS ORDERED: NEOSTIGMINE 1 MG/ML 10 ML VIAL ONE (07:31)
[2024-08-30] MEDS: LIDOCAINE 1%-EPI 1:100,000 20 ML VIAL SQ ONE (07:57)
--- NOTE | 2024-08-30 08:25 | P.OP ---
Date of Procedure: 08/30/24 Preoperative Diagnosis: Cholecystitis Postoperative Diagnosis: Cholecystitis Procedure(s) Performed: Laparoscopic cholecystectomy Anesthesia: LILIA Surgeon: Robby Ng Estimated Blood Loss (ml): 5 Pathology: other (Gallbladder) Condition: stable Disposition: PACU Description of Procedure: Patient placed on the op table in the supine position. She received general G- tube anesthesia. Her abdomen is prepped in the usual fashion. The incision sites were assessed 1% local Xylocaine. Using an 11 blade the infraumbilical skin incision was made. Then using a pair Jasmyn clamps the fascia was grasped. The Veress needle was positioned into the peritoneal cavity a positive drop test was performed. After adequate deflation of 5 mm trocars placed in the peritoneal cavity. The laparoscope placed from the cavity. Next patient was placed in reverse Trendelenburg right side up position. A 10 mm trocars placed in the epigastric region and then a 5 mm trocar was placed in the right lateral and right subcostal position. The gallbladder is visualized. The gallbladder was grasped at the fundus and infundibulum. Traction of the gallbladder was placed in a lateral and cephalad position. This opened up the triangle. The cystic was seen. The stomach was then bluntly dissected with a pusher. And then the triangle of YASH was visualized. A critical view of safety was achieved between the cystic duct common bile duct, and her head the hepatic duct. Cystic was then ligated with a 2-0 silk suture to Ethibond suture. Synojoynt is applied. The cystic was then cut using the harmonic scissors. And then the cystic artery was divided using robotic scissors. The gallbladder is removed from liver bed use electrocautery and the robotic scissors. The specimen was retracted through the 10 mm trocar site. The abdomen irrigated till being seen. Treatment withdrawn. Skin was closed interrupted 3-0 Monocryl suture. Dermabond was applied. Patient tolerated well. She was sent to recovery in stable condition.
[2024-08-30 08:29] LABS: African American GFR (CKD) >90 (>60 ml/min/1.73 sqM); Anion Gap 4 mmol/L; Blood Urea Nitrogen 13 mg/dL (7-17); Calcium 9.3 mg/dL (8.4-10.2); Carbon Dioxide 28 mmol/L (22-30); Chloride 108 mmol/L (98-107); Glucose 96 mg/dL (74-99); Non-African American GFR(CKD) >90 (>60 ml/min/1.73 sqM); Potassium 4.1 mmol/L (3.5-5.1); Sodium 140 mmol/L (137-145)
[2024-08-30] MEDS: droPERidol 5 MG/2 ML VIAL IVP ONE (10:50)
[2024-08-30] MEDS: ePHEDrine 50 MG/ML 1 ML VIAL IVP ONE (10:59)
[2024-08-30 11:10] LABS: Glucose,Whole Blood 157 mg/dL (70-110)
[2024-08-30 11:31] LABS: Basophils % (A) 0 %; Eosinophils % (A) 1 %; HCT 30.3 % (34.0-46.0); HGB 10.5 gm/dL (11.4-16.0); Lymphocytes % (A) 19 %; MCH 31.7 pg (25.0-35.0); MCHC 34.7 g/dL (31.0-37.0); MCV 91.5 fL (80.0-100.0); Mean Platelet Volume 7.9; Monocytes # (A) 0.1 k/uL (0-1.0); Monocytes % (A) 2 %; Neutrophils % (A) 77 %; Platelet Count 164 k/uL (150-450); RBC 3.31 m/uL (3.80-5.40); WBC 5.3 k/uL (3.8-10.6)
[2024-08-30 11:40] LABS: African American GFR (CKD) >90 (>60 ml/min/1.73 sqM); Anion Gap 3 mmol/L; Blood Urea Nitrogen 13 mg/dL (7-17); Calcium 8.4 mg/dL (8.4-10.2); Carbon Dioxide 24 mmol/L (22-30); Chloride 111 mmol/L (98-107); Glucose 160 mg/dL (74-99); Magnesium 1.7 mg/dL (1.6-2.3); Non-African American GFR(CKD) >90 (>60 ml/min/1.73 sqM); Potassium 4.1 mmol/L (3.5-5.1); Sodium 138 mmol/L (137-145)
--- NOTE | 2024-08-30 14:32 | P.GSCN ---
History of Present Illness Consult date: 08/30/24 History of present illness: CHIEF COMPLAINT: Cholecystitis HISTORY OF PRESENT ILLNESS: This is a 74-year-old female who had an elective laparoscopic cholecystectomy today for cholecystitis. Patient reports that she was sitting on the side of the bed to get ready to go home. She became very dizzy and lightheaded and felt that she might pass out. Vitals were obtained and per nursing staff her heart rate was in the 30s and she was also hypotensive. Nursing staff also reported that patient had received Zofran as well. EKG was completed which had shown sinus bradycardia and EKG changes. Patient does report taking her blood pressure medications last night. Patient denies any chest pain or shortness of breath. Denies any prior history of bradycardia. She does report having nausea earlier that is now improved. She is currently tolerating a regular diet. Vitals have improved. PAST MEDICAL HISTORY: Hyperlipidemia, Hypertension, Thyroid Disorder, chronic back pain, migraines, COVID PAST SURGICAL HISTORY: See below MEDICATIONS: See below ALLERGIES: See below SOCIAL HISTORY: No illicit drug use. REVIEW OF SYSTEMS: CONSTITUTIONAL: Denies fever or chills. HEENT: Denies blurred vision, vision changes, or eye pain. Denies hemoptysis CARDIOVASCULAR: Denies chest pain or pressure. RESPIRATORY: No shortness of breath. GASTROINTESTINAL: See HPI for pertinent findings HEMATOLOGIC: Denies bleeding disorders. GENITOURINARY: Denies any blood in urine or increased urinary frequency. SKIN: Denies pruitis. Denies rash. PHYSICAL EXAM: VITAL SIGNS: Reviewed GENERAL: Well-developed in no acute distress. HEENT: No sclera icterus. Extraocular movements grossly intact. Moist buccal mucosa. Head is atraumatic, normocephalic. No nasal drainage. ABDOMEN: Soft. Nondistended. Incision sites clean dry and intact NEUROLOGIC: Alert and oriented. Cranial nerves II through XII grossly intact. LABORATORY DATA: WBC 5.3 Hgb 13.2 down to 10.5 platelets 164 Sodium 138 potassium 4.1 creatinine 0.57 IMAGING: ASSESSMENT: 1. Cholecystitis status post laparoscopic cholecystectomy 2. Presyncopal episode with bradycardia and hypotension PLAN: -Consult cardiology service -Continue IV fluids -Okay for regular diet -Continue pain management Physician Senior Gis Analyst note has been reviewed by physician. Signing provider agrees with the documented findings, assessment, and plan of care. Past Medical History Past Medical History: Cancer, Hyperlipidemia, Hypertension, Thyroid Disorder Additional Past Medical History / Comment(s): chronic back pain, Hx migraines, arthritis, skin cancer. Hx COVID 05/2022,covid Nov 2023, hypothyroidism History of Any Multi-Drug Resistant Organisms: None Reported Past Surgical History: Bladder Surgery, Joint Replacement, Orthopedic Surgery Additional Past Surgical History / Comment(s): D&C, bilateral foot surgery. PAIN CLINIC PROCEDURES, COLONOSCOPIES, BILAT KNEE SCOPES, RT SOFIA Past Anesthesia/Blood Transfusion Reactions: No Reported Reaction Additional Past Anesthesia/Blood Transfusion Reaction / Comm: Mother- cold and shaky. Smoking Status: Never smoker - Past Family History Mother Family Medical History: Cancer, CVA/TIA, Deep Vein Thrombosis (DVT) Additional Family Medical History / Comment(s): Ovarian cancer. Father Family Medical History: Congestive Heart Failure (CHF) Medications and Allergies Home Medications Medication Instructions Recorded Confirmed Type Levothyroxine Sodium [Synthroid] 100 mcg PO QAM 09/24/14 08/30/24 History lisinopriL [Zestril] 20 mg PO QAM 04/27/22 08/30/24 History Atorvastatin [Lipitor] 10 mg PO HS 07/11/22 08/30/24 History Gabapentin 300 mg PO BID PRN 08/14/23 08/30/24 History Acetaminophen [Tylenol] 325 - 650 mg PO Q4H PRN 03/01/24 08/30/24 History Vsyntej-Hbfv-Suhb [id number] 1 each PO Q6HR PRN 03/01/24 08/30/24 History [Excedrin] Cetirizine HCl [Zyrtec] 5 mg PO DAILY 04/23/24 08/30/24 History Acetaminophen Tab [Tylenol] 650 mg PO Q6H #30 tab 08/30/24 Rx Docusate [Colace] 100 mg PO BID #20 capsule 08/30/24 Rx Ibuprofen [Motrin] 600 mg PO Q6HR PRN #40 tab 08/30/24 Rx oxyCODONE HCL [OxyIR] 5 mg PO Q6H PRN 3 Days #10 tab 08/30/24 Rx Allergies Allergy/AdvReac Type Severity Reaction Status Date / Time Antihistamines - Alkylamine AdvReac shelia, Verified 08/30/24 06:37 lightheaded Surgical - Exam Vital Signs Temp Pulse Resp BP Pulse Ox 97.0 F L 53 L 16 189/84 97 08/30/24 06:40 08/30/24 06:40 08/30/24 06:40 08/30/24 06:40 08/30/24 06:40 Results - Labs 08/30/24 11:20 08/30/24 11:20 Abnormal Lab Results - Last 24 Hours (Table) 08/30/24 08/30/24 08/30/24 Range/Units 07:28 11:01 11:20 RBC 3.31 L (3.80-5.40) m/uL Hgb 10.5 L (11.4-16.0) gm/dL Hct 30.3 L (34.0-46.0) % Chloride 108 H (98-107) mmol/L Glucose (74-99) mg/dL POC Glucose (mg/dL) 157 H (70-110) mg/dL 08/30/24 Range/Units 11:20 RBC (3.80-5.40) m/uL Hgb (11.4-16.0) gm/dL Hct (34.0-46.0) % Chloride 111 H (98-107) mmol/L Glucose 160 H (74-99) mg/dL POC Glucose (mg/dL) (70-110) mg/dL Diabetes panel 08/30/24 08/30/24 Range/Units 07:28 11:20 Sodium 140 138 (137-145) mmol/L Potassium 4.1 4.1 (3.5-5.1) mmol/L Chloride 108 H 111 H (98-107) mmol/L Carbon Dioxide 28 24 (22-30) mmol/L BUN 13 13 (7-17) mg/dL Creatinine 0.61 0.57 (0.52-1.04) mg/dL Glucose 96 160 H (74-99) mg/dL Calcium 9.3 8.4 (8.4-10.2) mg/dL Calcium panel 08/30/24 08/30/24 Range/Units 07:28 11:20 Calcium 9.3 8.4 (8.4-10.2) mg/dL Pituitary panel 08/30/24 08/30/24 Range/Units 07:28 11:20 Sodium 140 138 (137-145) mmol/L Potassium 4.1 4.1 (3.5-5.1) mmol/L Chloride 108 H 111 H (98-107) mmol/L Carbon Dioxide 28 24 (22-30) mmol/L BUN 13 13 (7-17) mg/dL Creatinine 0.61 0.57 (0.52-1.04) mg/dL Glucose 96 160 H (74-99) mg/dL Calcium 9.3 8.4 (8.4-10.2) mg/dL Adrenal panel 08/30/24 08/30/24 Range/Units 07:28 11:20 Sodium 140 138 (137-145) mmol/L Potassium 4.1 4.1 (3.5-5.1) mmol/L Chloride 108 H 111 H (98-107) mmol/L Carbon Dioxide 28 24 (22-30) mmol/L BUN 13 13 (7-17) mg/dL Creatinine 0.61 0.57 (0.52-1.04) mg/dL Glucose 96 160 H (74-99) mg/dL Calcium 9.3 8.4 (8.4-10.2) mg/dL
--- NOTE | 2024-08-30 14:43 | P.CRDCN ---
History of Present Illness History of present illness: HISTORY OF PRESENT ILLNESS: This is a 74-year-old female with a past medical history significant for hypertension and hyperlipidemia. 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 We have been asked to see the patient in consultation for postoperative bradycardia and presyncope. Patient examined at the bedside. Patient states she broke her back last year after a fall at home due to her dog. She reports she has been having some ongoing back pain and thought it was secondary to her spinal fracture. However when her symptoms persisted she sought further evaluation. She had an ultrasound performed revealing evidence of layering gallstones. Patient underwent elective laparoscopic cholecystectomy today with Dr. Ng. Postoperatively, the patient was in the process of being discharged home when she sat on the side of the bed and began to feel dizzy and lightheaded. Apparently the patient was not hooked up to telemetry monitoring at this time. However she was hooked up to a pulse oximeter and blood pressure cuff. The patient's states that he saw her heart rate go to 39 and her blood pressure was in the 70s. He reports that she appeared pale. The patient denies losing consciousness. The patient denies any previous episodes of presyncope or syncope. She denied having any chest pain or pressure. She denied any shortness of breath. The patient was admitted to [facility] for observation. The patient states she has since been up to the bathroom and ambulated without any complaints of dizziness or lightheadedness. She is currently eating lunch at the time of my examination. She reports shoulder pain secondary to laparoscopic surgery. Vital signs are stable. Telemetry reveals sinus mechanism. She is a non-smoker. DIAGNOSTICS: - EKG reveals sinus mechanism. Repeat EKG reveals sinus mechanism with a PVC. No signs of acute ischemia. - Laboratory data: WBC 5.3. Hemoglobin 10.5. Platelet count 164. Sodium 138. Potassium 4.1. BUN 13. Creatinine 0.57. Magnesium 1.7. - Current home cardiac medications include Lipitor 10 mg at night and lisinopril 20 mg in the morning - No previous echocardiogram, stress test, or cardiac catheterization available in EMR for review REVIEW OF SYSTEMS: At the time of my exam: CONSTITUTIONAL: Denies fever or chills. HEENT: Denies blurred vision, vision changes, or eye pain. Denies hemoptysis CARDIOVASCULAR: Denies chest pain. Denies orthopnea. Denies PND. Denies palpitations RESPIRATORY: Denies shortness of breath. GASTROINTESTINAL: Denies abdominal pain. Denies nausea or vomiting. HEMATOLOGIC: Denies bleeding disorders. GENITOURINARY: Denies any blood in urine. SKIN: Denies pruitis. Denies rash. PHYSICAL EXAM: VITAL SIGNS: Reviewed. GENERAL: Well-developed in no acute distress. HEENT: Head is normocephalic. Pupils are equal, round. Sclerae anicteric. Mucous membranes of the mouth are moist. Neck supple. No JVD or thyromegaly LUNGS: Respirations even and unlabored. Lungs essentially clear to auscultation bilaterally. HEART: Regular rate and rhythm. S1 and S2 heard. ABDOMEN: Soft. Nondistended. Nontender. EXTREMITIES: Normal range of motion. No clubbing or cyanosis. Peripheral pul ses intact. No lower extremity edema NEUROLOGIC: Awake and alert. Oriented x 3. ASSESSMENT: Status post laparoscopic cholecystectomy Postoperative bradycardia and presyncope, likely vasovagal secondary to anesthesia History of hypertension History of hyperlipidemia History of L1 vertebral fracture secondary to fall from her dog, 2022 History of L4-S1 decompression and fusion PLAN: Patients symptoms likely secondary to vasovagal due to surgery and anesthesia Obtain 2D echo to assess cardiac structure and function Resume home cardiac medications Continue telemetry monitoring Check TSH Anticipate discharge home tomorrow if patient remains stable Further recommendations pending patient course Nurse practitioner note has been reviewed by physician. Signing provider agrees with the documented findings, assessment, and plan of care documented by LIMITED RADIOLOGY TECHNICIAN as a scribe. Past Medical History Past Medical History: Cancer, Hyperlipidemia, Hypertension, Thyroid Disorder Additional Past Medical History / Comment(s): chronic back pain, Hx migraines, arthritis, skin cancer. Hx COVID 05/2022,covid Nov 2023, hypothyroidism History of Any Multi-Drug Resistant Organisms: None Reported Past Surgical History: Bladder Surgery, Joint Replacement, Orthopedic Surgery Additional Past Surgical History / Comment(s): D&C, bilateral foot surgery. PAIN CLINIC PROCEDURES, COLONOSCOPIES, BILAT KNEE SCOPES, RT SOFIA Past Anesthesia/Blood Transfusion Reactions: No Reported Reaction Additional Past Anesthesia/Blood Transfusion Reaction / Comment(s): Mother- cold and shaky. Smoking Status: Never smoker - Past Family History Mother Family Medical History: Cancer, CVA/TIA, Deep Vein Thrombosis (DVT) Additional Family Medical History / Comment(s): Ovarian cancer. Father Family Medical History: Congestive Heart Failure (CHF) Medications and Allergies Home Medications Medication Instructions Recorded Confirmed Type Levothyroxine Sodium [Synthroid] 100 mcg PO QAM 09/24/14 08/30/24 History lisinopriL [Zestril] 20 mg PO QAM 04/27/22 08/30/24 History Atorvastatin [Lipitor] 10 mg PO HS 07/11/22 08/30/24 History Gabapentin 300 mg PO BID PRN 08/14/23 08/30/24 History Acetaminophen [Tylenol] 325 - 650 mg PO Q4H PRN 03/01/24 08/30/24 History Seaaaoc-Fvfh-Oags [id number] 1 each PO Q6HR PRN 03/01/24 08/30/24 History [Excedrin] Cetirizine HCl [Zyrtec] 5 mg PO DAILY 04/23/24 08/30/24 History Acetaminophen Tab [Tylenol] 650 mg PO Q6H #30 tab 08/30/24 Rx Docusate [Colace] 100 mg PO BID #20 capsule 08/30/24 Rx Ibuprofen [Motrin] 600 mg PO Q6HR PRN #40 tab 08/30/24 Rx oxyCODONE HCL [OxyIR] 5 mg PO Q6H PRN 3 Days #10 tab 08/30/24 Rx Allergies Allergy/AdvReac Type Severity Reaction Status Date / Time Antihistamines - Alkylamine AdvReac staceyttasher, Verified 08/30/24 06:37 lightheaded Physical Exam Vitals: Vital Signs Temp Pulse Pulse Resp BP Pulse Ox 08/30/24 13:20 55 L 16 112/76 96 08/30/24 13:05 58 L 16 104/76 100 08/30/24 12:50 72 16 108/58 100 08/30/24 12:35 62 16 116/59 100 08/30/24 12:20 53 L 16 119/61 100 08/30/24 12:10 54 L 16 107/75 100 08/30/24 11:55 52 L 16 110/56 100 08/30/24 11:40 51 L 16 117/56 100 08/30/24 11:25 47 L 16 111/54 100 08/30/24 11:10 70 16 103/65 96 08/30/24 11:04 48 L 16 97/61 95 08/30/24 10:55 49 L 16 71/40 96 08/30/24 10:45 39 L 16 77/40 96 08/30/24 10:25 43 L 16 127/92 95 08/30/24 10:20 61 16 104/68 95 08/30/24 09:50 57 L 16 115/72 96 08/30/24 09:35 54 L 16 129/87 95 08/30/24 09:21 48 L 16 140/70 94 L 08/30/24 09:06 48 L 16 138/66 100 08/30/24 08:51 57 L 16 136/61 100 08/30/24 08:36 97.2 F L 83 18 146/70 96 08/30/24 06:40 97.0 F L 53 L 16 189/84 97 Intake and Output 08/29/24 08/30/24 08/30/24 22:59 06:59 14:59 Intake Total 100 1550 Output Total 5 Balance 100 1545 Intake: IV 100 1550 Output: Estimated Blood Loss 5 Other: Weight 96.6 kg Results 08/30/24 11:20 08/30/24 11:20 CBC 08/30/24 08/30/24 Range/Units 06:56 11:20 WBC 3.9 5.3 (3.8-10.6) k/uL RBC 4.33 3.31 L (3.80-5.40) m/uL Hgb 13.2 10.5 L (11.4-16.0) gm/dL Hct 39.6 30.3 L (34.0-46.0) % Plt Count 179 164 (150-450) k/uL Comprehensive Metabolic Panel 08/30/24 08/30/24 Range/Units 07:28 11:20 Sodium 140 138 (137-145) mmol/L Potassium 4.1 4.1 (3.5-5.1) mmol/L Chloride 108 H 111 H (98-107) mmol/L Carbon Dioxide 28 24 (22-30) mmol/L BUN 13 13 (7-17) mg/dL Creatinine 0.61 0.57 (0.52-1.04) mg/dL Glucose 96 160 H (74-99) mg/dL Calcium 9.3 8.4 (8.4-10.2) mg/dL Current Medications Generic Name Dose Route Start Last Admin Trade Name Freq PRN Reason Stop Dose Admin Hydromorphone HCl 0.5 mg 08/30/24 07:00 Hydromorphone 0.5 Mg/0.5 Ml Syringe IVP 08/30/24 23:00 Q5M PRN Phase 1 or 2 - Pain Control Lactated Ringer's 1,000 mls @ 20 mls/hr 08/30/24 05:54 08/30/24 10:51 Lactated Ringers IV 09/29/24 05:53 20 mls/hr .Q24H FALLON Administration Midazolam HCl 2 mg 08/30/24 07:00 Midazolam 2 Mg/2 Ml Vial IV 08/30/24 23:00 ONCE PRN Pre-Op Anxiety Intake and Output 08/29/24 08/30/24 08/30/24 22:59 06:59 14:59 Intake Total 100 1550 Output Total 5 Balance 100 1545 Intake: IV 100 1550 Output: Estimated Blood Loss 5 Other: Weight 96.6 kg 08/30/24 11:20 08/30/24 11:20
[2024-08-30] MEDS: SODIUM CHLORIDE 0.9% 1,000 ML IV SCH (15:13)
[2024-08-30] MEDS: KETOROLAC 15 MG/ML 1 ML VIAL IVP PRN (17:24)
[2024-08-30] MEDS: HYDROcodone/APAP 5-325MG 1 EACH TAB PO PRN (17:41)
--- NOTE | 2024-08-30 17:59 | CA ---
Transthoracic Echo Report Name: Christina Rosen Age: 74 Gender: F : 1950 Exam Date: 08/30/2024 15:06 Exam Location: [facility] Ht (in): 67 Wt (lb): 212 Ordering Physician: Gwen Jeffrey Attending/Referring Phys: [id number], Rachele Management Accountant Tamara Rodrigez RDCS Procedure CPT: Indications: Presyncope, LV function Cardiac Hx: Technical Quality: Very technically difficult study Contrast 1: Definity Total Dose (mL): 2 Contrast 2: Total Dose (mL): MEASUREMENTS (Male / Female) Normal Values 2D ECHO LV Diastolic Diameter PLAX 4.1 cm 4.2 - 5.9 / 3.9 - 5.3 cm LV Systolic Diameter PLAX 2.8 cm IVS Diastolic Thickness 0.8 cm 0.6 - 1.0 / 0.6 - 0.9 cm LVPW Diastolic Thickness 1.1 cm 0.6 - 1.0 / 0.6 - 0.9 cm LV Relative Wall Thickness 0.5 LVOT Diameter 1.9 cm Ascending Aorta Diameter 3.0 cm DOPPLER AV Peak Velocity 127.4 cm/s AV Peak Gradient 6.5 mmHg AV Mean Velocity 95.2 cm/s AV Mean Gradient 4.0 mmHg AV Velocity Time Integral 21.9 cm LVOT Peak Velocity 98.6 cm/s LVOT Peak Gradient 3.9 mmHg LVOT Velocity Time Integral 17.4 cm LVOT Stroke Volume 48.8 cm??? LVOT Stroke Volume Index 23.5 ml/m??? LVOT Cardiac Index 1712.1 cm???/min???m??? AV Area Cont Eq vti 2.2 cm??? AV Area Cont Eq pk 2.2 cm??? MV Area PHT 5.5 cm??? Mitral E Point Velocity 41.5 cm/s Mitral A Point Velocity 65.4 cm/s Mitral E to A Ratio 0.6 MV Deceleration Time 138.6 ms FINDINGS Left Ventricle Left ventricular ejection fraction is estimated at 55-60 %. Left ventricular cavity size normal. Normal left ventricular systolic function with no obvious regional wall motion abnormalities. Right Ventricle Right ventricle not well visualized. Unable to estimate the right ventricular systolic pressure. Right Atrium Right atrium not well visualized. Left Atrium Normal left atrial size. Mitral Valve Structurally normal mitral valve. No mitral stenosis, regurgitation or prolapse. Aortic Valve Aortic valve not well visualized. No aortic valve stenosis or regurgitation. Tricuspid Valve Tricuspid valve not well visualized. No tricuspid stenosis, regurgitation or prolapse. Pulmonic Valve Pulmonic valve not well visualized. Pericardium No pericardial effusion. Aorta Normal size aortic root and proximal ascending aorta. CONCLUSIONS Technically difficult study. Definity ECHO contrast used for improved visualization of the endocardial borders (inadequate visualization of two or more contiguous segments). Normal left ventricular size and systolic function Very limited Doppler study Previewed by: Dr. Myriam Farrell MD (Electronically Signed) Final Date: 30 August 2024 17:58
[2024-08-30] MEDS: ATORVASTATIN 10 MG TAB PO SCH (20:33)
[2024-08-31 09:02] LABS: Basophils # (A) 0.02 X 10*3/uL (0.00-0.10); Basophils % (A) 0.3 %; Eosinophils # (A) 0.03 X 10*3/uL (0.04-0.35); Eosinophils % (A) 0.5 %; HCT 25.6 % (37.2-46.3); HGB 8.5 g/dL (12.0-15.0); Lymphocytes # (A) 1.46 X 10*3/uL (0.90-5.00); Lymphocytes % (A) 22.6 %; MCH 29.8 pg (27.0-32.0); MCHC 33.2 g/dL (32.0-37.0); MCV 89.8 FL (80.0-97.0); Mean Platelet Volume 9.9 FL (9.5-12.2); Monocytes # (A) 0.37 X 10*3/uL (0.20-1.00); Monocytes % (A) 5.7 %; NRBC Per 100 WBC 0 X 10*3/uL (0.00-0.01); Neutrophils # (A) 4.56 X 10*3/uL (1.80-7.70); Neutrophils % (A) 70.6 %; Platelet Count 173 X 10*3/uL (140-440); RBC 2.85 X 10*6/uL (4.10-5.20); RDW 13.5 % (11.5-14.5); WBC 6.46 X 10*3/uL (4.50-10.00)
[2024-08-31 09:13] LABS: Calcium 8.6 mg/dL (8.7-10.3); Carbon Dioxide 26.1 mmol/L (21.6-31.8); Chloride 106 mmol/L (96-109); Glucose 112 mg/dL (70-110); Potassium 4.9 mmol/L (3.5-5.5); Sodium 140 mmol/L (135-145)
[2024-08-31] MEDS: lisinopriL 20 MG TAB PO SCH (09:15)
--- NOTE | 2024-08-31 11:55 | P.PN ---
Subjective Progress Note Date: 08/31/24 HISTORY OF PRESENT ILLNESS: This is a 74-year-old female with a past medical history significant for hy pertension and hyperlipidemia. 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 We have been asked to see the patient in consultation for postoperative bradycardia and presyncope. Patient examined at the bedside. Patient states she broke her back last year after a fall at home due to her dog. She reports she has been having some ongoing back pain and thought it was secondary to her spinal fracture. However when her symptoms persisted she sought further evaluation. She had an ultrasound performed revealing evidence of layering gallstones. Patient underwent elective laparoscopic cholecystectomy today with Dr. Ng. Postoperatively, the patient was in the process of being discharged home when she sat on the side of the bed and began to feel dizzy and lightheaded. Apparently the patient was not hooked up to telemetry monitoring at this time. However she was hooked up to a pulse oximeter and blood pressure cuff. The patient's states that he saw her heart rate go to 39 and her blood pressure was in the 70s. He reports that she appeared pale. The patient denies losing consciousness. The patient denies any previous episodes of presyncope or syncope. She denied having any chest pain or pressure. She denied any shortness of breath. The patient was admitted to [facility] for observation. The patient states she has since been up to the bathroom and ambulated without any complaints of dizziness or lightheadedness. She is currently eating lunch at the time of my examination. She reports shoulder pain secondary to laparoscopic surgery. Vital signs are stable. Telemetry reveals sinus mechanism. She is a non-smoker. DIAGNOSTICS: - EKG reveals sinus mechanism. Repeat EKG reveals sinus mechanism with a PVC. No signs of acute ischemia. - Laboratory data: WBC 5.3. Hemoglobin 10.5. Platelet count 164. Sodium 138. Potassium 4.1. BUN 13. Creatinine 0.57. Magnesium 1.7. - Current home cardiac medications include Lipitor 10 mg at night and lisinopril 20 mg in the morning - No previous echocardiogram, stress test, or cardiac catheterization available in EMR for review Progress note 08/31/2024 Patient is seen and examined at bedside this a.m. Heart heart rate on telemetry is around 80s with normal sinus rhythm as a baseline rhythm. She denies having any active chest pain chest pressure. PHYSICAL EXAM: VITAL SIGNS: Reviewed. GENERAL: Well-developed in no acute distress. HEENT: Head is normocephalic. Pupils are equal, round. Sclerae anicteric. Mucous membranes of the mouth are moist. Neck supple. No JVD or thyromegaly LUNGS: Respirations even and unlabored. Lungs essentially clear to auscultation bilaterally. HEART: Regular rate and rhythm. S1 and S2 heard. ABDOMEN: Soft. Nondistended. Nontender. EXTREMITIES: Normal range of motion. No clubbing or cyanosis. Peripheral pulses intact. No lower extremity edema NEUROLOGIC: Awake and alert. Oriented x 3. ASSESSMENT: Status post laparoscopic cholecystectomy Postoperative bradycardia and presyncope, likely vasovagal secondary to anesthesia History of hypertension History of hyperlipidemia History of L1 vertebral fracture secondary to fall from her dog, 2022 History of L4-S1 decompression and fusion Pertinent cardiac testing Her echocardiogram showed preserved LV size systolic function with no significant regional or structural abnormalities. She does not have any significant valve dysfunction. Her TSH is within normal limits PLAN: Patients symptoms likely secondary to vasovagal due to surgery and anesthesia Resume home cardiac medications Patient is cleared from cardiovascular standpoint. Please reconsult us in case of any question. Cardiology team will sign off. Recommended outpatient follow-up with cardiology if patient has symptoms of leighann st pain chest pressure palpitation lightheadedness dizziness or shortness of breath. Objective - Vital Signs Vital signs: Vital Signs Temp 98.5 F 08/31/24 07:00 Pulse 66 08/31/24 07:00 Resp 15 08/31/24 07:00 BP 156/70 08/31/24 07:00 Pulse Ox 90 L 08/31/24 07:00 FiO2 Intake & Output 08/30/24 08/31/24 08/31/24 18:59 06:59 18:59 Intake Total 1550 118 Output Total 5 Balance 1545 118 Weight 96.6 kg Intake: IV 1550 Oral 118 Output: Estimated Blood Loss 5 Other: Voiding Method Toilet Toilet Toilet # Voids 3 - Labs CBC & Chem 7: 08/31/24 05:29 08/31/24 05:29 Labs: Abnormal Lab Results - Last 24 Hours (Table) 08/31/24 08/31/24 Range/Units 05:29 05:29 RBC 2.85 L (4.10-5.20) X 10*6/uL Hgb 8.5 L (12.0-15.0) g/dL Hct 25.6 L (37.2-46.3) % Eosinophils # 0.03 L (0.04-0.35) X 10*3/uL Glucose 112 H (70-110) mg/dL Calcium 8.6 L (8.7-10.3) mg/dL
--- NOTE | 2024-08-31 14:44 | P.PN ---
Subjective Progress Note Date: 08/31/24 CHIEF COMPLAINT: Cholecystitis. HISTORY OF PRESENT ILLNESS: The patient is a 74-year-old female admitted after syncopal episode following surgery. Patient reports having blood soaked 2x2 dressing at her upper quadrant incision that has resolved after change of dressing this morning. She has ambulated several times to the bathroom. She tolerated beef Stroganoff for lunch. "I want to go home." She reports, "I feel great!" Patient had been seen earlier by cardiology and cleared for discharge. No current signs of bleeding. ROS: No reports of nausea and vomiting. No fevers or chills. No new chest pain. No productive sputum PHYSICAL EXAM: VITAL SIGNS: Reviewed CONSTITUTIONAL: Well developed and in no acute distress. EYES: Conjuctivae without sclera icterus. Extraocular movements grossly intact. HEAD, EARS, NOSE, THROAT: Moist buccal mucosa. Head is atraumatic, normocephalic. Hears conversational speech. No nasal drainage. RESPIRATORY: Non-labored respirations and equal bilateral excursions. CARDIOVASCULAR: Palpable 2+ radial pulses. ABDOMEN: Incision intact. Upper right abdomen dressing 2x2 without bleeding or shadowing over 6 hrs ago. MUSCULOSKELETAL: No gross deformity of the lower extremities noted. No clubbing. No cyanosis. SKIN: Good skin turgor. Well perfused. NEUROLOGIC: Cranial nerves II through XII grossly intact. No focal or lateralizing signs. PSYCH: Appropriate affect. Alert and oriented to person, place and time. CLINICAL LABS: Reviewed. Hgb down less than 8.5, anemia from 13.2 STUDIES: ECHO report reviewed with ejection fraction over 45% and normal. EKG: Reviewed. Normal sinus rhythm. ASSESSMENT: 1. Syncopal vasovagal response following surgery 2. Cholecystitis status post cholecystectomy. 3. Obesity due to excess calories. 4. Acute blood loss anemia. PLAN: 1. Overnight issues and yesterday event has resolved. 2. Labs reviewed with decline in hemoglobin and no further active bleeding. 3. Patient cleared for discharge from cardiology. 4. Close follow up as outpatient with cardiology and primary care provider upon discharge. Objective - Vital Signs Vital signs: Vital Signs Temp 98.5 F 08/31/24 07:00 Pulse 66 08/31/24 07:00 Resp 15 08/31/24 07:00 BP 156/70 08/31/24 07:00 Pulse Ox 90 L 10/12/24 07:00 FiO2 Intake & Output 08/30/24 08/31/24 08/31/24 18:59 06:59 18:59 Intake Total 1550 118 Output Total 5 Balance 1545 118 Weight 96.6 kg Intake: IV 1550 Oral 118 Output: Estimated Blood Loss 5 Other: Voiding Method Toilet Toilet Toilet # Voids 3 - Labs CBC & Chem 7: 08/31/24 05:29 08/31/24 05:29 Labs: Abnormal Lab Results - Last 24 Hours (Table) 08/31/24 08/31/24 Range/Units 05:29 05:29 RBC 2.85 L (4.10-5.20) X 10*6/uL Hgb 8.5 L (12.0-15.0) g/dL Hct 25.6 L (37.2-46.3) % Eosinophils # 0.03 L (0.04-0.35) X 10*3/uL Glucose 112 H (70-110) mg/dL Calcium 8.6 L (8.7-10.3) mg/dL
[2024-08-31 15:03] VITALS: BP 123/71; PULSE 94; RESP 16; TEMP 98.3
== END 2024-08-31 15:45 | disposition home or self-care (01) ==
LOC: OR 06:05 → 6NMEDSUR 08:18 → OR 08-31 15:45
PROVIDERS: ATTEND Surgery
CPT/HCPCS: 80048; 83735; 84443; 85025; 85027; 88304; 93306

== ENCOUNTER → 2024-09-11 | Outpatient (CLI) | payer MEDICARE ==
--- NOTE | 2024-09-11 13:31 | US ---
EXAMINATION TYPE: US abdomen APPY DATE OF EXAM: 09/11/2024 COMPARISON: NONE CLINICAL INDICATION: Female, 74 years old with history of R10.31 RLQ ABD PAIN; RLQ pain TECHNIQUE: Multiple sonographic images of the right lower quadrant were obtained with graded compress ion with grayscale and color Doppler imaging. FINDINGS: APPENDIX Is the appendix seen in its entirety from the proximal cecum to distal end: No Is the appendix compressible: No Does the appendix wall appear hypervascular: No Is an appendicolith present: No NET DEVELOPER CONSULTANT NOTES: Appendix not clearly identifiable. Apparent fluid collection seen in RLQ measuring 7.4 x 7.1 x 2.3 cm, etiology uncertain. IMPRESSION: We are unable to identify the appendix. Further clinical correlation will be needed for any suspected acute appendicitis. However, there is an apparent fluid collection in the right lower quadrant measu ring 7.4 x 7.1 x 2.3 cm. Etiology is unclear. Further clinical correlation will be needed. Acute intr a-abdominal process not excluded. [facility], , 09/11/2024 1:28 PM
== END | disposition home or self-care (01) ==
LOC: RADUSWWP 12:30
PROVIDERS: ATTEND Family Medicine
DX: R10.31 Right lower quadrant pain (principal)
CPT/HCPCS: 76705

== ENCOUNTER 2024-09-12 14:43 | Emergency (ER) | payer MEDICARE ==
[2024-09-12 15:00] VITALS: TEMP 98.2
--- NOTE | 2024-09-12 15:13 | ED ---
Abdominal Pain HPI - General Source: patient, RN notes reviewed Mode of arrival: ambulatory Limitations: no limitations <Grace Robison - Last Filed: 09/12/24 15:12> - General Source: patient, RN notes reviewed, old records reviewed Mode of arrival: ambulatory Limitations: no limitations - History of Present Illness MD Complaint: abdominal pain -: days(s) Location: RLQ Radiation: RLQ Migration to: suprapubic Severity: moderate Severity scale (1-10): 6 Quality: fullness, sharp Consistency: constant Improves With: nothing Worsens With: nothing Associated Symptoms: denies other symptoms <Andres Buckley - Last Filed: 09/12/24 21:10> - General Chief Complaint: Abdominal Pain Stated Complaint: post op comp Time Seen by Provider: 09/12/24 14:58 - History of Present Illness Initial Comments: [id number] female presents emergency department chief complaint of right lower quadrant abdominal pain and chills. Patient states that she had a cholecystectomy completed on 08/[address] Dickinson and that was scheduled. She has been having right lower quadrant pain over the past few days. Ultrasound ordered yesterday by her primary care provider is inconclusive. Denies nausea, vomiting, fevers (Grace Robison) This is a 74-year-old female to the ER for abdominal pain lower quadrant pain some chills no fevers, patient was sent in with positive outpatient ultrasound (Andres Buckley) - Related Data Home Medications Medication Instructions Recorded Confirmed Levothyroxine Sodium [Synthroid] 100 mcg PO DAILY 09/24/14 09/12/24 lisinopriL [Zestril] 20 mg PO DAILY 04/27/22 09/12/24 Atorvastatin [Lipitor] 10 mg PO HS 07/11/22 09/12/24 Gabapentin 300 mg PO BID PRN 08/14/23 09/12/24 Cetirizine HCl [Zyrtec] 10 mg PO DAILY 09/12/24 09/12/24 Loperamide [Imodium] 2 mg PO QID PRN 09/12/24 09/12/24 Nitrofurantoin Monohyd/M-Cryst 100 mg PO DIRECTED 09/12/24 09/12/24 [Macrobid] Previous Rx's Medication Instructions Recorded Ibuprofen [Motrin] 600 mg PO Q6HR PRN #40 tab 08/30/24 oxyCODONE HCL [OxyIR] 5 mg PO Q6H PRN 3 Days #10 tab 08/30/24 Allergies Allergy/AdvReac Type Severity Reaction Status Date / Time Antihistamines - Alkylamine AdvReac staceylj, Verified 09/12/24 18:26 lightheaded Review of Systems ROS Other: All systems not noted in ROS Statement are negative. <Grace Robison - Last Filed: 09/12/24 15:12> ROS Other: All systems not noted in ROS Statement are negative. <Andres Buckley - Last Filed: 09/12/24 21:10> ROS Statement: Those systems with pertinent positive or pertinent negative responses have been documented in the HPI. Past Medical History Past Medical History: Cancer, Hyperlipidemia, Hypertension, Thyroid Disorder Additional Past Medical History / Comment(s): chronic back pain, Hx migraines, arthritis, skin cancer. Hx COVID 05/2022,covid Nov 2023, History of Any Multi-Drug Resistant Organisms: None Reported Past Surgical History: Bladder Surgery, Cholecystectomy, Joint Replacement, Orthopedic Surgery Additional Past Surgical History / Comment(s): D&C, bilateral foot surgery. PAIN CLINIC PROCEDURES, COLONOSCOPIES, BILAT KNEE SCOPES, RT SOFIA Past Anesthesia/Blood Transfusion Reactions: No Reported Reaction Additional Past Anesthesia/Blood Transfusion Reaction / Comment(s): Mother- cold and shaky. Past Psychological History: No Psychological Hx Reported Smoking Status: Never smoker Past Alcohol Use History: Occasional Past Drug Use History: None Reported - Past Family History Mother Family Medical History: Cancer, CVA/TIA, Deep Vein Thrombosis (DVT) Additional Family Medical History / Comment(s): Ovarian cancer. Father Family Medical History: Congestive Heart Failure (CHF) <Grace Robison - Last Filed: 09/12/24 15:12> General Exam Limitations: no limitations <Grace Robison - Last Filed: 09/12/24 15:12> General appearance: alert, in no apparent distress Head exam: Present: atraumatic, normocephalic, normal inspection Eye exam: Present: normal appearance, PERRL, EOMI. Absent: scleral icterus, conjunctival injection, periorbital swelling ENT exam: Present: normal exam, mucous membranes moist Neck exam: Present: normal inspection. Absent: tenderness, meningismus, lymphadenopathy Respiratory exam: Present: normal lung sounds bilaterally. Absent: respiratory distress, wheezes, rales, rhonchi, stridor Cardiovascular Exam: Present: regular rate, normal rhythm, normal heart sounds. Absent: systolic murmur, diastolic murmur, rubs, gallop, clicks GI/Abdominal exam: Present: soft, normal bowel sounds. Absent: distended, tenderness, guarding, rebound, rigid Extremities exam: Present: normal inspection, full ROM, normal capillary refill. Absent: tenderness, pedal edema, joint swelling, calf tenderness Back exam: Present: normal inspection Neurological exam: Present: alert, oriented X3, CN II-XII intact Psychiatric exam: Present: normal affect, normal mood Skin exam: Present: warm, dry, intact, normal color. Absent: rash <Andres Buckley - Last Filed: 09/12/24 21:10> - General Exam Comments Initial Comments: Visual Physical Exam Vital signs reviewed General: Well-appearing, nontoxic, no acute distress. Head: Normocephalic, atraumatic Eyes: PERRLA, EOMI ENT: Airway patent Chest: Nonlabored breathing Skin: No visual rash, normal skin tone Neuro: Alert and oriented 3 Musculoskeletal: No gross abnormalities (Stieler,Grace) Course <Andres Buckley - Last Filed: 09/12/24 21:10> Vital Signs 09/12/24 14:57 Temperature 98.2 F Pulse Rate 69 Respiratory 16 Rate Blood Pressure 144/82 O2 Sat by Pulse 99 Oximetry - Reevaluation(s) Reevaluation #1: 09/12/24 18:13 Medical records reviewed (Andres Buckley) Reevaluation #4: Was pt. sent in by a medical professional or institution (, PA, TABLE CUT OFF SAW OPERATOR, urgent care, hospital, or shelter...) When possible be specific @ -no Did you speak to anyone other than the patient for history (EMS, parent, family, police, friend...)? What history was obtained from this source @ -no Did you review nursing and triage notes (agree or disagree)? Why? @ -agree Are old charts reviewed (outside hosp., previous admission, EMS record, old EKG, old radiological studies, urgent care reports/EKG's, shelter records)? Report findings @ -yes Differential Diagnosis (chest pain, altered mental status, abdominal pain women, abdominal pain men, vaginal bleeding, weakness, fever, dyspnea, syncope, headache, dizziness, GI bleed, back pain, seizure, CVA, palpatations, mental health, musculoskeletal)? @ -prior EKG interpreted by me (3pts min.). @ -yes X-rays interpreted by me (1pt min.). @ -yes negative for acute disease CT interpreted by me (1pt min.). @ -no U/S interpreted by me (1pt. min.). @ -no What testing was considered but not performed or refused? (CT, X-rays, U/S, l abs)? Why? @ -none What meds were considered but not given or refused? Why? @ -none Did you discuss the management of the patient with other professionals (professionals i.e. , PA, TABLE CUT OFF SAW OPERATOR, lab, RT, psych nurse, aids social worker, translator and interpreter, teacher, chief nursing officer, family independence case manager)? Give summary @ -no Was smoking cessation discussed for >3mins.? @ -no Was critical care preformed (if so, how long)? @ -no Were there social determinants of health that impacted care today? How? (Homelessness, low income, unemployed, alcoholism, drug addiction, transportation, low edu. Level, literacy, decrease access to med. care, alf, rehab)? @ -none Was there de-escalation of care discussed even if they declined (Discuss DNR or withdrawal of care, Hospice)? DNR status @ -no What co-morbidities impacted this encounter? (DM, HTN, Smoking, COPD, CAD, Cancer, CVA, ARF, Chemo, Hep., AIDS, mental health diagnosis, sleep apnea, morbid obesity)? @ -none Was patient admitted / discharged? Hospital course, mention meds given and route, prescriptions, significant lab abnormalities, going to OR and other pertinent info. @ - Undiagnosed new problem with uncertain prognosis? @ -no Drug Therapy requiring intensive monitoring for toxicity (Heparin, Nitro, Insulin, Cardizem)? @ -no Were any procedures done? @ -no Diagnosis/symptom? @ - Acute, or Chronic, or Acute on Chronic? @ -Acute Uncomplicated (without systemic symptoms) or Complicated (systemic symptoms)? @ -Complicated Side effects of treatment? @ -no Exacerbation, Progression, or Severe Exacerbation? @ -exacerbation Poses a threat to life or bodily function? How? (Chest pain, [place], [place], pneumonia, PE, COPD, DKA, ARF, appy, cholecystitis, CVA, Diverticulitis, Homicidal, Suicidal, threat to staff... and all critical care pts) @ -yes (Andres Bukcley) Reevaluation #5: Differential Abdominal Pain Women: Appendicitis, Cholecystitis, diverticulosis, ischemic bowel, pancreatitis, hepatitis, UTI, gastroenteritis, AAA, incarcerated hernia, bowel obstruction, constipation, inflammatory bowel, hepatitis, peptic ulcer disease, splenic infarction, perforated viscus, vulvitis, ovarian torsion, PID, kidney stone, placenta abruption, this is not meant to be an all-inclusive list (Andres Buckley) Medical Decision Making <Grace Robison - Last Filed: 09/12/24 15:12> - Lab Data Result diagrams: 09/12/24 17:58 09/12/24 17:58 <Andres Buckley - Last Filed: 09/12/24 21:10> - Medical Decision Making I completed the quick note portion of this chart signed Grace Robison PA-C (Grace Robison) - Lab Data Lab Results 09/12/24 09/12/24 09/12/24 Range/Units 17:58 17:58 17:58 WBC 5.7 (3.8-10.6) k/uL RBC 3.90 (3.80-5.40) m/uL Hgb 11.9 (11.4-16.0) gm/dL Hct 35.6 (34.0-46.0) % MCV 91.5 (80.0-100.0) fL MCH 30.5 (25.0-35.0) pg MCHC 33.3 (31.0-37.0) g/dL RDW 15.6 H (11.5-15.5) % Plt Count 256 (150-450) k/uL MPV 7.5 Neutrophils % 62 % Lymphocytes % 30 % Monocytes % 4 % Eosinophils % 3 % Basophils % 0 % Neutrophils # 3.5 (1.3-7.7) k/uL Lymphocytes # 1.7 (1.0-4.8) k/uL Monocytes # 0.2 (0-1.0) k/uL Eosinophils # 0.2 (0-0.7) k/uL Basophils # 0.0 (0-0.2) k/uL Poikilocytosis Slight PT (10.0-12.5) sec INR (<1.2) APTT (22.0-30.0) sec Sodium 141 (137-145) mmol/L Potassium 4.0 (3.5-5.1) mmol/L Chloride 106 (98-107) mmol/L Carbon Dioxide 28 (22-30) mmol/L Anion Gap 7 mmol/L BUN 11 (7-17) mg/dL Creatinine 0.58 (0.52-1.04) mg/dL Est GFR (CKD-EPI)AfAm >90 (>60 ml/min/1.73 sqM) Est GFR (CKD-EPI)NonAf >90 (>60 ml/min/1.73 sqM) Glucose 92 (74-99) mg/dL Plasma Lactic Acid Dhaval 0.8 (0.7-2.0) mmol/L Calcium 9.5 (8.4-10.2) mg/dL Phosphorus (2.5-4.5) mg/dL Magnesium (1.6-2.3) mg/dL Total Bilirubin 1.1 (0.2-1.3) mg/dL AST 26 (14-36) U/L ALT 12 (4-34) U/L Alkaline Phosphatase 90 (38-126) U/L Total Protein 7.6 (6.3-8.2) g/dL Albumin 4.8 (3.5-5.0) g/dL Amylase 47 (30-110) U/L Lipase 87 (23-300) U/L 09/12/24 09/12/24 Range/Units 17:58 18:43 WBC (3.8-10.6) k/uL RBC (3.80-5.40) m/uL Hgb (11.4-16.0) gm/dL Hct (34.0-46.0) % MCV (80.0-100.0) fL MCH (25.0-35.0) pg MCHC (31.0-37.0) g/dL RDW (11.5-15.5) % Plt Count (150-450) k/uL MPV Neutrophils % % Lymphocytes % % Monocytes % % Eosinophils % % Basophils % % Neutrophils # (1.3-7.7) k/uL Lymphocytes # (1.0-4.8) k/uL Monocytes # (0-1.0) k/uL Eosinophils # (0-0.7) k/uL Basophils # (0-0.2) k/uL Poikilocytosis PT 10.6 (10.0-12.5) sec INR 1.0 (<1.2) APTT 24.3 (22.0-30.0) sec Sodium (137-145) mmol/L Potassium (3.5-5.1) mmol/L Chloride (98-107) mmol/L Carbon Dioxide (22-30) mmol/L Anion Gap mmol/L BUN (7-17) mg/dL Creatinine (0.52-1.04) mg/dL Est GFR (CKD-EPI)AfAm (>60 ml/min/1.73 sqM) Est GFR (CKD-EPI)NonAf (>60 ml/min/1.73 sqM) Glucose (74-99) mg/dL Plasma Lactic Acid Dhaval (0.7-2.0) mmol/L Calcium (8.4-10.2) mg/dL Phosphorus 3.7 (2.5-4.5) mg/dL Magnesium 2.0 (1.6-2.3) mg/dL Total Bilirubin (0.2-1.3) mg/dL AST (14-36) U/L ALT (4-34) U/L Alkaline Phosphatase (38-126) U/L Total Protein (6.3-8.2) g/dL Albumin (3.5-5.0) g/dL Amylase (30-110) U/L Lipase (23-300) U/L Disposition <Grace Robison - Last Filed: 09/12/24 15:12> Is patient prescribed a controlled substance at d/c from ED?: No Time of Disposition: 21:00 <Andres Buckley - Last Filed: 09/12/24 21:10> Clinical Impression: Abdominal pain, Ovarian cyst, right, Ovarian cyst rupture Disposition: HOME SELF-CARE Condition: Good Instructions (If sedation given, give patient instructions): Abdominal Pain (ED), Ovarian Cyst (ED), Ruptured Ovarian Cyst (ED) Referrals: Nonstaff,Physician [REFERRING] - 1-2 days
[2024-09-12 18:13] LABS: Basophils % (A) 0 %; Eosinophils # (A) 0.2 k/uL (0-0.7); Eosinophils % (A) 3 %; HCT 35.6 % (34.0-46.0); HGB 11.9 gm/dL (11.4-16.0); Lymphocytes # (A) 1.7 k/uL (1.0-4.8); Lymphocytes % (A) 30 %; MCH 30.5 pg (25.0-35.0); MCHC 33.3 g/dL (31.0-37.0); MCV 91.5 fL (80.0-100.0); Mean Platelet Volume 7.5; Monocytes # (A) 0.2 k/uL (0-1.0); Monocytes % (A) 4 %; Neutrophils # (A) 3.5 k/uL (1.3-7.7); Neutrophils % (A) 62 %; Platelet Count 256 k/uL (150-450); Poikilocytosis Slight; RDW 15.6 % (11.5-15.5); WBC 5.7 k/uL (3.8-10.6)
[2024-09-12 18:21] LABS: ALT 12 U/L (4-34); AST 26 U/L (14-36); African American GFR (CKD) >90 (>60 ml/min/1.73 sqM); Albumin 4.8 g/dL (3.5-5.0); Alkaline Phosphatase 90 U/L (38-126); Amylase 47 U/L (30-110); Anion Gap 7 mmol/L; Blood Urea Nitrogen 11 mg/dL (7-17); Calcium 9.5 mg/dL (8.4-10.2); Carbon Dioxide 28 mmol/L (22-30); Chloride 106 mmol/L (98-107); Glucose 92 mg/dL (74-99); Lipase 87 U/L (23-300); Non-African American GFR(CKD) >90 (>60 ml/min/1.73 sqM); Sodium 141 mmol/L (137-145); Total Bilirubin 1.1 mg/dL (0.2-1.3); Total Protein 7.6 g/dL (6.3-8.2)
[2024-09-12] MEDS: MORPHINE SULFATE 4 MG/ML SYRINGE IV STA (18:38)
[2024-09-12] MEDS: SODIUM CHLORIDE 0.9% 1,000 ML IV STA (18:38)
[2024-09-12] MEDS: ONDANSETRON 4 MG/2 ML VIAL IVP STA (18:39)
[2024-09-12 19:14] LABS: Phosphorus 3.7 mg/dL (2.5-4.5)
--- NOTE | 2024-09-12 19:34 | CT ---
EXAMINATION TYPE: CT abdomen pelvis w con DATE OF EXAM: 09/12/2024 COMPARISON: None HISTORY: RLQ abdominal pain. Recent cholecystectomy. CT DLP: 1337.6 mGycm CONTRAST: CT scan of the abdomen and pelvis is performed without Oral Contrast and with IV Contrast, patient in jected with 100ml mL of Isovue 300. FINDINGS: LUNG BASES-: No visible nodule. No infiltrate. LIVER/GB: 6.4 cm cyst posterior segment right hepatic lobe. The gallbladder is surgically absent. Gilberto iary tree is of normal caliber. PANCREAS: No inflammation. 4 cm pancreatic body/tail cyst. This could be further evaluated with MRI to exclude cystic pancreatic neoplasm. The pancreas is otherwise unremarkable. SPLEEN: No splenic enlargement. No lesion seen. ADRENALS: No nodule. No thickening. KIDNEYS/BLADDER: No hydronephrosis. No nephrolithiasis. No distinct renal mass. Urinary bladder g rossly unremarkable. BOWEL: Normal appendix. Normal bowel caliber. No inflammation. Moderate sigmoid diverticulosis with out diverticulitis. GENITAL ORGANS: There is elongate fluid collection adjacent to the right adnexa measuring 7.2 x 2.8 c m this could reflect cyst or cyst with rupture. Consider ultrasound correlation. The uterus and left ovary appear unremarkable. LYMPH NODES: No greater than 1cm abdominal or pelvic lymph nodes are appreciated. AORTA: No significant abnormality. OSSEOUS STRUCTURES: Postoperative changes of lumbar laminectomy and total right hip arthroplasty. OTHER: No significant additional abnormality is seen. IMPRESSION: 1. There is elongate fluid collection adjacent to the right adnexa measuring 7.2 x 2.8 cm this could reflect cyst or cyst with rupture. Consider ultrasound correlation. 2. Cystic pancreatic lesion could be related to pseudocyst or benign pancreatic cystic lesion however cystic neoplasm not excluded. Consider MRI of the pancreas. [facility], , 09/12/2024 7:32 PM
[2024-09-12 19:48] LABS: Partial Thromboplastin Time 24.3 sec (22.0-30.0); Prothrombin Time 10.6 sec (10.0-12.5)
[2024-09-12 21:29] VITALS: BP 135/72; PULSE 60; RESP 18
[2024-09-12 22:19] LABS: Appearance,Urine Clear (Clear); Bilirubin,Urine Negative (Negative); Blood,Urine Negative (Negative); Color,Urine Light Yellow; Glucose,Urine (UA) Negative (Negative); Ketones,Urine Negative (Negative); Leukocyte Esterase,Urine Moderate (Negative); Mucus,Urine Rare /hpf; Nitrite,Urine Positive (Negative); PH, Urine 5.5 (5.0-8.0); Protein,Urine Negative (Negative); RBC,Urine 2 /hpf (0-5); Squamous Epithelial Cell,Urine <1 /hpf (0-4); Urobilinogen,Urine <2.0 mg/dL (<2.0); WBC,Urine 11 /hpf (0-5)
== END 2024-09-12 21:29 | disposition home or self-care (01) ==
LOC: EC 14:43
CPT/HCPCS: 36415; 74177; 80053; 81001; 82150; 83605; 83690; 83735; 84100; 85025; 85610; 85730; 96361; 96374; 96375; 99284

== ENCOUNTER → 2025-04-21 | Outpatient (CLI) | payer MEDICARE ==
[2025-04-21 11:18] VITALS: BP 158/81; PULSE 56; RESP 17; TEMP 97.9
--- NOTE | 2025-04-21 16:15 | P.PAINPG ---
Objective - Vital Signs Vital signs: Intake & Output 04/20/25 04/21/25 04/21/25 18:59 06:59 18:59 Weight 97.522 kg PQRS Measure Charge Sheet Comment: A 74 yr old female with a history of severe and chronic low back pain x 14 mo secondary to radiculopathy, lumbar spondylosis with facet arthropathy without myelopathy presents today for evaluation s/p Caudal TRUDY w lysis. Pt states she experienced 90 % pain relief x 6 mos s/p procedure. Pain level is currently at 9 /10 in intensity, constant, predominantly axial, localized in lower lumbar spine, stinging in character w shooting towards the feet. Pain is provoked by bending/lifting. Pain is alleviated with medications, topical, injections, PT x 4 wks which ended in Dec 2023 which provoked pain, hot showers, heating pad, sitting w LEs elevated, repositioning and rest. Oswestry axial score of 34. Interventional pain procedures completed include L1 Kyphoplasty with cement, L4- S1 TLIF (2022), ESIs L4-L5, BL MBB L3-L5, Lumbar TPIs, L TFESI L5-S1 x1 , BL MBB L5-S1 x1, Caudal TRUDY w Lysis x1 (May 2024) Patient is currently on Neurontin, Tylenol, Advil, BioFreeze gel Patient denies any side effects of the medication(s), denies excessive drowsiness or sleepiness, denies suicidal ideation and reports that the current pain medication is helping to control the pain and improve activities of daily living. Patient denies any motor or sensory deficits. Patient denies any fever or night sweats, denies any change in the bowel movements or urination. Physical Examination: -Constitutional: Cooperative. Not in acute distress . - Neurologic: Cranial nerve II to XII intact. No focal neurological deficits. - Psychatric: Alert & oriented x 3. Matching mood & appropriate affect. Judgment and insight intact. - Musculoskeletal: Cervical spine: Muscle bulk/ tone/ strength in the bilateral upper extremities normal Vertebral body tenderness to palpation over Spurling test positive Distraction test positive Facet loading test positive Thoracic spine Muscle bulk / tone/ strength in the bilateral paraspinal muscles normal Vertebral body tender to palpation over Facet loading test positive Lumbar spine: +Incisional scar Motor bulk/ tone/ strength lower extremities , thigh and legs : 5/5 Deep tendon reflexes : Normal Knee Jerk. Normal Ankle Jerk . Vertebral body tenderness to palpation L5 Coffman test positive BL L5-S1 Lumbar Facet Loading Test positive BL L5-S1 Straight Leg Raise: positive at 30 degrees right side/ left side Gaenslen's Test positive Sacral spine : Severe tenderness over the Sacroiliac joint: right side / left side Range of motion: Flexion of the lumbar spine <60 degrees Range of motion: Extension of the lumbar spine <20 degrees Gaenslen's Test positive Romaine's Test positive Wendy test: positive right side / left side Thigh Thrust Test Sacral Thrust Test Imaging: CT non contrast of the lumbar spine from 08/02/23 reviewed MRI non contrast of the lumbar spine from 03/28/24 reviewed Assessment and plan: Chronic low back pain secondary to L1 Kyphoplasty, L4-S1 TLIF Recommendation of Caudal TRUDY w Lysis #2. Risks, benefits of procedure discussed and pt verbalized understanding. Protocol for discontinuation/ continuation of medications catarino procedure discussed. Minimal anesthesia including Fentanyl and Versed if clincally indicated. All patient questions answered I have spent less than 30 minutes on patient care today. Dr Lan was available by phone for the evaluation of this patient. The time was used to review the medical records including relevant urine studies and Prescription history (MAPs), review of the available imaging, evaluation and examination of the patient, coordination of care with the medical staff and if applicable referring physicians, as well as creation of the medical record - Pain Location Lower Back Non-Pharmacological Interventions: Heat Pharmacological Interventions: Block PQRS Narrative: Smoking Status Never smoker Hx Alcohol Use (MH) No Home Medications: Ambulatory Orders Levothyroxine Sodium [Synthroid] 100 mcg PO DAILY 09/24/14 lisinopriL [Zestril] 20 mg PO DAILY 04/27/22 Atorvastatin [Lipitor] 10 mg PO HS 07/11/22 Gabapentin 300 mg PO BID PRN 08/14/23 Ibuprofen [Motrin] 600 mg PO Q6HR PRN #40 tab 08/30/24 oxyCODONE HCL [OxyIR] 5 mg PO Q6H PRN 3 Days #10 tab 08/30/24 Cetirizine HCl [Zyrtec] 10 mg PO DAILY 09/12/24 Loperamide [Imodium] 2 mg PO QID PRN 09/12/24 Nitrofurantoin Monohyd/M-Cryst [Macrobid] 100 mg PO DIRECTED 09/12/24 Controlled Substance Measures - Controlled Substance Measures Is patient prescribed a controlled substance at discharge?: No
== END ==
LOC: PNWHC3 10:00
PROVIDERS: ATTEND Specialist
DX: M47.816 Spondylosis without myelopathy or radiculopathy, lumbar region (principal); G89.29 Other chronic pain; Z98.890 Other specified postprocedural states; Z88.8 Allergy status to other drugs, medicaments and biological substances
CPT/HCPCS: 99211